=== PATIENT | female | born 1940 | race Caucasian/White ===

== ENCOUNTER 2016-09-23 05:14 | Inpatient (IN) | payer MEDICARE, OTHER ==
--- NOTE | 2016-09-17 12:06 | HP ---
PATIENT: FLY ALMAZAN MEDICAL RECORD: [id number] ACCOUNT: [id number] LOCATION[facility] : 38 ADMISSION DATE: 09/23/16 HISTORY AND PHYSICAL EXAMINATION FLY Wallace (76yo, F) ID# [id number]. Date/Time09/15/2016 09:[id number] Dept.NP_[facility] ClinicProviderEDBAKARI HYDE MDInsuranceMed Primary: [place]) Insurance # : [id number] PCP : PATTI MIRELES Referring Provider Name : PATTI MIRELES Employer Name : RETIRED Med Secondary: FOR LIFE ( - MEDICARE SUPPLEMENT) Insurance # : [id number] PCP : PATTI MIRELES Referring Provider Name : PATTI MIRELES Employer Name : RETIRED Prescription: ESI1 - Member is eligible. Chief Complaint Carotid stenosis Followup: Carotid artery stenosis s/p RCEA 07/10/16 Patient's Care Team Primary Care Provider (): PATTI MIRELES: [address] [address], , Referring Provider (): PATTI MIRELES: [address] [address], , Patient's Pharmacies [id number] (ERX): [phone] [place] [place] [address], , [facility] (ERX): [phone] [place] [address], , Vitals BP:100/60 sitting R arm 09/15/2016 10:13 am 90/60 standing 09/15/2016 10:13 amHR:60R/R 09/15/2016 10:13 amHt:5 ft 1 in 09/15/2016 10:02 amWt:208 lbs 09/15/2016 10:13 amBMI:39.3 09/15/2016 10:13 amAllergies Reviewed Allergies CALAMINE: Other (Severe)CYMBALTA: Other (Severe)DICLOFENACREGLANSome allergies listed in Document: #[id number] could not be added to this patient's chart. Please review this document and add these allergies to the patient's chart manually as needed.Medications Reviewed Medications ALPRAZolam 0.25 mg derbqy52/05/16 filledMEDCOamlodipine 10 mg-benazepril 20 mg capsule Take 1 capsule(s) every day by oral route.06/22/16 filledMEDCOamoxicillin 875 mg-potassium clavulanate 125 mg dbymtn40/08/17 filledMEDCOCeleBREX 200mg daily12/06/11 enteredHeather Farnamcelecoxib 200 mg /07/17 filledMEDCOclopidogrel 75 mg tablet Take 1 tablet(s) every day by oral route.07/14/16 filledMEDCOdiclofenac sodium 75 mg tablet,delayed rbzsimw18/22/15 filledMEDCOescitalopram 10 mg ckmnof97/17/16 filledMEDCOfurosemide 40mg daily07/18/16 enteredCindy Brownfurosemide 40 mg cwgwwi87/09/16 filledMEDCOHealthPro Test Lrylpb55/02/16 filledMEDCOHYDROcodone 10 mg-acetaminophen 325 mg tablet HISTORY AND PHYSICAL [id number] FLY ALMAZAN Take 1 tablet(s) every 4 hours by oral route.09/14/16 filledMEDCOJardiance 25 mg tablet Take 1 tablet(s) every day by oral route.07/18/16 enteredCindy BrownlevoFLOXacin 500 mg bkjzqu72/23/16 filledMEDCOmeloxicam 7.5 mg kslfna12/28/16 filledMEDCOmetFORMIN 500 mg tablet Take 1 tablet(s) every day by oral route.08/12/16 filledMEDCOoxyCODONE 15 mg /08/17 filledMEDCOpantoprazole 40 mg tablet,delayed yfvpgoc00/28/16 filledMEDCORequip 0.5 mg taczai56/07/16 filledMEDCOrOPINIRole 3 tabs at vumkxzh17/12/16 enteredCindy BrownTanzeum 50 mg/0.5 mL subcutaneous pen ajivmfte98/31/16 filledMEDCOTrulicity 0.75 mg/0.5 mL subcutaneous pen fqvmmexj42/21/16 filledMEDCOVentolin HFA 90 mcg/actuation aerosol upnylkt04/26/16 filledMEDCOVaccines Reviewed Vaccines Some vaccines listed in Document: #[id number] could not be added to this patient's chart. Please review this document and add these vaccines to the patient's chart manually as needed. Problems Reviewed Problems Sciatic nerve lesion Carotid artery stenosis, Bilateral - R<L Incisional hernia Knee pain Low back pain Family History Discussed Family History Non-contributory.Father- Malignant neoplastic diseaseMother- Malignant neoplastic diseaseUnspecified Relation- Malignant neoplastic diseaseSocial History Discussed Social History Cardiology Smoking Status: Never smoker High Cholesterol: Y High blood pressure: Y Diabetes: Y Alcohol intake: None Occupation: retired Marital status: Is blood transfusion acceptable in an emergency?: Y Surgical History Reviewed Surgical History Carotid Endarterectomy - 07/20/2016 - right side Laparoscopic incisional hernia repair - 07/18/2014 Total knee arthroplasty - 06/04/2012 Neuroplasty, major peripheral nerve, leg - 01/16/2012 Other - 2010 - bursecomy Other - 2009 - cataracts Other - 1997 - nose Other - 1991 - gall bladder Other - 1966 - hysterectomy Other - 1954 - appendix Other - 1947 - tonsils 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 HPI Cerebral Vascular Disease Reported by patient. Quality: tunnel vision; dizziness; blurred vision Aggravating Factors: position change severe left internal carotid artery stenosis ROS Patient reports exercise intolerance but reports no fever, no night sweats, no significant weight gain, and no significant weight loss. She reports dry eyes but reports no irritation and no vision change. She reports nose/sinus problems but reports no frequent nosebleeds. She reports shortness of breath when walking and light-headed on standing but reports no chest pain, no arm pain on exertion, no shortness of breath when lying down, no palpitations, and no known heart murmur. She reports shortness of breath but reports no cough, no wheezing, and no coughing up blood. She reports frequent diarrhea and nausea but reports no abdominal pain, no vomiting, normal appetite, not vomiting blood, and no constipation. She reports muscle weakness, arthralgias/joint pain, and back pain but reports no muscle aches and no swelling in the extremities. She reports restless legs but reports no loss of consciousness, no weakness, no numbness, no seizures, no dizziness, and no headaches. She reports easy bruising but reports no swollen glands. She reports no difficul ty hearing and no ear pain. She reports no sore throat, no bleeding gums, no snoring, no dry mouth, no mouth ulcers, no oral abnormalities, and no teeth problems. She reports no incontinence, no difficulty urinating, no hematuria, and no increased frequen c y. She reports no abnormal mole, no jaundice, and no rashes. She reports no depression, no sleep disturbances, feeling safe in relationship, and no alcohol abuse. She reports no fatigue. She reports no runny nose, no sinus pressure, no itching, no hives, and no frequent sneezing. ROS as noted in the HPI Physical Exam Patient is a 76-year-old female. Constitutional: General Appearance healthy-appearing, well developed, and overweight. Level of Distress NAD. Ambulation ambulation with cane. Ears, Nose, Throat: Ears grossly normal hearing. Nose no external nose lesion. Lips, Teeth, and Gums no mouth or lip ulcers. Oropharynx: moist mucous membranes. Cardiovascular: Apical Impulse not displaced or no thrill. Heart Auscultation normal s1 and s2, no rubs or gallops, and RRR and ANGELO. Neck Vessels bilateral carotid bruits. Arterial Pulses no abdominal aorta bruits, femoral bruits, or popliteal HISTORY AND PHYSICAL [id number] FLY ALMAZAN bruits; popliteal diminished (bilaterally) and dorsalis pedis diminished (bilaterally); and 2+ bilateral, carotid 2+ bilateral, and femoral 2+ bilateral. Edema edema and varicosities. Lungs: Repiratory Effort no dyspnea. Percussion no hyperresonance or dullness or flatness. Auscultation no wheezing, rhonchi, or rales / crackles and breathing sounds normal, good air movement, and CTA except as noted. Abdomen: Bowl Sounds normal. Inspection and Palpation no tenderness, guarding, masses, or rebound tenderness and soft and non-distended. Liver non-tender and no hepatomegaly. Spleen non-tender and no splenomegaly. Hernia none palpable. Musculoskeletal System: Gait And Stance normal gait and stance. Digits and Nails normal nails and no cyanosis. Joints, Bones, and Muscles limited ROM and abnormal strength. Neurologic: Cranial Nerves grossly intact. Reflexes DTRs 2+ bilaterally throughout. Sensation grossly intact. Lymph Nodes: Lymph Nodes no cervical LAD, supraclavicular LAD, axillary LAD, or inguinal LAD. Eyes: Lids and Conjunctivae no discharge or pallor and non-injected. Pupils PERRLA. Cornea grossly intact. EOM EOMI. Lens clear. Sclera non-icteric. Neck: Neck no masses or enlarged lymph nodes and supple, trachea midline, and carotid bruits (bilaterally). Thyroid no enlargement or nodules and non-tender. Skin: Inspection and Palpation no rash, lesions, ulcers, jaundice, or abnormal nevi. Assessment / Plan severe left internal carotid artery stenosis 1. Carotid artery stenosis - Bilateral I65.23: Occlusion and stenosis of bilateral carotid arteries CAROTID STENOSIS: CARE INSTRUCTIONS Discussion Notes scheduled for left carotid endarterectomy Return to Office to see Brandon Hyde MD at [facility] on or around 09/22/2016 Brandon Hyde MD for Surgery at [facility]_SURGERY SCHEDULE on 09/23/2016 at 07:30 AM BRANDON HYDE MD at 1206 CC: [id number] DICTATION DATE: 09/15/16 0930 TELEPHONE SERVICES SALES REPRESENTATIVE: WILFREDO 09/16/16 [id number] [place] [address]
[2016-09-22 11:57] LABS: HEMATOCRIT 39.7 % (36.0-48.0); HEMOGLOBIN 12.5 g/dL (12-16); MCHC 31.5 g/dL (31.0-37.0); MCV 82.7 fL (80.0-100.0); MEAN PLATELET VOLUME 10.5 fL (7.4-10.4); RBC 4.8 10x6/uL (4.00-5.40); RDW 15.6 % (11.5-14.5); WBC 9.8 10x3/uL (4.8-10.8)
[2016-09-22 12:01] LABS: APPEARANCE CLEAR (CLEAR); BILIRUBIN NEGATIVE (NEGATIVE); COLOR STRAW (YELLOW); GLUCOSE 1000 mg/dL (NEGATIVE); KETONE NEGATIVE (NEGATIVE); LEUKOCYTE ESTERASE NEGATIVE (NEGATIVE); NITRITE NEGATIVE (NEGATIVE); PROTEIN NEGATIVE (NEGATIVE); UROBILINOGEN NORMAL (NORMAL)
[2016-09-22 12:22] LABS: APTT 24.2 SECONDS (22.8-39.4); INR 0.91 (0.85-1.17)
[2016-09-22 12:39] LABS: ALBUMIN 3.8 g/dL (3.4-5.0); ANION GAP 12.3 mmol/L (8-16); BILIRUBIN - TOTAL 0.19 mg/dL (0.2-1.3); CALCIUM 9.2 mg/dL (8.5-10.1); CREATININE - SERUM 0.9 mg/dL (0.6-1.3); POTASSIUM - SERUM 4.3 mmol/L (3.5-5.1)
[2016-09-23] VITALS (40 sets, daily range): BP systolic 82–154; BP diastolic 39–67; BMI 38.1; BMI 38.4
[~2016-09-23] VITALS: Ht 157.5 cm; Wt 95.0 kg
[~2016-09-23 05:14] MED LIST: ANTIVERT25 MG PO; BIOTIN PO; CELEBREX200 MG PO; FUROSEMIDE20 MG PO; FUROSEMIDE40 MG PO; GLUCOPHAGE500 MG PO; HYDROCODONE-APA1 TAB PO; JARDIANCE PO; JARDIANCE25 MG PO; LASIX20 MG; LEVAQUIN500 MG PO; LOTREL 10/20 CA1 CAP PO; OSENI PO; PLAVIX75 MG PO; PROTONIX40 MG PO; REQUIP0.5 MG PO; ROXICODONE15 MG PO; TRULICITY SC
--- NOTE | 2016-09-23 10:42 | NUR ---
PT ARRIVED TO ROOM 10:14. BP ON ART LINE 129/40, HR 84, CVP 7, 97% SAT ON 10L SIMPLE MASK, 22 RESPIRATIONS. LEFT NECK DRESSING INTACT, CLEAN AND DRY. ANGELA DRAIN DRESSING IS CLEAN AND DRY, WITH BULB COMPRESS. PT HAS LEFT SUBCLAVIAN CENTRAL LINE WITH PLASMALYTE RUNNING AT 100ML/HR AND CLEVIPREX AT 8.5MCG/H. INVOS READING L78,R78. PT HAS CRITICORE TREVINO TEMP IS 36.2 PT HAS BRUNO'S AND SCD'S ON. PEDAL PULSES PALPABLE. PT HAS AWAKENED SEVERAL TIMES AND SPOKE, THEN GOES BACK TO SLEEP. HAS RIGHT RADIAL ART LINE WITH WRIST PROTECTOR. ICE HAS BEEN APPLIED TO SURGICAL SITE OF LEFT NECK.
--- NOTE | 2016-09-23 11:49 | NUR ---
FAMILY AT BEDSIDE. PT AWAKES AND GOES BACK TO SLEEP. RESPONDS APPROPRIATELY TO CONVERSATION. C/O PAIN AT CHEST AND TAPS ON AREA OF CENTRAL LINE.
--- NOTE | 2016-09-23 13:40 | NUR ---
RT IN ROOM FOR INCENTIVE SPIROMETRY. PT ABLE TO REACH [phone]. SHE IS AWAKE CONSISTENTLY NOW AND CONVERSANT. RESTING QUIETLY WITH SISTER AT BEDSIDE.
--- NOTE | 2016-09-23 15:16 | NUR ---
[facility] IN PHARMACY CALLED. WE DO NOT STOCK JARDIANT IN FACILITY. PATIENT WILL HAVE FAMILY MEMBER BRING UP SO THAT SHE CAN HAVE IT AVAILABLE TO HER IN THE AM.
--- NOTE | 2016-09-23 15:32 | CN ---
PATIENT NAME:FLY ALMAZAN MEDICAL RECORD: [id number] : 38 LOCATION:[facility] ADMIT DATE: 09/23/16 ACCOUNT: [id number] CONSULTING PHYSICIAN: RICHY MALAGON DO REFERRING PHYSICIAN: JOSE CRUZ HYDE MD DATE OF CONSULTATION: 09/23/2016 [facility] Consultation HISTORY OF PRESENT ILLNESS: Fly Almazan is a 76-year-old white female, patient of Dr. Rocha's and Dr. Hyde'puja, who was seen postoperatively after going left carotid endarterectomy. She was hospitalized here in July and found to have severe bilateral disease. She underwent repair of the right internal carotid artery at that time. She is here for the left. Postoperatively, her pressures are doing well. Her pain seems controlled and she is not in any distress. PAST MEDICAL HISTORY: Significant for known hypertension, diabetes mellitus, COPD, sleep apnea for which she wears O2 at night, DJD and restless leg. PAST SURGICAL HISTORY: Previous surgeries include a gallbladder surgery, hernia repair, hysterectomy, tonsils, appendectomy in 1966, a left knee surgery, right knee surgery, cataracts, left hip bursa piriformis release, right knee replacement and lumbar fusion. ALLERGIES OR INTOLERANCES: INCLUDE ARTHROTEC, CALAMINE CYMBALTA AND METOCLOPRAMIDE. HOME MEDICATIONS: At this time, include metformin 500 b.i.d., Jardiance 25 daily, pantoprazole 40 mg a day, furosemide 40 mg a day, Requip 0.5 three tabs at bedtime, amlodipine and benazepril 10/20 daily, and Plavix 75 a day. FAMILY HISTORY: Noncontributory. SOCIAL HISTORY: See previous H&P. REVIEW OF SYSTEMS: At this time, she complains of some pain in her chest and neck. She denies any shortness of breath. She has been a little nauseated. She is still a little sedated from her procedure. OBJECTIVE: VITAL SIGNS: Temperature 96.4, pulse of 84, respirations 22, BP 129/74 and pulse is 97. PREOPERATIVE LABORATORY DATA: White count was 9.8, H&H 12.5 and 39.7 with a platelet count 242. Sodium 141, potassium 4.3, BUN 28, creatinine 0.9. Coags were okay. Urine was clear. Preop chest x-ray showed no acute pulmonary disease. PHYSICAL EXAMINATION: GENERAL: She is a little sedated, but arousable and carries on a conversation. HEENT: Mucous membranes are moist. NECK: Soft and supple. HEART: Regular at this time with a rate in the mid 70s. LUNGS: With good breath sounds bilaterally. Dressing on the left neck. She CONSULT REPORT [id number] FLY ALMAZAN has got a CVL on the left. ABDOMEN: Soft, nontender. LOWER EXTREMITIES: Without edema. IMPRESSION: 1. Known carotid artery disease, status post left carotid endarterectomy. 2. Previous right carotid endarterectomy. 3. Hypertension. 4. Diabetes. 5. Obstructive sleep apnea. 6. Obesity. PLAN: Continue ICU care for now. Monitor the blood sugar and pressure. Continue with current ICU meds. Appreciate the consult, we will follow along. TRANSINT:[id number] Voice Confirmation ID: [id number] DOCUMENT ID: [id number] RICHY MALAGON DO at 1532 CC: [id number] DICTATION DATE: 09/23/16 1110 METALWORKING INSTRUCTOR: 09/23/16 1308 ADM IN [facility] [address] [id number]
--- NOTE | 2016-09-23 16:11 | NUR ---
SISTER YANDEL BROUGHT JARDIANCE REQUESTED. THERE WERE 52 TABLETS IN CONTAINER. SISTER WAS WITNESS TO COUNT WELL LAZARO FROM CASE MANAGEMENT.
--- NOTE | 2016-09-23 16:14 | NUR ---
Patient Name: FLY ALMAZAN Admission Status: Elective Accout number: [id number] Admission Date: 09-23-2016 : 1940 Admission Diagnosis: Attending: ANNA Current LOS: 1 Anticipated DC Date: 09-24-2016 Planned Disposition: Home Primary Insurance: MEDICARE A & B Is the patient Alert and Oriented? Yes * How many steps to enter\exit or inside your home? NONE * PCP DR MIRELES * [facility] [address] * Preadmission Environment Home with Family * ADLs Independent * Equipment Cane Other Rolling Walker * Other Equipment POWER CHAIR * List name and contact numbers for known caregivers / representatives who currently or will assist patient after discharge: YANDEL GONZALES, SISTER, * Community resources currently utilized None * Please name any agencies selected above. HAS USED [facility] IN THE PAST * Additional services required to return to the preadmission environment? No * Can the patient safely return to the preadmission environment? Yes * Has this patient been hospitalized within the prior 30 days at any hospital? No Discharge Planning Comments: CM MET WITH PATIENT TO ASSESS DC PLAN/NEEDS. PT STATED THAT SHE LIVES AT HOME WITH HER GRANDSON AND IS INDEPENDENT IN HER CARE/ADL'S. SHE STATED THAT SHE DRIVES HERSELF AND THAT HER GRANDSON, LEAH, WILL DRIVE HER HOME AT DISCHARGE. SHE REPORTS MOSTLY AMBULATING WITH NO ASSISTANCE, BUT THAT SHE OCCASIONALLY USES A CANE. VOICED NO NEED FOR DME AT DISCHARGE. SHE STATED SHE HAS USED [facility] IN THE PAST, BUT DOES NOT FEEL SHE WILL REQUIRE ANY HH SERVICES AT DC. SHE FEELS HER HOME IS A SAFE PLACE AND PLANS TO RETURN HOME AT DISCHARGE. SHE VOICED NO DC NEEDS AT THIS TIME. CM WILL FOLLOW AND ASSIST WITH ANY DC NEEDS THEY ARISE. Route Supervisor: Sandy Pike RN, CM
--- NOTE | 2016-09-23 17:05 | NUR ---
PT EATING DINNER AT THIS TIME. ALERT AND CONVERSANT. VOICES NO COMPLAINTS
--- NOTE | 2016-09-23 18:54 | NUR ---
CALLED DR HYDE REGARDING HR DIPPING DOWN INTO 50'S. HE SAID SHE DID THIS ON LAST SURGERY. HE IS NOT TOO CONCERNED, JUST CONTINUE TO MONITOR. BP IS STABLE.
--- NOTE | 2016-09-23 19:15 | NUR ---
BEDSIDE SHIFT REPORT COMPLETED.
--- NOTE | 2016-09-23 19:30 | NUR ---
SHIFT ASSESSMENT COMPLETED. SEE ASSESSMENT FLOWSHEET. WANTING HER PM DOSE OF REQUIP. RT A-LINE FLAT AND REPOSITIONED TO GET APPROPRIATE WAVEFORM. LEFT NECK INCISION C/D/I. ANGELA DRAIN COMPRESSED WITH MINIMAL BLOODY DRAINAGE. BRUNO'S AND SCD'S TO LE'S BILATERALLY. TREVINO CATHETER TO CRITICORE MONITORING-CLEAR, YELLOW URINE NOTED. TURNED AND REPOSITIONED IN BED TO RT SIDE. SINUS ANGIE TO SINUS RHYTHM ON THE MONITOR. CLEVIPREX TITRATED DOWN TO EFFECT TO MAINTAIN SBP<140MMHG. WILL MONITOR.
--- NOTE | 2016-09-23 19:40 | NUR ---
PT HEART RATE NOW IN LOW 70'S. HAVE BEEN ABLE TO COME DOWN ON CLEVIPREX AND HAS HELPED BRING PT OUT OF BRADYCARDIC RHYTHM.
--- NOTE | 2016-09-23 19:50 | NUR ---
CALLED DR. MARY ELLEN EVANS HER PM REQUIP MED. PATIENT REQUESTING IT. NEW ORDERS RECEIVED. WILL MONITOR.
--- NOTE | 2016-09-23 20:45 | NUR ---
2100 MEDS GIVEN. ULTRAM GIVEN PO FOR PAIN TO LEFT NECK AND DESCRIBED CONSTANT DISCOMFORT. FINGERSTICK SUGAR-146. PO GLUCOPHAGE GIVEN. WILL CONTINUE TO MONITOR.
--- NOTE | 2016-09-23 22:50 | NUR ---
NO NEURO CHANGES NOTED. WILL CONTINUE TO MONITOR.
--- NOTE | 2016-09-23 23:09 | NUR ---
REASSESSMENT COMPLETED. SEE ASSESSMENT FLOWSHEET. WILL CONTINUE TO MONITOR.
--- NOTE | 2016-09-23 23:50 | NUR ---
ASSISTED ONTO BEDPAN PER REQUEST TO HAVE A BM. NO RESULTS. REPOSITIONED IN BED. A-LINE POSITIONAL. CLEVIPREX INCREASED TO 5MG/HR DUE TO SBP 170'S. WILL MONITOR.
[2016-09-24] VITALS (86 sets, daily range): BP systolic 91–158; BP diastolic 34–97; Ht 157.5 cm; Wt 95.0 kg
--- NOTE | 2016-09-24 01:10 | NUR ---
PULLED UP IN BED PER REQUEST. REPORTS FEELING MORE COMFORTABLE NOW. WILL CONTINUE TO MONITOR.
--- NOTE | 2016-09-24 03:00 | NUR ---
POSITIONAL A-LINE. READJUSTED POSITION. FLUSHES WELL. NO ACUTE CHANGES NOTED. WILL MONITOR.
--- NOTE | 2016-09-24 04:25 | NUR ---
REASSESSMENT COMPLETED. SEE ASSESSMENT. AWOKE TO PLACE NIBP CUFF TO LEFT ARM FOR COMPARISION TO A-LINE THAT IS POSITIONAL AT TIMES. NO CHANGES IN ASSESSMENT. DECREASED CLEVIPREX TO 4MG/HR. WILL CONTINUE TO MONITOR.
--- NOTE | 2016-09-24 05:45 | NUR ---
C/O PAIN TO LEFT SIDE OF CHEST AND TO MIDSTERNAL. REPORTS PAIN A 2/10 AND DESCRIBED HEAVINESS/PRESSURE. REPORTS IT ISN'T LIKE THE PAIN SHE HAD YESTERDAY AFTERNOON. ZOFRAN GIVEN IN CASE OF INDIGESTION/NAUSE. 12-LEAD EKG DONE AND STAT ABG. WILL MONITOR.
--- NOTE | 2016-09-24 06:00 | NUR ---
SPEAKING OF BURYING LAST GEMA. TEARFUL SPEAKIN ABOUT HIM.
--- NOTE | 2016-09-24 06:35 | NUR ---
DR. HYDE CALLED AND MADE AWARE OF CHEST PAIN, ABG RESULTS AND 12-LEAD EKG RESULTS. NO NEW ORDERS EXCEPT TO D/C LINES AND GET OOB FOR BREAKFAST. TITRATED CLEVIPREX TO 4MG/HR. WILL MONITOR.
--- NOTE | 2016-09-24 07:45 | NUR ---
A-LINE AND TREVINO DC'D PER ORDER. MANUAL PRESSURE APPLIED TO CANDACE SITE TIMES 5 MINUTES. CLEAR DRESSING APPLIED. PT INSTRUCTED ON S/SX OF BLEEDING. PT UP TO CHAIR FOR BREAKFAST.
--- NOTE | 2016-09-24 09:45 | NUR ---
PT VOIDED POST TREVINO DC.
--- NOTE | 2016-09-24 11:55 | OP ---
PATIENT NAME: FLY ALMAZAN MEDICAL RECORD: [id number] :38 LOCATION:[facility] ADMISSION DATE:09/23/16 SURGEON: BR[place] HYDE MD DATE OF OPERATION: 09/23/2016 SURGEON: Brandon Hyde MD ANESTHESIA: General endotracheal, Dr. Infante. OPERATION PERFORMED: Left carotid endarterectomy with patch angioplasty. PREOPERATIVE DIAGNOSIS: Severe left internal carotid artery stenosis. POSTOPERATIVE DIAGNOSIS: Severe left internal carotid artery stenosis. INDICATION FOR OPERATION: Severe left internal carotid artery stenosis. FINDINGS AT OPERATION: Severe left internal artery stenosis. There were no EEG changes with clamping or unclamping of the carotid artery. DESCRIPTION OF PROCEDURE: After informed consent, adequate preoperative medication evaluation, the patient was brought to the operating room, placed on the table in the supine position. After induction of general endotracheal anesthesia and application of appropriate monitoring devices, the left neck and chest were prepped and draped in a sterile field, utilizing Betadine scrub, alcohol, and Betadine solution. Betadine-impregnated drape was also used. An oblique incision was made in the skin crease. Dissection carried down the fascia. Hemostasis maintained with electrocautery. The facial vein was identified and divided. Utilizing sharp dissection, the common carotid, internal and external carotid arteries were dissected free of surrounding structures, protecting the neurological structures. The patient was given a calculated dose of heparin, after 3 minutes, clamps were applied. After 2 minutes, no EEG changes. The arteriotomy was made and extended with Strong scissors. Artery underwent endarterectomy sharply. Artery underwent extensive debridement and irrigation. Utilizing a CorMatrix vascular patch and running 7-0 Prolene suture, the arteriotomy was closed with patch angioplasty technique. All maneuvers to remove trapped air were performed. The clamps were removed sequentially. There were no EEG changes. The patient was given a calculated dose of protamine to reverse the heparin. Hemostasis was achieved, and a #7 Vaibhav-Patricio drain was left in the depth of wound and brought through the base of the neck. Neck was again irrigated. Instrument count and sponge count were correct times 2. Neck was closed in layers utilizing 3-0 Vicryl on the platysma, 5-0 subcuticular Monocryl on the skin. Sterile dressings were applied. The patient tolerated the procedure well and transferred to cardiovascular recovery in satisfactory condition. TRANSINT:[id number] Voice Confirmation ID: [id number] DOCUMENT ID: [id number] OPERATIVE REPORT [id number] FLY ALMAZAN EDWARD MD at 1155 CC: [id number] DICTATION DATE: 09/23/16 0956 CODING ADVISOR: 09/23/16 1801 [id number] [place] [address]
--- NOTE | 2016-09-24 12:40 | NUR ---
ASSISTED TO BATHROOM. SMALL RESULTS NOTED FROM SUPPOSITORY.
--- NOTE | 2016-09-24 19:15 | NUR ---
ASSESSMENT COMPLETED. SEE ASSESSMENT FLOWSHEET. READING HER BOOK AND LOOKING AT HER PHONE. NEURO INTACT. REPLACED TEMP SENSOR TO RT AXILLARY AREA. LEFT SC CVL WITH PLASMALYTE @ 10ML/HR AND CLEVIPREX @ 5MG/HR DECREASED TO 4MG/HR. TEDS AND SCD'S TO LOWER EXTREMITIES BILATERALLY. CONNECTED SCD'S TO PUMP. DENIES PAIN AT PRESENT. ABDOMEN SOFT AND OBESE. LEFT NECK INCISION DRSG C/D/I. LEFT UPPER CHEST TO OLD ANGELA DRAIN SITE C/D/I. WILL CONTINUE TO MONITOR.
--- NOTE | 2016-09-24 20:50 | NUR ---
TURNED DOWN CLEVIPREX TO 1MG/HR. ASSISTED WITH AMBULATING TO BATHROOM TO URINATE. NO DIFFICULTIES AMBULATING. WILL MONITOR.
--- NOTE | 2016-09-24 21:30 | NUR ---
D/C'ED CLEVIPREX GTT.
--- NOTE | 2016-09-24 23:20 | NUR ---
EYES CLOSED. NO ACUTE DISTRESS NOTED. WILL MONITOR.
[2016-09-25] VITALS (28 sets, daily range): BP systolic 119–154; BP diastolic 40–59
--- NOTE | 2016-09-25 00:15 | NUR ---
REASSESSMENT COMPLETED. SEE ASSESSMENT. NO NEW ACUTE CHANGES. TURNED SELF IN BED TO LEFT SIDE. REPORTS SHE MAY HAVE TO GO USE THE BATHROOM SOON. DENIES FOR NOW. CALL LIGHT WITHIN REACH. WILL MONITOR.
--- NOTE | 2016-09-25 01:05 | NUR ---
EYES CLOSED. NO ACUTE DISTRESS NOTED. WILL MONITOR.
--- NOTE | 2016-09-25 02:45 | NUR ---
ASSISTED TO BATHROOM TO URINATE. BACK TO BED WITH ASSIST. REASSESSMENT COMPLETED. SEE ASSESSMENT FLOWSHEET. NO NEURO DEFICITS. C/O OF LEFT CHESTTO MID CHEST PAIN AT A 1/10 ON NUMBER SCALE. DENIES PAIN MEDS. NO EKG CHANGES NOTED. WILL MONITOR.
--- NOTE | 2016-09-25 04:30 | NUR ---
EYES CLOSED. NO ACUTE DISTRESS NOTED. WILL CONTINUE TO MONITOR.
--- NOTE | 2016-09-25 05:30 | NUR ---
RESTARTED CLEVIPREX AT 2MG/HR DUE TO SBP >140. WILL MONITOR.
--- NOTE | 2016-09-25 12:30 | NUR ---
DR. HYDE AT BEDSIDE DISCUSSING DC HOME.
--- NOTE | 2016-09-25 13:35 | NUR ---
DC INSTRUCTIONS REVIEWED WITH PT. NO CURRENT QUESTIONS. PT DC'D HOME WITH FAMILY VIA WHEELCHAIR.
== END 2016-09-25 13:40 | disposition home or self-care (01) | DRG 39 ==
LOC: D.CVICU 05:14 → D.SDCHOLD 05:14 → D.CVICU 09:19
PROVIDERS: ADMIT Internal Medicine Cardiovascular Disease
PROC: 03UL0JZ Supplement Left Internal Carotid Artery with Synthetic Substitute, Open Approach (ICD-10-PCS; 2016-09-23)
PROC: 03CL0ZZ Extirpation of Matter from Left Internal Carotid Artery, Open Approach (ICD-10-PCS; principal; 2016-09-23 07:30)
DX: I65.22 Occlusion and stenosis of left carotid artery (principal); I10 Essential (primary) hypertension; E11.9 Type 2 diabetes mellitus without complications; J44.9 Chronic obstructive pulmonary disease, unspecified; G47.33 Obstructive sleep apnea (adult) (pediatric); E66.9 Obesity, unspecified; Z68.39 Body mass index [BMI] 39.0-39.9, adult; K21.9 Gastro-esophageal reflux disease without esophagitis; I25.10 Atherosclerotic heart disease of native coronary artery without angina pectoris

== ENCOUNTER → 2017-02-02 15:49 | Outpatient (CLI) | payer MEDICARE, OTHER ==
[2016-09-24 08:44] VITALS: BMI 38.3
== END | disposition home or self-care (01) ==
LOC: D.MRI 15:49
DX: R42 Dizziness and giddiness (principal)

== ENCOUNTER → 2017-09-13 09:13 | Outpatient (CLI) | payer MEDICARE, OTHER ==
[2016-09-24 08:44] VITALS: BMI 38.3
== END | disposition home or self-care (01) ==
LOC: D.US 09:13
DX: I70.219 Atherosclerosis of native arteries of extremities with intermittent claudication, unspecified extremity (principal); E11.9 Type 2 diabetes mellitus without complications

== ENCOUNTER → 2017-09-27 11:07 | Outpatient (CLI) | payer MEDICARE, OTHER ==
[~2017-09-27] VITALS: Ht 157.5 cm; Wt 96.8 kg
--- NOTE | ~2017-09-27 | HEMODYNAMI ---
PATIENT:FLY ALMAZAN MEDICAL RECORD: [id number] : 36 LOCATION:[facility] ADMISSION DATE: 09/27/17 Generatedon:09/27/201715:16 Patient name: FLY ALMAZAN Patient #: [id number] SSN: D OB: 1940 Date of study: 09/27/2017 Page: Of Hemodynamic Procedure Report Patient Data Patient Demographics Procedure consent was obtained First Name: FLY Gender: Female Last Name: NORAH : 1940 [facility] Initial: J Age: 77 year(s) Patient #: [id number] Race: Unknown Additional ID: [id number] Contact details [address]: [address] [place] [address] State: [place] City: [place] Zip code: [address] Past Medical History Allergies Allergen Reaction Date Comments Reported Other allergy 09/27/2017 ARTHROTEC, CYMBALTA Admission Admission Data Admission Date: 09/27/2017 Admission Time: 11:07 Lab Results Lab Result Date: 09/27/2017 Lab Result Time: 0:00 Biochemistry Name Units Result Min Max BUN mg/dl 26 --(----)-* 7 18 Creatinine mg/dl 0.9 --(-*--)-- 0.6 1.3 CBC Name Units Result Min Max Hemoglobin g/dl 11.6 *-(----)-- 13.5 17.5 Procedure Procedure Types Cath Procedure Diagnostic Procedure LHC LH w/Coronaries PCI Procedure Coronary Stent Coronary Stent Initial Miscellaneous Procedures Moderate Sedation up to 30 minutes Procedure Description Procedure Date Procedure Date: 09/27/2017 Procedure Start Time: 14:40 Procedure End Time: 15:15 Procedure Staff Name Function Garrett Cota MD Performing Physician Ene Prado RT Monitor Tammi Douglas RT Scrub Roshan Ayala RN Nurse Procedure Data Cath Procedure Fluoroscopy Diagnostic fluoroscopy Total fluoroscopy Time: 8 time: 8 min min Diagnostic fluoroscopy Total fluoroscopy dose: dose: 1068 mGy 1068 mGy Contrast Material Contrast Material Type Amount (ml) Isovue 300 161 Entry Location Entry Primary Successful Side Size Upsize Upsize Entry Closure Succes sful Closure Location (Fr) 1 (Fr) 2 (Fr) Remarks Device Remarks Femoral Right 5 Fr 6 Fr Exoseal artery Short Estimated blood loss: 10 ml Diagnostic catheters Device Type Used For End Catheter Placement MULTIPACK JL 4.0 5Fr Procedure catheter MULTIPACK 3DRC 5Fr Procedure catheter MULTIPACK Pigtail 5 Fr Procedure catheter Procedure Complications No complications Procedure Medications Medication Administration Route Dosage 0.9% NaCl I.V. 100 ml/hr Oxygen NC 2 l/min Heparin Flush Bag added to field 2 bags (1000units/500ml NS) Lidocaine 2% added to field 20 Radial Cocktail added to field 1 syringe (Verapomil 2mg/Nitro 400mcg/Heparin 1500units) Versed I.V. 2 mg Fentanyl I.V. 100 mcg Heparin Bolus I.V. 9700 units Plavix P.O. 600 mg Hemodynamics Rest Heart Rate: 61 (bpm) Pressure Samples Time Site Value (mmHg) Purpose Heart Use Rate(bpm) 14:50 LV 187/12,30 Snapshot 62 Gradients Valve Time Site Site Mean SEP/DFP Peak To Heart Use 1 2 (mmHg) (sec/min) Peak Rate (mmHg) (bpm) Aortic 14:51 LV AO 58 Snapshots Pre Cath Intra NCS Post Cath Vital Signs Time Heart Resp SPO2 etCO2 NIBP (mmHg) Rhythm Pain Sedation Rate (ipm) (%) (mmHg) Status Level (bpm) 14:35:32 69 17 99 21.9 238/97(188) NSR 0 (11) 10(A) , No pain 14:40:43 67 16 92 0 165/75(134) NSR 0 (11) 10(A) , No pain 14:46:30 53 20 97 0 161/77(124) NSR 0 (11) 9(A) , No pain 14:52:18 58 18 96 0 169/83(131) NSR 0 (11) 9(A) , No pain 14:58:08 59 21 96 0 163/71(141) NSR 0 (11) 9(A) , No pain 15:03:07 59 15 99 33.2 166/76(130) NSR 0 (11) 9(A) , No pain 15:08:08 58 16 98 0 168/76(133) NSR 0 (11) 9(A) , No pain 15:14:15 62 26 99 33.1 211/81(164) NSR 0 (11) 10(A) , No pain Medications Time Medication Route Dose Verified Delivered Reason Note s Effectiveness by by 14:37:41 0.9% NaCl I.V. 100 Roshan Roshan Per physician ml/hr Lucy Ayala RN RN 14:38:00 Oxygen NC 2 l/min Roshan Roshan Per physician Lucy Ayala RN RN 14:38:11 Heparin Flush added 2 bags Roshan Roshan for local Bag to Lorigan Lorigan anesthetic (1000units/500ml field SHARP RN NS) 14:38:21 Lidocaine 2% added 20ml Roshan Roshan for local to vial Lorigan Lorigan anesthetic field SHARP RN 14:38:32 Radial Cocktail added 1 Roshan Roshan used for (Verapomil to syringe Lorigan Lucy procedure 2mg/Nitro field SHARP RN 400mcg/Heparin 1500units) 14:38:42 Versed I.V. 2 mg Roshan Roshan for sedation Lucy Ayala RN RN 14:38:50 Fentanyl I.V. 100 mcg Roshan Roshan for sedation Lucy Ayala RN RN 14:59:33 Heparin Bolus I.V. 9,700 Roshan Roshan for units Lucy Ayala anticoagulation RN RN 15:15:35 Plavix P.O. 600 mg Roshan Roshan for Lucy Ayala antiplatelet RN RN therapy Procedure Log Time Note 14:16:34 Roshan Ayala RN sent for patient. Start room use. 14:16:35 Time tracking: Regular hours 14:16:38 Plan of Care:Hemodynamics will remain stable., Cardiac rhythm will remain stable., Comfort level will be maintained., Respiratory function will remain adequate., Patient/ family verbilizes understanding of procedure., Procedure tolerated without complication., Recovers from procedure without complications.. 14:16:39 Signed procedure consent form obtained from patient. 14:17:55 H&P Date Dictated: 09/20/2017 Within 30 days and on chart., H&P Addendum completed by physician on day of procedure. (MUST COMPLETE FOR ALL OUTPATIENTS). 14:18:22 Patient allergic to Other allergyARTHROTEC, CYMBALTA 14:20:14 Lab Result : BUN 26 mg/dl 14:20:14 Lab Result : Creatinine 0.9 mg/dl 14:20:14 Lab Result : Hemoglobin 11.6 g/dl 14:21:27 Patient received from Pre/Post Procedure Room to CCL 1 Alert and oriented. Tansferred to table in Supine position. 14:21:28 Warm blankets applied, and jose hugger turned on for patient comfort. 14:21:29 Correct patient and procedure confirmed by team. 14:21:31 ECG and BP/O2 sat monitors applied to patient. 14:33:12 Vital chart was started 14:33:16 Full Disclosure recording started 14:33:17 Pre-procedure instructions explained to patient. 14:33:18 Pre-op teaching completed and patient verbalized understanding. 14:33:20 Family in patients room. 14:33:24 Patient NPO since Midnight. 14:33:47 Is the patient allergic to Iodine/contrast media? No. 14:33:51 Is patient on blood thinner?Yes 14:34:01 HELD XARELTO FOR WEEK 14:34:03 Patient diabetic? Yes. 14:34:04 If diabetic: On Metformin? Yes 14:34:06 If on Metformin: Last Dose? 09/25/2017 14:34:09 Previous problem with sedation/anesthesia? No ? 14:34:10 Snore? Yes 14:34:11 Sleep apnea? Yes 14:34:13 Deviated septum? No 14:34:14 Opens mouth fully? Yes 14:34:15 Sticks out tongue? Yes 14:34:17 Airway obstruction? No ? 14:34:18 Dentures? No ? 14:34:22 Pre procedure: right dorsailis pedis pulse 2+ Normal; easily identifiable; not easily obliterated 14:34:24 Modified Yuan's test Ulnar < 7 seconds 14:34:26 Patient pain scale 0/10 ?. 14:34:44 IV patent on arrival in left hand with 0.9% NaCl at [facility]. 14:34:46 Lab results completed and on chart. 14:34:48 Right Radial & Right Groin area was prepped with chlora-prep and draped in sterile fashion 14:34:50 Alarms reviewed by R. N. 14:34:50 Sharps counted by scrub and verified by R.N. 14:34:52 --------ALL STOP TIME OUT------ 14:34:53 Final Timeout: patient, procedure, and site verified with staff and physician. All members of the team are in agreement. 14:35:12 Right Radial & Right Groin site verified by team. 14:35:15 Physical assessment completed. ASA score P 2 - A patient with mild systemic disease as per Garrett Cota MD. 14:35:19 Sedation plan: IV Moderate Sedation Medication:Versed, Fentanyl 14:35:29 Use device set Radial Dx or PCI 14:35:30 ACIST Syringe (40876) opened to sterile field. 14:35:31 Bag Decanter (2002S) opened to sterile field. 14:35:32 Tegaderm 4 x 4 (1626W) opened to sterile field. 14:35:33 ACIST Manifold (39740) opened to sterile field. 14:35:34 ACIST Hand Control (14009) opened to sterile field. 14:35:35 Medline Cath Pack ([id number]) opened to sterile field. 14:35:36 SHEATH 6FR Slender ([id number]) opened to sterile field. 14:35:37 DIAGNOSTIC WIRE .035 260cm J wire (384522) opened to sterile field. 14:35:37 MBrace Wrist Support ([id number]) opened to sterile field. 14:35:38 NEEDLE Cook 21G 4cm Radial (G28606) opened to sterile field. 14:37:41 0.9% NaCl 100 ml/hr I.V. was administered by Roshan Ayala RN; Per physician; 14:38:00 Oxygen 2 l/min NC was administered by Roshan Ayala RN; Per physician; 14:38:11 Heparin Flush Bag (1000units/500ml NS) 2 bags added to field was administered by Roshan Ayala RN; for local anesthetic; 14:38:21 Lidocaine 2% 20ml vial added to field was administered by Roshan Ayala RN; for local anesthetic; 14:38:32 Radial Cocktail (Verapomil 2mg/Nitro 400mcg/Heparin 1500units) 1 syringe added to field was administered by Roshan Ayala RN; used for procedure; 14:38:42 Versed 2 mg I.V. was administered by Roshan Lorigan RN; for sedation; 14:38:50 Fentanyl 100 mcg I.V. was administered by Roshan Ayala RN; for sedation; 14:40:06 Zero performed for pressure channel P1 14:40:10 Procedure started. 14:40:18 Local anesthetic to right radial artery with Lidocaine 2% by Garrett Cota MD.INITIAL ACCESS ONLY 14:41:07 Zero performed for pressure channel P1 14:43:14 Use device set Multipack Set 14:43:16 DIAGNOSTIC Multipack 5Fr catheter set (PR0300) opened to sterile field. 14:43:23 SHEATH 5FR [place] (NLX024) opened to sterile field. 14:44:40 Local anesthetic to right femoral artery with Lidocaine 2% by Garrett Cota MD.ADDITIONAL ACCESS 14:44:47 A 5 Fr sheath was inserted into the Right Femoral artery 14:45:13 A MULTIPACK JL 4.0 5Fr catheter was advanced over the wire and used for Procedure. 14:46:46 Catheter exchanged over wire. 14:47:02 A MULTIPACK 3DRC 5Fr catheter was advanced over the wire and used for Procedure. 14:47:16 Baseline sample Acquired. 14:47:21 Rhythm: atrial fibrillation 14:48:30 RCA angiography performed. 14:49:03 Catheter exchanged over wire. 14:49:22 A MULTIPACK Pigtail 5 Fr catheter was advanced over the wire and used for Procedure. 14:50:22 LV gram done using SARABIA 14:50:24 Injector settings: Ml/sec: 10, Volume: 20, 14:50:50 LV hemodynamics recorded. 14:51:23 EF : 50 % 14:52:06 Catheter removed. 14:52:11 SHEATH 6FR [place] (AAB585) opened to sterile field. 14:52:17 TUBING High Pressure Extension Tubing (Cipriano) ([id number]) opened to sterile field. 14:52:26 BMW 300cm [place] 2 J wire ([id number]) opened to sterile field. 14:52:45 GUIDE 6FR 3DRC catheter ([id number]) opened to sterile field. 14:52:57 Sheath upsized to a 6 Fr Short. 14:53:35 INFLATOR Merit BasixCompak (YC4566) opened to sterile field. 14:53:45 6 Fr 3DRC guide catheter was inserted over the wire 14:55:25 GUIDE REMOVED. DAMPENED PRESSURE 14:56:06 GUIDE 6FR 3DRC SH catheter ([id number]) opened to sterile field. 14:56:24 6 Fr 3DRC SH guide catheter was inserted over the wire 14:57:45 BMW 300 wire advanced. 14:59:33 Heparin Bolus 9,700 units I.V. was administered by Roshan Ayala RN; for anticoagulation; 15:03:27 Wire advanced across lesion. 15:07:44 Inflation Number: 1 A INTEGRITY OTW 3.0 X 15 stent ([id number]) was prepped and advanced across the Prox RCA. The stent was deployed at 14 AYLEEN for 0:10 (min:sec). 15:08:20 EXOSEAL 6Fr (EX600) opened to sterile field. 15:08:50 Stent catheter was removed intact over wire. 15:08:50 Wire removed. 15:08:50 Guide catheter removed. 15:10:36 Sheath removed intact; hemostasis achieved with Exoseal to the Right Femoral artery. 15:10:41 Procedure ended.(Physican Out) 15:11:05 Fluoroscopy time 08.00 minutes. 15:11:10 Fluoroscopy dose: 1068 mGy 15:11:10 Flurop Dose total: 1068 15:11:19 Contrast amount:Isovue 300 161ml. 15:11:21 Sharps counted by scrub and verified by R.N. 15:11:24 Post-op/insertion site Right Femoral artery dressed using a 4 x 4 and Tegaderm. 15:11:28 Post right femoral artery:stable, soft, clean and dry 15:11:31 Post Procedure Pulses reassessed and unchanged 15:11:34 Post procedure: right dorsailis pedis pulse 2+ Normal; easily identifiable; not easily obliterated. 15:11:37 Post-procedure physical assessment completed. ASA score P 2 - A patient with mild systemic disease as per Garrett Cota MD. 15:11:40 Post procedure rhythm: unchanged. 15:11:42 Estimated blood loss: 10 ml 15:11:43 Post procedure instruction explained to patient.Patient verbalizes understanding. 15:11:44 Patient needs reinforcement of post procedure teaching. 15:11:56 Procedure type changed to Cath procedure, Diagnostic procedure, LHC, LHC w/Coronaries, PCI procedure, Coronary Stent, Coronary Stent Initial, Miscellaneous Procedures, Moderate Sedation up to 30 minutes 15:12:54 PERCUTANEOUS ENTRY 19GA needle opened to sterile field. 15:13:32 Procedure and supply charges have been captured, reviewed, submitted and are correct. 15:13:34 Procedure Complication : No complications 15:15:06 Vital chart was stopped 15:15:09 See physician's report for complete and final results. 15:15:14 Report given to Pre/Post Procedure Room. 15:15:17 Patient transfered to Pre/Post Procedure Room with Bed. 15:15:21 Procedure ended. 15:15:21 Full Disclosure recording stopped 15:15:28 End room use (Document Last) 15:15:35 Plavix 600 mg P.O. was administered by Roshan Ayala RN; for antiplatelet therapy; Intervention Summary Intervention Notes Time ActionType Lesion and Equipment Action# Pressure Duration Attributes Used 15:07:44 Place stent Prox RCA INTEGRITY 1 14 00:10 OTW 3.0 X 15 stent ([id number]) Device Usage Item Name Manufacture Quantity Catalog Hospital Part Current Minima l Lot# / Number Charge Number Stock Stock Serial# Code ACIST Acist 1 70946 301170 000475 956750 20 Syringe Medical (97338) Systems Inc Bag Decanter Microtek 1 2002S 553185 43881 977818 5 (2002S) Medical Inc. Tegaderm 4 x 3M 1 1626W 714353 098465 439451 5 4 (1626W) ACIST Acist 1 17067 767676 604470 382785 5 Manifold Medical (44535) Systems Inc ACIST Hand Acist 1 89715 459531 696471 176100 5 Control Medical (63281) Systems Inc Medline Cath Cardinal 1 [id number] 155303 79652 111690 5 Fleet [employer] Holding ([id number]) SHEATH 6FR Terumo 1 [id number] 556298 595198 399635 40 Slender ([id number]) DIAGNOSTIC [facility] Cesar 1 217566 254827 608363 363687 30 WIRE .035 260cm J wire (495489) MBrace Wrist Advanced 1 140-0250-00 187750 28175 438381 5 Support Vascular (615272721) Dynamics NEEDLE Remark Medical 1 X37479 704576 710677 429212 5 21G 4cm Radial (F51612) DIAGNOSTIC Cardinal 1 QW4881 980104 38163 468851 30 Multipack Health 5Fr catheter set (IH6172) SHEATH 5FR Terumo 1 DDH582 578332 997472 226029 40 [place] (NIK719) MULTIPACK JL Cardinal 1 586135 5 4.0 5Fr Health catheter MULTIPACK Cardinal 1 344918 5 3DRC 5Fr Health catheter MULTIPACK Cardinal 1 421178 5 Pigtail 5 Fr Health catheter SHEATH 6FR Terumo 1 GOH307 033700 145012 665207 40 [place] (NYR474) TUBING High Merit 1 [id number] 866532 50783 985580 10 Pressure Medical Extension Tubing (Cota) (LY6385C) BMW 300cm Cramer 1 [id number] 527887 273595 233030 5 [place] 2 Vascular J wire ([id number]) GUIDE 6FR Medtronic 1 [id number] 481573 661101 313557 1 3DRC catheter (NH89HPM) INFLATOR Merit 1 XE4466 832002 209012 122820 15 Merit Medical BasixCompak (YJ1465) GUIDE 6FR Medtronic 1 [id number] 891130 650053 521208 1 3DRC SH catheter ([id number]) INTEGRITY Medtronic 1 [id number] 511805 137074 7 [id number] OTW 3.0 X 15 stent ([id number]) EXOSEAL 6Fr Cardinal 1 EX600 264593 189293 892439 10 (EX600) [facility] PERCUTANEOUS [facility] 1 O40959 561560 697807 5 ENTRY 19GA needle Signature Audit [place]se[place] Stage Time Signature Unsigned Intra-Procedure 09/27/2017 Ene Prado 3:16:43 PM RT(R) Signatures Monitor : Ene Prado Signature : RT Date : Time : [place] [id number] [facility], [facility]901
[~2017-09-27 11:07] MED LIST changes: +BAYER CHEWABLE81 MG PO; +BENAZEPRIL HCL10 MG PO
[2017-09-27 12:01] VITALS: BP 136/74; Ht 157.5 cm; Wt 96.8 kg
[2017-09-27 12:17] LABS: BASOPHILS 0.3 % (0-2); EOSINOPHILS 1.9 % (0-7); HEMATOCRIT 38.6 % (36.0-48.0); HEMOGLOBIN 11.6 g/dL (12-16); IMMATURE GRANULOCYTES 0.1 % (0-5); LYMPHOCYTES 48.3 % (15-50); MCH 23.6 pg (26.0-34.0); MCHC 30.1 g/dL (31.0-37.0); MCV 78.5 fL (80.0-100.0); MEAN PLATELET VOLUME 10.1 fL (7.4-10.4); MONOCYTES 7.2 % (2-11); NEUTROPHILS 42.2 % (40-80); PLATELET COUNT 214 10x3/uL (130-400); RBC 4.92 10x6/uL (4.00-5.40); RDW 16.5 % (11.5-14.5); WBC 7.5 10x3/uL (4.8-10.8)
[2017-09-27 12:23] LABS: ANION GAP 11.7 mmol/L (8-16); CALCIUM 8.9 mg/dL (8.5-10.1); CARBON DIOXIDE 29.6 mmol/L (21.0-32.0); CREATININE - SERUM 0.9 mg/dL (0.6-1.3); POTASSIUM - SERUM 4.3 mmol/L (3.5-5.1)
== END | disposition home or self-care (01) ==
LOC: D.CATH 11:07
PROVIDERS: Internal Medicine Cardiovascular Disease
DX: I20.9 Angina pectoris, unspecified (principal); R06.02 Shortness of breath; I48.91 Unspecified atrial fibrillation; R06.09 Other forms of dyspnea; Z01.812 Encounter for preprocedural laboratory examination

== ENCOUNTER 2017-10-09 17:31 | Observation (INO) | payer MEDICARE, OTHER ==
[~2017-10-09] VITALS: Ht 157.5 cm; Wt 97.3 kg
--- NOTE | ~2017-10-09 | ST ---
PATIENT:FLY ALMAZAN MEDICAL RECORD: [id number] SEX: F [facility] ORDER #: ADMISSION DATE: 10/09/17 AGE OF PATIENT: 77 REFERRING PHYSICIAN: INTERPRETING PHYSICIAN: ARYA MITCHELL MD DATE OF SERVICE: 10/10/2017 PROCEDURE: The patient underwent Lexiscan-directed nuclear stress test. PROCEDURE IN DETAIL: The patient was brought into the nuclear lab and placed in supine position on the nuclear table. The patient had a Lexiscan injection via the IV. The rest injection was done at 1300 hours with 11.4 mCi of sestamibi and the stress was done with 30.2 mCi of sestamibi at 1526 hours on the same day. The patient tolerated the procedure without any difficulty. The patient had a baseline heart rate in the mid 50s. After the injection, the heart rate did increase to 80 and it was in a sinus rhythm pattern. There were no acute ST or T wave changes. The SPECT images revealed no evidence of ischemia. The gated imaging revealed an ejection fraction of 59% without wall motion abnormalities. CONCLUSION: This is a normal stress test without any evidence of inducible ischemia. If the patient's symptoms do not resolve with reasonable explanation, further evaluation may be necessary, but at this point, she is at low risk from prognostic standpoint. TRANSINT:[id number] Voice Confirmation ID: [id number] DOCUMENT ID: [id number] 10/17/2017 Edited to correct date of service, dm. ARYA MITCHELL MD at 1001 CC: [id number] DICTATION DATE: 10/11/17 0817 SLAB INSTALLER: 10/11/17 1235 DIS IN 10/11/17 [place] [address] [place] [address]
--- NOTE | ~2017-10-09 | EC ---
PATIENT:FLY ALMAZAN DATE OF SERVICE: 10/09/17 SEX: F MEDICAL RECORD: [id number] DATE OF : 36 LOCATION:D.M2 D.211 AGE OF PATIENT: 77 ADMISSION DATE: 10/09/17 REFERRING PHYSICIAN: INTERPRETING PHYSICIAN: ARYA MITCHELL MD ECHOCARDIOGRAM REPORT ECHO CHARGES 4 ECHO COMPLETE CLINICAL DIAGNOSIS: CHEST PAIN ECHOCARDIOGRAPHIC MEASUREMENTS (adult normal given) AC root (d.<3.7cm) 3.2 cm LV Septum d (<1.2 cm> 1.5 cm Valve Excursion 1.6 cm LV Septum (systole) 1.9 cm Left Atria (s.<4.0cm> 4.3 cm LVPW d(<1.2cm) 1.5 cm RV (d.<2.3cm) 36.0 cm LVPW (sytole) 1.6 cm LV diastole(<5.6CM) 5.0 cm MV E-F(>70mm/sec) cm LV systole 2.6 cm LVOT Diameter 1.5 cm MV exc.(>10mm) 1.5 cm Est.ejection fraction (50-75%) % Pericardial Effusion N DOPPLER: LVIT cm/sec A 91.0 cm/sec E 96.0 cm/sec LA cm/sec RVSP 50 mmHg LVOT 96 cm/sec AOP1/2T m/s Asc. Ao 165 cm/sec RVOT 103 cm/sec RA cm/sec PA 147 cm/sec AV Gradient Peak 10.84mmHg AV Mean 6.11 mmHg AV Area 2.0 cm MV Gradient Peak 6.90 mmHg MV Mean 2.38 mmHg MV Area cm COMMENTS: Bulbs Farmworker: Jessica ARMENTA Installer Interior Assemblies: 4 Dr. Mitchell TAPE# PACS DATE OF SERVICE: 10/10/2017 PROCEDURE: Transthoracic echocardiogram. FINDINGS: 1. The patient has moderate concentric left ventricular hypertrophy, hyperdynamic LV systolic function. Ejection fraction 65%. 2. The right ventricle is also dilated with right ventricular hypertrophy. Inflow characteristics are consistent with diastolic dysfunction, but also consistent with possible elevation of the left ventricular end-diastolic ECHOCARDIOGRAM REPORT [id number] FLY ALMAZAN pressure. 3. The aortic valve is normal. 4. The mitral valve is structurally normal with trace to mild mitral regurgitation. 5. The tricuspid valve is shown to have moderate tricuspid regurgitation, RVSP of 55 mmHg. Moderate pulmonary hypertension. 6. Interatrial septum is thinned and bowed. There does not appear to be a septal defect; however, there is indication of elevations of left atrial pressure. CONCLUSION: The patient has evidence of left ventricular hypertrophy with possible increase in left ventricular end-diastolic pressures. The patient has preserved LV systolic function with moderate pulmonary hypertension. TRANSINT:[id number] Voice Confirmation ID: [id number] DOCUMENT ID: [id number] 10/17/2017 Edited to correct date of service, dm. ARYA MITCHELL MD at 1001 CC: [id number] DICTATION DATE: 10/11/17 0833 RAG PRODUCTION WORKER: 10/11/17 1053 DIS IN 10/11/17 [facility] [address] [place] [address]
[2017-10-09 18:32] LABS: BASOPHILS 0.4 % (0-2); EOSINOPHILS 2.5 % (0-7); HEMATOCRIT 36.8 % (36.0-48.0); IMMATURE GRANULOCYTES 0.4 % (0-5); LYMPHOCYTES 44.2 % (15-50); MCH 23.4 pg (26.0-34.0); MCHC 29.9 g/dL (31.0-37.0); MCV 78.3 fL (80.0-100.0); MEAN PLATELET VOLUME 10.2 fL (7.4-10.4); MONOCYTES 8.7 % (2-11); NEUTROPHILS 43.8 % (40-80); PLATELET COUNT 236 10x3/uL (130-400); RDW 16.8 % (11.5-14.5); WBC 7.6 10x3/uL (4.8-10.8)
[2017-10-09 18:59] LABS: ALBUMIN 3.3 g/dL (3.4-5.0); ALKALINE PHOSPHATASE 52 U/L (46-116); ALT (SGPT) 21 U/L (10-68); BILIRUBIN - TOTAL 0.15 mg/dL (0.2-1.3); CALC OSMOLALITY 283 mosm/kg (275-300); CALCIUM 8.7 mg/dL (8.5-10.1); CARBON DIOXIDE 26.3 mmol/L (21.0-32.0); CHLORIDE - SERUM 103 mmol/L (98-107); CREATININE - SERUM 0.9 mg/dL (0.6-1.3); GLUCOSE 188 mg/dL (74-106); POTASSIUM - SERUM 4.1 mmol/L (3.5-5.1); PROTEIN - SERUM 6.7 g/dL (6.4-8.2); SODIUM 137 mmol/L (136-145); UREA NITROGEN 26 mg/dL (7-18); eGFR NON AFRICAN AMERICAN 64 mL/min (90-120)
[2017-10-09 19:15] LABS: CHOL - HDL RATIO 3.9 ratio (2.3-4.1); CHOLESTEROL, TOTAL 181 mg/dL (0-200); CKMB 1.7 U/L (0.0-3.6); CREATINE KINASE 51 UL (21-215); HDL CHOLESTEROL 46 mg/dL (32-96); LDL CHOLESTEROL 108 mg/dL (0-100); LDL-HDL RATIO 2.3 ratio (1.5-3.5); TRIGLYCERIDE 135 mg/dL (30-200)
[2017-10-09 19:22] LABS: TROPONIN-I < 0.017 ng/mL (0.000-0.060)
[2017-10-10 01:48] LABS: CKMB 1.3 U/L (0.0-3.6); CREATINE KINASE 40 UL (21-215); TROPONIN-I < 0.017 ng/mL (0.000-0.060)
[2017-10-10 06:25] LABS: BASOPHILS 0.5 % (0-2); EOSINOPHILS 1.9 % (0-7); HEMATOCRIT 37.3 % (36.0-48.0); IMMATURE GRANULOCYTES 0.4 % (0-5); LYMPHOCYTES 42.2 % (15-50); MCH 23.3 pg (26.0-34.0); MCHC 29.5 g/dL (31.0-37.0); MEAN PLATELET VOLUME 10.2 fL (7.4-10.4); MONOCYTES 6.3 % (2-11); NEUTROPHILS 48.7 % (40-80); PLATELET COUNT 250 10x3/uL (130-400); RBC 4.72 10x6/uL (4.00-5.40); WBC 8.1 10x3/uL (4.8-10.8)
[2017-10-10 06:57] LABS: CALC OSMOLALITY 281 mosm/kg (275-300); CALCIUM 8.9 mg/dL (8.5-10.1); CARBON DIOXIDE 28.1 mmol/L (21.0-32.0); CHLORIDE - SERUM 102 mmol/L (98-107); CKMB 1.4 U/L (0.0-3.6); CREATINE KINASE 41 UL (21-215); CREATININE - SERUM 0.8 mg/dL (0.6-1.3); GLUCOSE 158 mg/dL (74-106); POTASSIUM - SERUM 4.3 mmol/L (3.5-5.1); SODIUM 138 mmol/L (136-145); UREA NITROGEN 22 mg/dL (7-18); eGFR NON AFRICAN AMERICAN 73 mL/min (90-120)
[2017-10-10 06:59] LABS: TROPONIN-I < 0.017 ng/mL (0.000-0.060)
[2017-10-10 14:26] LABS: CKMB 1.7 U/L (0.0-3.6); CREATINE KINASE 58 UL (21-215); TROPONIN-I < 0.017 ng/mL (0.000-0.060)
[2017-10-10 18:40] LABS: CKMB 1.4 U/L (0.0-3.6); CREATINE KINASE 68 UL (21-215)
[2017-10-10 18:46] LABS: TROPONIN-I < 0.017 ng/mL (0.000-0.060)
[2017-10-10 20:00] VITALS: BP 115/65
[2017-10-10 23:14] LABS: CKMB 1.6 U/L (0.0-3.6); CREATINE KINASE 52 UL (21-215)
[2017-10-10 23:16] LABS: TROPONIN-I < 0.017 ng/mL (0.000-0.060)
[2017-10-11 04:00] VITALS: BP 123/34
[2017-10-11 05:03] VITALS: BP 115/65; BMI 39.2
[2017-10-11 06:14] LABS: ALBUMIN 2.9 g/dL (3.4-5.0); ALKALINE PHOSPHATASE 43 U/L (46-116); ALT (SGPT) 22 U/L (10-68); CALC OSMOLALITY 283 mosm/kg (275-300); CARBON DIOXIDE 25.8 mmol/L (21.0-32.0); CHLORIDE - SERUM 104 mmol/L (98-107); CKMB 1.8 U/L (0.0-3.6); CREATINE KINASE 55 UL (21-215); CREATININE - SERUM 0.6 mg/dL (0.6-1.3); GLUCOSE 148 mg/dL (74-106); POTASSIUM - SERUM 4.2 mmol/L (3.5-5.1); SODIUM 139 mmol/L (136-145); TROPONIN-I < 0.017 ng/mL (0.000-0.060); UREA NITROGEN 21 mg/dL (7-18); eGFR NON AFRICAN AMERICAN > 90 mL/min (90-120)
[2017-10-11 06:27] LABS: BASOPHILS 0.5 % (0-2); EOSINOPHILS 2.3 % (0-7); HEMATOCRIT 34.9 % (36.0-48.0); HEMOGLOBIN 10.3 g/dL (12-16); IMMATURE GRANULOCYTES 0.1 % (0-5); LYMPHOCYTES 45.4 % (15-50); MCH 23.3 pg (26.0-34.0); MCHC 29.5 g/dL (31.0-37.0); MCV 78.8 fL (80.0-100.0); MEAN PLATELET VOLUME 10.6 fL (7.4-10.4); MONOCYTES 7.6 % (2-11); NEUTROPHILS 44.1 % (40-80); PLATELET COUNT 258 10x3/uL (130-400); RBC 4.43 10x6/uL (4.00-5.40); RDW 16.8 % (11.5-14.5); WBC 8.5 10x3/uL (4.8-10.8)
[2017-10-11 08:00] VITALS: BP 194/68
[2017-10-11 09:59] VITALS: Ht 157.5 cm; Wt 97.3 kg
[2017-10-11 12:34] VITALS: BP 136/73
[2017-10-11] MEDS ORDERED: COREG12.5 MG PO (12:43)
[2017-10-11] MEDS ORDERED: CATAPRES0.1 MG PO (12:45)
[2017-10-11] MEDS ORDERED: FLORAJEN3 CAPS460 MG PO (12:46)
[2017-10-11] MEDS ORDERED: LEVAQUIN750 MG PO (12:46)
== END 2017-10-11 14:14 | disposition home or self-care (01) ==
LOC: D.ER 17:31 → D.M2 23:58 → OBSVTIME 23:58 → D.SDCHOLD 23:58 → D.EDHOLD 10-10 12:05 → D.M2 10-10 17:04
PROVIDERS: Emergency Medicine; Family Medicine
DX: J18.9 Pneumonia, unspecified organism (principal); J44.0 Chronic obstructive pulmonary disease with (acute) lower respiratory infection; Z87.891 Personal history of nicotine dependence; K21.9 Gastro-esophageal reflux disease without esophagitis; E78.5 Hyperlipidemia, unspecified; I16.0 Hypertensive urgency; I11.0 Hypertensive heart disease with heart failure; I50.30 Unspecified diastolic (congestive) heart failure; E11.9 Type 2 diabetes mellitus without complications; I25.10 Atherosclerotic heart disease of native coronary artery without angina pectoris; Z95.5 Presence of coronary angioplasty implant and graft

== ENCOUNTER → 2018-01-16 13:03 | Outpatient (CLI) | payer MEDICARE, OTHER ==
[2017-10-11 09:59] VITALS: BMI 39.2
[~2018-01-16 13:03] MED LIST changes: +BRILINTA90 MG PO; +CATAPRES0.1 MG PO; +COREG12.5 MG PO; +FLORAJEN3 CAPS460 MG PO; +ISOSORBIDE MONO30 M1 PO; +LEVAQUIN750 MG PO; +LIPITOR40 MG PO; +NITROSTAT0.4 MG SL
== END | disposition home or self-care (01) ==
LOC: D.US 13:03
DX: I65.23 Occlusion and stenosis of bilateral carotid arteries (principal)

== ENCOUNTER 2018-01-18 12:36 | Inpatient (IN) | payer MEDICARE, OTHER ==
[~2018-01-18] VITALS: Ht 157.5 cm; Wt 96.6 kg
--- NOTE | ~2018-01-18 | HP ---
PATIENT: FLY ALMAZAN MEDICAL RECORD: [id number] ACCOUNT: [id number] LOCATION:[address] : 38 ADMISSION DATE: 01/18/18 HISTORY AND PHYSICAL EXAMINATION FLY Wallace (77yo, F) ID# [id number]. Date/Time01/18/2018 11:[id number] Dept.NP_[facility] ClinicProviderEDBAKARI HYDE MDInsuranceMed Primary: [place] ([place]) Insurance # : [id number] PCP : LEAH AGUIRRE Referring Provider Name : LEAH AGUIRRE Employer Name : RETIRED Med Secondary: FOR LIFE ( - MEDICARE SUPPLEMENT) Insurance # : [id number] PCP : LEAH AGUIRRE Referring Provider Name : LEAH AGUIRRE Employer Name : RETIRED Prescription: ESI1 - Member is eligible. Chief Complaint Followup: Carotid artery stenosis S/P RCEA 07/10/16 S/P LCEA 09/23/16 1 YEAR W DOPPLER Patient's Care Team Primary Care Provider (): LEAH AGUIRRE: [address] [address], , Referring Provider (): LEAH AGUIRRE: [address] [address], , Patient's Pharmacies [id number] ([place]): [phone] [facility] [place] [phone], , [facility] ([place]): [phone] [place] [address], , Vitals BP:132/60 sitting R arm 01/18/2018 11:26 amHR:82/REG 01/18/2018 11:27 amWt:213 lbs 01/18/2018 11:27 amAllergies Reviewed Allergies CALAMINE: Other (Severe)CYMBALTA: Other (Severe)DICLOFENACREGLANSome allergies listed in Documents: #[id number], #[id number], #[id number] could not be added to this patient's chart. Please review these documents and add these allergies to the patient's chart manually as needed.Medications Reviewed Medications ALPRAZolam 0.25 mg /05/16 filledMEDCOamLODIPine 10 mg /21/17 filledMEDCOamlodipine 10 mg-benazepril 20 mg capsule Take 1 capsule(s) every day by oral route.09/20/16 filledMEDCOamoxicillin 875 mg-potassium clavulanate 125 mg jgsqek90/10/18 filledMEDCOatorvastatin 40 mg ttywey08/11/18 filledMEDCObenazepril 10 mg eiygpk82/01/18 filledMEDCObenazepril 5 mg hgvisr35/24/17 filledMEDCObenzonatate 100 mg zpndezy44/02/17 filledMEDCOcarvedilol 12.5 mg drodix98/07/18 filledMEDCOCeleBREX 200mg daily12/06/11 enteredHeather Farnamcelecoxib 200 mg iafqfhb73/07/17 filledMEDCOcloNIDine HCl 0.1 mg jtobth78/07/18 filledMEDCOclopidogrel 75 mg tablet Take 1 tablet(s) every day by oral route.01/15/18 filledMEDCOdiclofenac sodium 75 mg tablet,delayed owuwdtq78/22/15 filledMEDCOdoxycycline hyclate 100 mg sghoter67/03/17 filledMEDCOescitalopram 10 mg hqafel42/17/16 filledMEDCOfluconazole 150 mg vzufua35/15/17 filledMEDCOfurosemide HISTORY AND PHYSICAL [id number] FLY ALMAZAN 40mg daily07/18/16 enteredCindy Brownfurosemide 40 mg mdbbib47/26/18 filledMEDCOgabapentin 300 mg ygjfnzb98/23/18 filledMEDCOHealthPro Test Aawpzg97/02/16 filledMEDCOHYDROcodone 10 mg-acetaminophen 325 mg tablet Take 1 tablet(s) every 4 hours by oral route.01/04/18 filledMEDCOisosorbide mononitrate ER 30 mg tablet,extended release 24 hr01/15/18 filledMEDCOJardiance 25 mg tablet Take 1 tablet(s) every day by oral route.11/28/17 filledMEDCOlevoFLOXacin 500 mg /23/16 filledMEDCOlevoFLOXacin 750 mg toqtdc22/07/18 filledMEDCOLORazepam 1 mg cuglgg21/22/17 filledMEDCOmeclizine 25 mg /10/18 filledMEDCOmeloxicam 7.5 mg usipxz35/28/16 filledMEDCOmetFORMIN 500 mg tablet Take 1 tablet(s) every day by oral route.11/02/17 filledMEDCOmethylPREDNISolone 4 mg tablets in a dose pack11/07/16 filledMEDCOnitroglycerin 0.4 mg sublingual lidbzu13/11/18 filledMEDCONystop 100,000 unit/gram topical vzlwzy98/15/17 filledMEDCOoxyCODONE 15 mg /08/17 filledMEDCOpantoprazole 40 mg tablet,delayed xagpvgi96/26/18 filledMEDCOpredniSONE 5 mg sgbkza13/23/18 filledMEDCOProAir RespiClick 90 mcg/actuation breath /02/17 filledMEDCOpromethazine-DM 6.25 mg-15 mg/5 mL syrup11/07/16 filledMEDCOrOPINIRole 3 tabs at pvzzuug46/12/16 enteredCindy BrownrOPINIRole 0.5 mg zreczx38/06/17 filledMEDCOrOPINIRole 1 mg /31/18 filledMEDCOsotalol 80 mg waxrdk73/31/18 filledMEDCOTanzeum 50 mg/0.5 mL subcutaneous pen fmxyxlzb14/31/16 filledMEDCOtraMADol 50 mg ahfwvp15/14/17 filledMEDCOTrulicity 0.75 mg/0.5 mL subcutaneous pen llaougyo34/21/16 filledMEDCOVentolin HFA 90 mcg/actuation aerosol zbjpsbu44/26/16 filledMEDCOVaccines Reviewed Vaccines Some vaccines listed in Documents: #[id number], #[id number], #[id number] could not be added to this patient's chart. Please review these documents and add these vaccines to the patient's chart manually as needed. Problems Reviewed Problems Postoperative visit - Onset: 10/13/2016 Incisional hernia Low back pain Knee pain Sciatic nerve lesion Carotid artery stenosis, Bilateral - R<L Family History Reviewed Family History Non-contributory.Father- Malignant neoplastic diseaseMother- Malignant neoplastic diseaseUnspecified Relation- Malignant neoplastic diseaseSocial History Reviewed Social History Cardiology Smoking Status: Never smoker High Cholesterol: Y High blood pressure: Y Diabetes: Y Alcohol intake: None Occupation: retired Marital status: Is blood transfusion acceptable in an emergency?: Y Surgical History Reviewed Surgical History HISTORY AND PHYSICAL [id number] FLY ALMAZAN Carotid Endarterectomy - 09/23/2016 - Left Carotid Endarterectomy - 07/20/2016 - right side Laparoscopic incisional hernia repair - 07/18/2014 Total knee arthroplasty - 06/04/2012 Neuroplasty, major peripheral nerve, leg - 01/16/2012 Other - 2010 - bursecomy Other - 2009 - cataracts Other - 1997 - nose Other - 1991 - gall bladder Other - 1966 - hysterectomy Other - 1954 - appendix Other - 1947 - tonsils 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 HPI Angina/Chest Pain Reported by patient. Location: chest; radiates to the left arm Quality: pressure; aching Severity: moderate; pain level 7/10 Duration: lasts minutes; started 4weeks ago Onset/Timing: multiple times per day; abrupt onset without warning Context: exertional; at rest Alleviating Factors: relieved with NTG Aggravating Factors: worse in a supine position Cerebral Vascular Disease Reported by patient. Quality: weakness; tunnel vision; dizziness Duration: started 4weeks ago Onset/Timing: intermittent Context: "WHEN I STAND UP" Aggravating Factors: position change; activity Associated Symptoms: no headache; no nausea; no vomiting; no tinnitus; no difficulty speaking; no lethargy; no fever; no chills; no syncope; no loss of consciousness carotid artery disease ccoronary Artery disease ROS Patient reports exercise intolerance but reports no fever, no night sweats, no significant weight gain, and no significant weight loss. She reports dry eyes but reports no irritation and no vision change. She reports nose/sinus problems but HISTORY AND PHYSICAL [id number] FLY ALMAZAN reports no frequent nosebleeds. She reports chest pain on exertion, arm pain on exertion, shortness of breath when walking, and light-headed on standing but reports no shortness of breath when lying down, no palpitations, and no known heart murmur. She reports shortness of breath but reports no cough, no wheezing, and no coughing up blood. She reports frequent diarrhea and nausea but reports no abdominal pain, no vomiting, normal appetite, not vomiting blood, and no constipation. She reports muscle weakness, arthralgias/joint pain, and back pain but reports no muscle aches and no swelling in the extremities. She reports restless legs but reports no loss of consciousness, no weakness, no numbness, no seizures, no dizziness, and no headaches. She reports easy bruising but re ports no swollen glands. She reports no difficulty hearing and no ear pain. She reports no sore throat, no bleeding gums, no snoring, no dry mouth, no mouth ulcers, no oral abnormalities, and no teeth problems. She reports no incontinence, no difficulty u r inating, no hematuria, and no increased frequency. She reports no abnormal mole, no jaundice, and no rashes. She reports no depression, no sleep disturbances, feeling safe in relationship, and no alcohol abuse. She reports no fatigue. She reports no runny nose, no sinus pressure, no itching, no hives, and no frequent sneezing. ROS as noted in the HPI Physical Exam Patient is a 77-year-old female. Constitutional: General Appearance healthy-appearing, well developed, and overweight. Level of Distress NAD. Ambulation ambulation with cane. Ears, Nose, Throat: Ears grossly normal hearing. Nose no external nose lesion. Lips, Teeth, and Gums no mouth or lip ulcers. Oropharynx: moist mucous membranes. Cardiovascular: Apical Impulse not displaced or no thrill. Heart Auscultation normal s1 and s2, no rubs or gallops, and RRR and ANGELO. Neck Vessels bilateral carotid bruits. Arterial Pulses no abdominal aorta bruits, femoral bruits, or popliteal bruits; popliteal diminished (bilaterally) and dorsalis pedis diminished (bilaterally); and 2+ bilateral, carotid 2+ bilateral, and femoral 2+ bilateral. Edema edema and varicosities. Lungs: Repiratory Effort no dyspnea. Percussion no hyperresonance or dullness or flatness. Auscultation no wheezing, rhonchi, or rales / crack les and breathing sounds normal, good air movement, and CTA except as noted. Abdomen: Bowl Sounds normal. Inspection and Palpation no tenderness, guarding, masses, or rebound tenderness and soft and non-distended. Liver non-tender and no hepatomegaly. Spleen non-tender and no splenomegaly. Hernia none palpable. Musculoskeletal System: Gait And Stance normal gait and stance. Digits and Nails normal nails and no cyanosis. Joints, Bones, and Muscles limited ROM and abnormal strength. Neurologic: Cranial Nerves grossly intact. Reflexes DTRs 2+ bilaterally throughout. Sensation grossly intact. Lymph Nodes: Lymph Nodes no cervical LAD, supraclavicular LAD, axillary LAD, or inguinal LAD. Eyes: Lids and Conjunctivae no discharge or pallor and non-injected. Pupils PERRLA. Cornea grossly intact. EOM EOMI. Lens clear. Sclera non-icteric. HISTORY AND PHYSICAL [id number] FLY ALMAZAN Neck: Neck no masses or enlarged lymph nodes and supple, trachea midline, and carotid bruits (bilaterally). Thyroid no enlargement or nodules and non-tender. Skin: Inspection and Palpation no rash, lesions, ulcers, jaundice, or abnormal nevi. progressing well incision well healed Assessment / Plan angina Carotid artery disease 1. Carotid artery stenosis - Bilateral I65.23: Occlusion and stenosis of bilateral carotid arteries CAROTID STENOSIS: CARE INSTRUCTIONS Discussion Notes carotid Doppler study is stable postoperatively however there are elevated velocities Repeat carotid Doppler study in 6 months she may need a CT angiogram we'll consult Dr. 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 [address] [place] [address]
--- NOTE | ~2018-01-18 | EC ---
PATIENT:FLY ALMAZAN DATE OF SERVICE: 01/18/18 SEX: F MEDICAL RECORD: [id number] DATE OF : 36 LOCATION:D.M2 D.213 AGE OF PATIENT: 77 ADMISSION DATE: 01/18/18 REFERRING PHYSICIAN: INTERPRETING PHYSICIAN: ARYA MITCHELL MD ECHOCARDIOGRAM REPORT ECHO CHARGES 4 ECHO COMPLETE Date: 01/19 CLINICAL DIAGNOSIS: ANGINA ECHOCARDIOGRAPHIC MEASUREMENTS (adult normal given) AC root (d.<3.7cm) 3.1 cm LV Septum d (<1.2 cm> 1.1 cm Valve Excursion 1.1 cm LV Septum (systole) 1.5 cm Left Atria (s.<4.0cm> 4.4 cm LVPW d(<1.2cm) 1.3 cm RV (d.<2.3cm) 2.9 cm LVPW (sytole) 2.1 cm LV diastole(<5.6CM) 5.9 cm MV E-F(>70mm/sec) cm LV systole 2.9 cm LVOT Diameter 1.6 cm MV exc.(>10mm) cm Est.ejection fraction (50-75%) % DOPPLER: LVIT cm/sec A 92.0 cm/sec E 135 cm/sec LA cm/sec RVSP 45.0 mmHg LVOT 161 cm/sec AOP1/2T m/s Asc. Ao 225 cm/sec RVOT 67.0 cm/sec RA cm/sec PA 130 cm/sec AV Gradient Peak 20.2 mmHg AV Mean 11.0 mmHg AV Area 1.4 cm MV Gradient Peak 8.0 mmHg MV Mean 2.9 mmHg MV Area cm COMMENTS: Glass Production Machine Operator: Kizzy PATTENOE Brand Activation Manager: Portia Mitchell TAPE# PACS Pericardial Effusion N DATE OF SERVICE: PROCEDURE: Transthoracic echocardiogram. FINDINGS: 1. Left ventricle has evidence of concentric left ventricular hypertrophy. Inflow characteristics consistent with diastolic dysfunction. Ejection fraction is preserved at 60% to 65%. There is mild left ventricular enlargement. 2. The left atrium is normal size, just mildly dilated. 3. The mitral valve has mild mitral annular calcification. Mitral leaflets ECHOCARDIOGRAM REPORT [id number] FLY ALMAZAN normal shape and structure. There is mild mitral regurgitation. 4. The aortic valve is sclerotic without evidence of stenosis. 5. Tricuspid valve has mild tricuspid regurgitation, normal structure with an RVSP of 45 mmHg. 6. The pericardium is normal. 7. The right ventricle is mildly enlarged. There is mild right ventricular hypertrophy. 8. The right atrium is mildly dilated. 9. The pulmonic valve is grossly normal. CONCLUSIONS: The patient has evidence of hypertensive heart disease. There is no obvious regional wall motion abnormalities and preserved LV systolic function. 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
--- NOTE | ~2018-01-18 | HEMODYNAMI ---
PATIENT:FLY ALMAZAN MEDICAL RECORD: [id number] : 36 [id number] ADMISSION DATE: 01/18/18 Generatedon:01/19/201813:53 Patient name: FLY ALMAZAN Patient #: [id number] SSN: D OB: 1940 Date of study: 01/19/2018 Page: Of Hemodynamic Procedure Report Patient Data Patient Demographics Procedure consent was obtained First Name: FLY Gender: Female Last Name: NORAH : 1940 [facility] Initial: J Age: 77 year(s) Patient #: [id number] Race: Unknown Additional ID: [id number] Contact details Address: [address] [place] [address] State: [place] City: [place] Zip code: [address] Past Medical History Allergies Allergen Reaction Date Comments Reported Other allergy 09/27/2017 ARTHROTEC, CYMBALTA Admission Admission Data Admission Date: 01/18/2018 Admission Time: 12:36 Admit Source: Other Room #: D.2136 Lab Results Lab Result Date: 01/19/2018 Lab Result Time: 0:00 Biochemistry Name Units Result Min Max BUN mg/dl 20 --(----)*- 7 18 Creatinine mg/dl 0.9 --(-*--)-- 0.6 1.3 CBC Name Units Result Min Max Hemoglobin g/dl 11.1 *-(----)-- 13.5 17.5 Procedure Procedure Types Cath Procedure Diagnostic Procedure LHC LHC w/Coronaries Procedure Description Procedure Date Procedure Date: 01/19/2018 Procedure Start Time: 13:08 Procedure End Time: 13:42 Procedure Staff Name Function Garrett Cota MD Performing Physician Eliud Romeo RN Nurse Ene Prado RT Scrub Tammi Douglas RT Monitor Procedure Data Cath Procedure Fluoroscopy Diagnostic fluoroscopy Total fluoroscopy Time: time: 10.3 min 10.3 min Diagnostic fluoroscopy Total fluoroscopy dose: dose: 1100 mGy 1100 mGy Contrast Material Contrast Material Type Amount (ml) Isovue 300 133 Entry Location Entry Primary Successful Side Size Upsize Upsize Entry Closure Succes sful Closure Location (Fr) 1 (Fr) 2 (Fr) Remarks Device Remarks Femoral Right 5 Fr 6 Fr Exoseal artery Short Estimated blood loss: 5 ml Diagnostic catheters Device Type Used For End Catheter Placement MULTIPACK JL 4.0 5Fr Left Coronary catheter Angiography MULTIPACK 3DRC 5Fr Right Coronary catheter Angiography MULTIPACK Pigtail 5 Fr LV Angiography catheter Procedure Complications No complications Procedure Medications Medication Administration Route Dosage Oxygen etCO2 Nasal cannula 2 l/min Heparin Flush Bag added to field 2 bags (1000units/500ml NS) 0.9% NaCl I.V. 100 ml/hr Fentanyl I.V. 50 mcg Versed I.V. 1 mg Fentanyl I.V. 50 mcg Versed I.V. 1 mg Heparin Bolus I.V. 9500 units Nitroglycerin IC/IA I.C. 100 mcg Hemodynamics Rest Heart Rate: 72 (bpm) Pressure Samples Time Site Value (mmHg) Purpose Heart Use Rate(bpm) 13:16 LV 171/4,2 Snapshot 62 13:17 AO 169/62(101) Pullback 53 13:17 LV 202/7,42 Pullback 53 Gradients Valve Time Site 1 Site 2 Mean SEP/DFP Peak To Heart Use (mmHg) (sec/min) Peak Rate (mmHg) (bpm) Aortic 13:17 LV AO 12 19 33 53 202/7,42 169/62(101) Calculations Valve P-P Mean Valve Index Valve Source Name Gradient Area Flow (cm2) Aortic 33 12 33 12 Snapshots Pre Cath Intra NCS Post Cath Vital Signs Time Heart Resp SPO2 etCO2 NIBP (mmHg) Rhythm Pain Sedation Rate (ipm) (%) (mmHg) Status Level (bpm) 13:01:39 68 16 98 0 Measuring NSR 0 (11) 10(A) , No pain 13:03:42 72 17 97 0 Time NSR 0 (11) 10(A) Exceeded , No pain 13:08:25 67 17 84 0 Measuring NSR 0 (11) 10(A) , No pain 13:09:02 67 17 90 0 193/86(153) NSR 0 (11) 10(A) , No pain 13:14:19 65 17 95 0 169/81(134) NSR 0 (11) 9(A) , No pain 13:19:45 67 16 94 0 182/84(137) NSR 0 (11) 9(A) , No pain 13:25:11 60 16 96 0 169/64(133) NSR 0 (11) 9(A) , No pain 13:30:36 64 17 97 0 182/72(131) NSR 0 (11) 9(A) , No pain 13:36:08 59 17 97 11.9 198/91(154) NSR 0 (11) 9(A) , No pain 13:50:12 70 25 0 Time NSR 0 (11) 9(A) Exceeded , No pain Medications Time Medication Route Dose Verified Delivered Reason Notes Effectiveness by by 13:00:44 Oxygen etCO2 2 Garrett Eliud Per physician Nasal l/min Cipriano Romeo RN cannula 13:00:52 Heparin Flush added 2 Garrett Eliud used for Bag to bags Cipriano Romeo RN procedure (1000units/500ml field NS) 13:01:01 0.9% NaCl I.V. 100 Garrett Eliud Per physician ml/hr Cipriano Romeo RN 13:09:31 Fentanyl I.V. 50 Garrett Eliud for sedation mcg Cipriano Romeo RN 13:09:38 Versed I.V. 1 mg Garrett Eliud for sedation Cipriano Romeo RN 13:14:11 Fentanyl I.V. 50 Garrett Eliud for sedation mcg Cipriano Romeo RN 13:14:14 Versed I.V. 1 mg Garrett Eliud for sedation Cipriano Romeo RN 13:22:01 Heparin Bolus I.V. 9500 Garrett Eliud for units Cipriano Romeo RN anticoagulation 13:39:37 Nitroglycerin I.C. 100 Garrett Eliud for IC/IA mcg Cipriano Romeo RN vasodilation Procedure Log Time Note 12:16:09 Informed consent obtained and on chart 12:16:13 Admit Source: Other 12:16:42 Diagnostic Cath status Elective 12:16:44 Time tracking: Regular hours (M-F 7:00 - 5:00) 12:16:47 Plan of Care:Hemodynamics will remain stable., Cardiac rhythm will remain stable., Comfort level will be maintained., Respiratory function will remain adequate., Patient/ family verbilizes understanding of procedure., Procedure tolerated without complication., Recovers from procedure without complications.. 12:17:30 H&P Date Dictated: 01/18/2018 Within 30 days and on chart.. 12:24:38 Lab Result : BUN 20 mg/dl 12:24:38 Lab Result : Creatinine 0.9 mg/dl 12:24:38 Lab Result : Hemoglobin 11.1 g/dl 12:24:58 H&P Date Dictated: 01/18/2018 Within 30 days and on chart.. 12:30:27 Ene Prado RT(R) sent for patient. Start room use. 12:40:04 Patient received from Pre/Post Procedure Room to CCL 1 Alert and oriented. Tansferred to table in Supine position. 12:40:06 Warm blankets applied, and jose hugger turned on for patient comfort. 12:40:06 Correct patient and procedure confirmed by team. 12:40:07 ECG and BP/O2 sat monitors applied to patient. 12:49:12 Procedure type changed to Cath procedure, Diagnostic procedure, LHC, LHC w/Coronaries 13:00:30 Vital chart was started 13:00:44 Oxygen 2 l/min etCO2 Nasal cannula was administered by Eliud Romeo RN; Per physician; 13:00:52 Heparin Flush Bag (1000units/500ml NS) 2 bags added to field was administered by Eliud Romeo RN; used for procedure; 13:01:01 0.9% NaCl 100 ml/hr I.V. was administered by Eliud Romeo RN; Per physician; 13:03:11 Baseline sample Acquired. 13:03:16 Rhythm: sinus rhythm 13:03:18 Full Disclosure recording started 13:03:20 Pre-procedure instructions explained to patient. 13:03:20 Pre-op teaching completed and patient verbalized understanding. 13:03:21 Family in waiting room. 13:03:23 Patient NPO since Midnight. 13:03:24 Is the patient allergic to Iodine/contrast media? No. 13:03:25 Was the patient premedicated? No 13:03:26 Is patient on blood thinner?Yes 13:03:29 ACC The patient was administered the following blood thiners within the last 24 hours: ACCPlavix 13:05:10 Patient diabetic? Yes. 13:05:12 If diabetic: On Metformin? Yes 13:05:19 If on Metformin: Last Dose? 01/18/2018 13:05:23 Previous problem with sedation/anesthesia? No ? 13:05:24 Snore? Yes 13:05:30 Sleep apnea? Yes 13:05:31 Deviated septum? No 13:05:45 Opens mouth fully? Yes 13:05:45 Sticks out tongue? Yes 13:05:49 Airway obstruction? Yes copd 13:05:53 Dentures? No ? 13:05:58 Pre procedure: right dorsailis pedis pulse 1+ Palpable, but thready & weak; easily obliterated 13:06:00 Pre procedure: left dorsailis pedis pulse 1+ Palpable, but thready & weak; easily obliterated 13:06:02 Patient pain scale 0/10 ?. 13:06:41 [facility] 20 gauge IV catheter with 0.9% NaCl at KVO. 13:06:45 Lab results completed and on chart. 13:06:52 Right groin area was prepped with chlora-prep and draped in sterile fashion 13:06:53 Alarms reviewed by R. N. 13:06:53 Sharps counted by scrub and verified by R.N. 13:06:56 Physician arrived 13:06:56 --------ALL STOP TIME OUT------ 13:06:56 Final Timeout: patient, procedure, and site verified with staff and physician. All members of the team are in agreement. 13:06:58 Right groin site verified by team. 13:07:01 Physical assessment completed. ASA score P 2 - A patient with mild systemic disease as per Garrett Cota MD. 13:07:04 Sedation plan: IV Moderate Sedation Medication:Versed, Fentanyl 13:07:09 Use device set Femoral Dx 13:07:10 ACIST Syringe (25884) opened to sterile field. 13:07:10 Bag Decanter (2002) opened to sterile field. 13:07:11 Medline Cath Pack ([id number]) opened to sterile field. 13:07:11 DIAGNOSTIC WIRE .035 260cm J wire (792051) opened to sterile field. 13:07:13 ACIST Hand Control (95236) opened to sterile field. 13:07:13 ACIST Manifold (33035) opened to sterile field. 13:07:14 DIAGNOSTIC Multipack 5Fr catheter set (GA6424) opened to sterile field. 13:07:15 Tegaderm 4 x 4 (1626W) opened to sterile field. 13:07:15 Vital chart was stopped 13:07:16 SHEATH Prelude 5Fr 0.035 (MDD-0I-41-035) opened to sterile field. 13:07:16 Vital chart was started 13:08:49 Procedure started. 13:08:57 Local anesthetic to right femoral artery with Lidocaine 1% by Garrett Cota MD.INITIAL ACCESS ONLY 13:09:07 A 5 Fr sheath was inserted into the Right Femoral artery 13:09:31 Fentanyl 50 mcg I.V. was administered by Eliud Romeo RN; for sedation; 13:09:38 Versed 1 mg I.V. was administered by Eliud Romeo RN; for sedation; 13:14:11 Fentanyl 50 mcg I.V. was administered by Eliud Romeo RN; for sedation; 13:14:14 Versed 1 mg I.V. was administered by Eliud Romeo RN; for sedation; 13:14:29 A MULTIPACK JL 4.0 5Fr catheter was advanced over the wire and used for Left Coronary Angiography. 13:14:35 LCA angiography performed. 13:14:37 Injector settings: Ml/sec: 3, Volume: 6, 13:14:39 Catheter removed. 13:14:43 A MULTIPACK 3DRC 5Fr catheter was advanced over the wire and used for Right Coronary Angiography. 13:14:45 RCA angiography performed. 13:14:49 Injector settings: Ml/sec: 3, Volume: 6, 13:15:50 Catheter removed. 13:16:05 A MULTIPACK Pigtail 5 Fr catheter was advanced over the wire and used for LV Angiography. 13:17:09 LV hemodynamics recorded. 13:17:13 Injector settings: Ml/sec: 5, Volume: 15, 13:18:30 EF : 55 % 13:18:32 Catheter removed. 13:18:39 Proceeding to intervention. 13:18:46 Sheath upsized to a 6 Fr Short. 13:18:55 TUBING High Pressure Extension Tubing (Cipriano) ([id number]) opened to sterile field. 13:18:55 INFLATOR Merit BasixCompak (UG9681) opened to sterile field. 13:18:56 SHEATH 6Fr Prelude ([id number]) opened to sterile field. 13:19:23 BMW 300cm Treadwell 2 J wire ([id number]) opened to sterile field. 13:19:32 GUIDE 6FR 3DRC SH catheter ([id number]) opened to sterile field. 13:19:47 6 Fr 3drc sh guide catheter was inserted over the wire 13:20:07 bmw wire advanced. 13:20:08 Wire advanced across lesion. 13:22:01 Heparin Bolus 9500 units I.V. was administered by Eliud Romeo RN; for anticoagulation; 13:27:17 Inflate balloon Inflation number: 1 A EMERGE OTW 3.0 x 12 balloon ([id number]) was prepped and advanced across the Prox RCA, then inflated to 12 AYLEEN for 0:10 (min:sec). 13:27:41 Inflation number: 2 The EMERGE OTW 3.0 x 12 balloon ([id number]) was reinflated across the Prox RCA, to 6 AYLEEN for 0:10 (min:sec). 13:28:36 Inflation number: 3 The EMERGE OTW 3.0 x 12 balloon ([id number]) was reinflated across the Prox RCA, to 8 AYLEEN for 0:10 (min:sec). 13:29:38 Balloon removed over the wire. 13:35:34 Place stent Inflation Number: 4 A CHERELLE OTW 3.0 x 18 stent ([id number]) was prepped and advanced across the Prox RCA. The stent was deployed at 12 AYLEEN for 0:10 (min:sec). 13:37:17 Stent catheter was removed intact over wire. 13:37:29 EXOSEAL 6Fr (EX600) opened to sterile field. 13:39:37 Nitroglycerin IC/IA 100 mcg I.C. was administered by Eliud Romeo RN; for vasodilation; 13:41:00 Wire removed. 13:41:00 Guide catheter removed. 13:41:48 Sheath removed intact; hemostasis achieved with Exoseal to the Right Femoral artery. 13:41:53 Procedure ended.(Physican Out) 13:42:06 Fluoroscopy time 10.30 minutes. 13:42:11 Fluoroscopy dose: 1100 mGy 13:42:11 Flurop Dose total: 1100 13:42:16 Contrast amount:Isovue 300 133ml. 13:42:17 Sharps counted by scrub and verified by R.N. 13:42:18 Insertion/operative site no bleeding no hematoma. 13:42:21 Post-op/insertion site Right Femoral artery dressed using a 4 x 4 and Tegaderm. 13:42:23 Post right femoral artery:stable 13:42:33 Post Procedure Pulses reassessed and unchanged 13:42:36 Post procedure rhythm: unchanged. 13:42:39 Estimated blood loss: 5 ml 13:42:40 Post procedure instruction explained to patient.Patient verbalizes understanding. 13:42:41 Patient needs reinforcement of post procedure teaching. 13:42:42 Procedure and supply charges have been captured, reviewed, submitted and are correct. 13:42:47 Procedure Complication : No complications 13:42:50 See physician's report for complete and final results. 13:42:53 Report given to [facility]. 13:42:55 Patient transfered to [facility] II with Stretcher. 13:42:58 Procedure ended. 13:42:58 Full Disclosure recording stopped 13:43:15 ACC-PCI Only Patient was given prescriptions, or instructed by Garrett Cota MD to start/continue the following medications upon discharge: Plavix 13:43:17 End room use (Document Last) 13:53:14 Vital chart was stopped Intervention Summary Intervention Notes Time ActionType Lesion and Equipment Action# Pressure Duration Attributes Used 13:27:17 Inflate Prox RCA EMERGE OTW 1 12 00:10 balloon 3.0 x 12 balloon ([id number]) 13:27:41 Reinflate Prox RCA EMERGE OTW 2 6 00:10 balloon 3.0 x 12 balloon ([id number]) 13:28:36 Reinflate Prox RCA EMERGE OTW 3 8 00:10 balloon 3.0 x 12 balloon ([id number]) 13:35:34 Place stent Prox RCA CHERELLE OTW 3.0 4 12 00:10 x 18 stent ([id number]) Device Usage Item Name Manufacture Quantity Catalog Number Hospital Part Current Minimal Lot# / Charge Number Stock Stock Serial# Code ACIST Syringe Acist 1 40907 766094 003552 140835 20 (26916) [employer] Bag Decanter Microtek 1 2002S 255910 28975 828126 5 (2002S) Medical Inc. Medline Cath Cardinal 1 [id number] 306225 18231 890243 5 Pack Health ([id number]) DIAGNOSTIC WIRE [facility]esar 1 008417 067786 805375 001320 30 .035 260cm J wire (610568) ACIST Hand Acist 1 84320 221376 172115 081200 5 Control (22780) Medical Systems Inc ACIST Manifold Acist 1 17120 637237 835662 642453 5 (37038) Medical Systems Inc DIAGNOSTIC Cardinal 1 ZB7773 469411 23550 798867 30 Multipack 5Fr Health catheter set (QG6293) Tegaderm 4 x 4 3M 1 1626W 332503 365086 615124 5 (1626W) SHEATH Prelude Merit 1 KWM-8C-69-035 499624 823969 720940 5 5Fr 0.035 Medical (JHW-1O-83-035) MULTIPACK JL Cardinal 1 760310 5 4.0 5Fr Health catheter MULTIPACK 3DRC Cardinal 1 913560 5 5Fr catheter Health MULTIPACK Cardinal 1 788992 5 Pigtail 5 Fr Health catheter TUBING High Merit 1 [id number] 778428 46683 319861 10 Pressure Medical Extension Tubing (Cota) (BG9813U) INFLATOR Merit Merit 1 DU9860 276907 596931 229712 15 BasixCompak Medical (PV3439) SHEATH 6Fr Merit 1 [id number] 535082 192417 641638 5 Prelude Medical ([id number]) BMW 300cm Cramer 1 [id number] 149266 254071 239943 5 Treadwell 2 J Vascular wire (6500494Q) GUIDE 6FR 3DRC Medtronic 1 [id number] 898213 958440 880619 1 SH catheter ([id number]) EMERGE OTW 3.0 Commodore 1 [id number] 156278 923909 185162 5 [id number] x 12 balloon Scientific ([id number]) CHERELLE OTW 3.0 x Medtronic 1 [id number] 928014 8631402 647929 5 [id number] 18 stent ([id number]) EXOSEAL 6Fr Cardinal 1 EX600 093924 989031 928939 10 (EX600) Health Signature Audit [place] Stage Time Signature Unsigned Intra-Procedure 01/19/2018 Tammi Douglas 1:53:12 PM RT(R) Signatures Monitor : Tammi Douglas RT Signature : Date : Time : [facility] [address] [place] [address]
[~2018-01-18 12:36] MED LIST changes: -BRILINTA90 MG PO; -ISOSORBIDE MONO30 M1 PO; -LIPITOR40 MG PO; -NITROSTAT0.4 MG SL
[2018-01-18] MEDS ORDERED: ISOSORBIDE MONO30 M1 PO (13:26)
[2018-01-18] MEDS ORDERED: LIPITOR40 MG PO (13:26)
[2018-01-18] MEDS ORDERED: NITROSTAT0.4 MG SL (13:27)
[2018-01-18 15:04] LABS: BASOPHILS 0.3 % (0-2); EOSINOPHILS 1.1 % (0-7); HEMATOCRIT 35.8 % (36.0-48.0); HEMOGLOBIN 10.6 g/dL (12-16); IMMATURE GRANULOCYTES 0.1 % (0-5); LYMPHOCYTES 32.8 % (15-50); MCH 23.2 pg (26.0-34.0); MCHC 29.6 g/dL (31.0-37.0); MCV 78.3 fL (80.0-100.0); MEAN PLATELET VOLUME 9.8 fL (7.4-10.4); MONOCYTES 9.2 % (2-11); NEUTROPHILS 56.5 % (40-80); PLATELET COUNT 229 10x3/uL (130-400); RBC 4.57 10x6/uL (4.00-5.40); RDW 16.8 % (11.5-14.5); WBC 8.7 10x3/uL (4.8-10.8)
[2018-01-18 15:09] VITALS: BP 129/47; BMI 39.0
[2018-01-18 15:25] LABS: ALBUMIN 3.3 g/dL (3.4-5.0); ALKALINE PHOSPHATASE 48 U/L (46-116); ALT (SGPT) 27 U/L (10-68); BILIRUBIN - TOTAL 0.19 mg/dL (0.2-1.3); CALC OSMOLALITY 285 mosm/kg (275-300); CARBON DIOXIDE 30.8 mmol/L (21.0-32.0); CHLORIDE - SERUM 104 mmol/L (98-107); CHOL - HDL RATIO 2.9 ratio (2.3-4.1); CHOLESTEROL, TOTAL 141 mg/dL (0-200); CKMB 2.6 U/L (0.0-3.6); CREATINE KINASE 72 UL (21-215); GLUCOSE 140 mg/dL (74-106); HDL CHOLESTEROL 49 mg/dL (32-96); LDL CHOLESTEROL 70 mg/dL (0-100); LDL-HDL RATIO 1.4 ratio (1.5-3.5); POTASSIUM - SERUM 4.5 mmol/L (3.5-5.1); PROTEIN - SERUM 6.4 g/dL (6.4-8.2); SODIUM 140 mmol/L (136-145); TRIGLYCERIDE 110 mg/dL (30-200); UREA NITROGEN 26 mg/dL (7-18); eGFR NON AFRICAN AMERICAN 57 mL/min (90-120)
[2018-01-18 15:44] LABS: TROPONIN-I < 0.017 ng/mL (0.000-0.060)
[2018-01-18 17:23] VITALS: BP 132/51
[2018-01-18 17:27] LABS: INR 0.98 (0.85-1.17); PROTIME 12.6 SECONDS (11.6-15.0)
[2018-01-18 20:00] VITALS: BP 164/61
[2018-01-18 21:45] LABS: CALC OSMOLALITY 285 mosm/kg (275-300); CARBON DIOXIDE 29.2 mmol/L (21.0-32.0); CHLORIDE - SERUM 103 mmol/L (98-107); CKMB 2.1 U/L (0.0-3.6); CREATINE KINASE 69 UL (21-215); CREATININE - SERUM 1.1 mg/dL (0.6-1.3); GLUCOSE 177 mg/dL (74-106); POTASSIUM - SERUM 4.1 mmol/L (3.5-5.1); SODIUM 139 mmol/L (136-145); UREA NITROGEN 24 mg/dL (7-18); eGFR NON AFRICAN AMERICAN 51 mL/min (90-120)
[2018-01-18 21:57] LABS: TROPONIN-I < 0.017 ng/mL (0.000-0.060)
[2018-01-19] VITALS: BP 159/40
[2018-01-19 03:36] LABS: CKMB 1.3 U/L (0.0-3.6); CREATINE KINASE 57 UL (21-215); TROPONIN-I < 0.017 ng/mL (0.000-0.060)
[2018-01-19 04:00] VITALS: BP 190/62
[2018-01-19 04:56] LABS: BASOPHILS 0.3 % (0-2); EOSINOPHILS 2.2 % (0-7); HEMOGLOBIN 11.1 g/dL (12-16); IMMATURE GRANULOCYTES 0.3 % (0-5); LYMPHOCYTES 42.9 % (15-50); MCH 23.2 pg (26.0-34.0); MCV 77.2 fL (80.0-100.0); MEAN PLATELET VOLUME 9.8 fL (7.4-10.4); MONOCYTES 8.2 % (2-11); NEUTROPHILS 46.1 % (40-80); PLATELET COUNT 220 10x3/uL (130-400); RBC 4.79 10x6/uL (4.00-5.40); RDW 16.7 % (11.5-14.5); WBC 7.9 10x3/uL (4.8-10.8)
[2018-01-19 05:22] LABS: ANION GAP 12.1 mmol/L (8-16); CALCIUM 9.4 mg/dL (8.5-10.1); CARBON DIOXIDE 29.4 mmol/L (21.0-32.0); CREATININE - SERUM 0.9 mg/dL (0.6-1.3); POTASSIUM - SERUM 4.5 mmol/L (3.5-5.1)
[2018-01-19 08:02] VITALS: BP 132/66
[2018-01-19 10:58] VITALS: BP 128/69
[2018-01-19 13:53] VITALS: Ht 157.5 cm; Wt 96.6 kg
[2018-01-19 16:51] VITALS: BP 134/68
== END 2018-01-19 18:26 | disposition home or self-care (01) | DRG 247 ==
LOC: D.M2 12:36
PROVIDERS: Emergency Medicine; Internal Medicine Cardiovascular Disease
PROC: 027034Z Dilation of Coronary Artery, One Artery with Drug-eluting Intraluminal Device, Percutaneous Approach (ICD-10-PCS; principal; 2018-01-19)
PROC: 4A023N7 Measurement of Cardiac Sampling and Pressure, Left Heart, Percutaneous Approach (ICD-10-PCS; 2018-01-19)
PROC: B2110ZZ Fluoroscopy of Multiple Coronary Arteries using High Osmolar Contrast (ICD-10-PCS; 2018-01-19)
PROC: B2150ZZ Fluoroscopy of Left Heart using High Osmolar Contrast (ICD-10-PCS; 2018-01-19)
DX: I25.110 Atherosclerotic heart disease of native coronary artery with unstable angina pectoris (principal); T82.855A Stenosis of coronary artery stent, initial encounter; Y83.8 Other surgical procedures as the cause of abnormal reaction of the patient, or of later complication, without mention of misadventure at the time of the procedure; K21.9 Gastro-esophageal reflux disease without esophagitis; I11.0 Hypertensive heart disease with heart failure; I50.9 Heart failure, unspecified; E11.9 Type 2 diabetes mellitus without complications; I65.23 Occlusion and stenosis of bilateral carotid arteries; J44.9 Chronic obstructive pulmonary disease, unspecified; I48.91 Unspecified atrial fibrillation; G47.30 Sleep apnea, unspecified; G25.81 Restless legs syndrome; E78.5 Hyperlipidemia, unspecified; Z95.5 Presence of coronary angioplasty implant and graft; Z87.891 Personal history of nicotine dependence

== ENCOUNTER 2018-01-21 10:10 | Inpatient (IN) | payer MEDICARE, OTHER ==
[2018-01-21] VITALS (45 sets, daily range): BP systolic 80–145; BP diastolic 35–68; BMI 39.0
[~2018-01-21] VITALS: Ht 157.5 cm; Wt 106.6 kg
--- NOTE | ~2018-01-21 | EC ---
PATIENT:FLY ALMAZAN DATE OF SERVICE: 01/21/18 SEX: F MEDICAL RECORD: [id number] DATE OF : 36 LOCATION:D.M2 D.211 AGE OF PATIENT: 77 ADMISSION DATE: 01/21/18 REFERRING PHYSICIAN: INTERPRETING PHYSICIAN: ARYA MITCHELL MD ECHOCARDIOGRAM REPORT ECHO CHARGES 4 ECHO COMPLETE Date: 01/23 CLINICAL DIAGNOSIS: POST FL ECHOCARDIOGRAPHIC MEASUREMENTS (adult normal given) AC root (d.<3.7cm) 2.7 cm LV Septum d (<1.2 cm> 1.6 cm Valve Excursion 1.1 cm LV Septum (systole) 1.8 cm Left Atria (s.<4.0cm> 3.5 cm LVPW d(<1.2cm) 1.6 cm RV (d.<2.3cm) 4.6 cm LVPW (sytole) 1.9 cm LV diastole(<5.6CM) 4.7 cm MV E-F(>70mm/sec) cm LV systole 2.8 cm LVOT Diameter 1.7 cm MV exc.(>10mm) 1.9 cm Est.ejection fraction (50-75%) % DOPPLER: LVIT cm/sec A 97.0 cm/sec E 111 cm/sec LA cm/sec RVSP 36 mmHg LVOT 134 cm/sec AOP1/2T m/s Asc. 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 FINDINGS: 1. The left ventricle has mild left ventricular hypertrophy. Inflow characteristics are normal. Ejection fraction is 60%. There is mild inferior basilar hypokinesis. 2. The left atrium is normal size, structure and function. 3. The aortic valve is normal. ECHOCARDIOGRAM REPORT [id number] FLY ALMAZAN 4. The mitral valve is normal. 5. The tricuspid valve has mild tricuspid regurgitation. RVSP is normal. 6. Right ventricle is mildly dilated, but has preserved function. 7. The right atrium is mildly dilated with good function. 8. There is no pericardial effusion. CONCLUSIONS: The patient has evidence of mild hypertensive heart disease with mild inferior basilar hypokinesis, otherwise normal echocardiogram for patient's stated age. TRANSINT:[id number] Voice Confirmation ID: [id number] DOCUMENT ID: [id number] ARYA MITCHELL MD at 1147 CC: [id number] DICTATION DATE: 01/23/18 1559 ENTERPRISE APPLICATIONS MANAGER: 01/23/18 1612 ADM IN [facility] [address] [place] [address]
--- NOTE | ~2018-01-21 | HEMODYNAMI ---
PATIENT:FLY ALMAZAN MEDICAL RECORD: [id number] : 36 LOCATION:[facility] ADMISSION DATE: 01/21/18 Generatedon:01/21/201813:36 Patient name: FLY ALMAZAN Patient #: [id number] SSN: D OB: 1940 Date of study: 01/21/2018 Page: Of Hemodynamic Procedure Report Patient Data Patient Demographics Procedure consent was obtained First Name: FLY Gender: Female Last Name: NORAH : 1940 [facility] Initial: J Age: 77 year(s) Patient #: [id number] Race: Unknown Additional ID: [id number] Contact details Address: [address] [place] [address] State: [place] City: [place] Zip code: [address] Past Medical History Allergies Allergen Reaction Date Comments Reported Other allergy 09/27/2017 ARTHROTEC, CYMBALTA Other allergy 01/21/2018 metoclopramide HCL, Admission Admission Data Admission Date: 01/21/2018 Admission Time: 12:42 Room #: [id number] Lab Results Lab Result Date: 01/19/2018 Lab Result Time: 0:00 Biochemistry Name Units Result Min Max BUN mg/dl 20 --(----)*- 7 18 Creatinine mg/dl 0.9 --(-*--)-- 0.6 1.3 CBC Name Units Result Min Max Hemoglobin g/dl 11.1 *-(----)-- 13.5 17.5 Procedure Procedure Types Cath Procedure Diagnostic Procedure Intra-Aortic Balloon Pump Cardioversion External PCI Procedure AMI/SVG/FLY RAISER LOCKSTITCH PTCA or Stent AMI-BMS/LISA Initial Procedure Description Procedure Date Procedure Date: 01/21/2018 Procedure Start Time: 11:33 Procedure End Time: 13:25 Procedure Staff Name Function Thea Pedro RN Nurse Marquise Ham RT Monitor Xiomara Jordan RT Scrub Laureano Mcmahon MD Performing Physician Procedure Data Cath Procedure Fluoroscopy Diagnostic fluoroscopy Total fluoroscopy Time: 9.8 time: 9.8 min min Diagnostic fluoroscopy Total fluoroscopy dose: dose: 1451 mGy 1451 mGy Entry Location Entry Primary Successful Side Size Upsize Upsize Entry Closure Succes sful Closure Location (Fr) 1 (Fr) 2 (Fr) Remarks Device Remarks Femoral Right 6 Fr 8 Fr Sheath artery Short sutured in place Estimated blood loss: 10 ml Procedure Complications Cardiogenic Shock Procedure Medications Medication Administration Route Dosage Amiodarone Loading I.V. drip 150 mg Dose (150mg/100ml D5W) Atropine I.V. 1 mg Heparin Bolus I.V. 5000 units Epinephrine I.V. 1 mg Integrilin (Bolus I.V. 9 ml 2mg/ml) Dopamine I.V. drip 7.5 mcg/kg/min (400mg/250ml D5W) Epinephrine I.V. 1 mg Dopamine I.V. drip 10 mcg/kg/min (400mg/250ml D5W) Zofran I.V. 4 mg Heparin Bolus I.V. 5000 units Dopamine I.V. drip 5 mcg/kg/min (400mg/250ml D5W) Integrilin Drip I.V. drip 15.5 ml/hr (75mg/100ml) 0.9% NaCl I.V. bolus 1000 ml 0.9% NaCl I.V. bolus 1000 ml Heparin Drip I.V. drip 800 units/hr (18704cztyq/250 D5W) Hemodynamics Rest HGB: 11.1 (g/dl) Heart Rate: 108 (bpm) Snapshots Pre Cath Intra NCS Post Cath Vital Signs Time Heart Resp SPO2 etCO2 NIBP (mmHg) Rhythm Pain Sedation Rate (ipm) (%) (mmHg) Status Level (bpm) 11:27:06 70 26 0 Measuring NSR w/ ST 0 (11) 10(A) Elevation , No pain 11:29:09 117 30 0 Time NSR w/ ST 0 (11) 10(A) Exceeded Elevation , No pain 11:34:08 99 15 99 0 Measuring NSR w/ ST 0 (11) 10(A) Elevation , No pain 11:36:11 94 16 98 0 Time NSR w/ ST 0 (11) 10(A) Exceeded Elevation , No pain 11:41:08 52 21 100 0 103/46(71) NSR w/ ST 0 (11) 10(A) Elevation , No pain 11:46:07 114 15 96 0 Measuring NSR w/ ST 0 (11) 10(A) Elevation , No pain 11:48:10 117 12 87 0 93/49(0) NSR w/ ST 0 (11) 10(A) Elevation , No pain 11:53:09 92 9 95 0 Measuring NSR w/ ST 0 (11) 10(A) Elevation , No pain 11:53:50 81 15 94 0 116/54(104) NSR w/ ST 0 (11) 10(A) Elevation , No pain 11:58:49 111 32 100 0 Measuring NSR w/ ST 0 (11) 10(A) Elevation , No pain 12:00:52 107 19 96 0 164/76(0) NSR w/ ST 0 (11) 10(A) Elevation , No pain 12:05:51 119 13 95 0 Measuring NSR w/ ST 0 (11) 10(A) Elevation , No pain 12:06:07 126 12 94 0 Time NSR w/ ST 0 (11) 10(A) Exceeded Elevation , No pain 12:11:06 112 11 95 0 Measuring NSR w/ ST 0 (11) 10(A) Elevation , No pain 12:13:09 108 10 94 0 92/54(0) NSR w/ ST 0 (11) 10(A) Elevation , No pain 12:18:08 98 19 93 0 Measuring NSR 0 (11) 10(A) , No pain 12:20:11 78 19 95 0 Time NSR 0 (11) 10(A) Exceeded , No pain 12:25:10 80 12 96 0 Measuring NSR 0 (11) 10(A) , No pain 12:27:13 87 18 94 0 Time NSR 0 (11) 10(A) Exceeded , No pain 12:32:12 78 14 96 Measuring NSR 0 (11) 10(A) , No pain 12:34:15 89 24 94 Time NSR 0 (11) 10(A) Exceeded , No pain 12:39:14 89 35 93 88/52(0) NSR 0 (11) 10(A) , No pain 12:41:16 88 24 93 Time NSR 0 (11) 10(A) Exceeded , No pain 12:48:18 85 26 93 96/58(0) NSR 0 (11) 10(A) , No pain 12:53:18 82 26 94 Measuring NSR 0 (11) 10(A) , No pain 12:55:20 81 14 100 94/71(0) NSR 0 (11) 10(A) , No pain 13:00:20 83 22 Measuring NSR 0 (11) 10(A) , No pain 13:02:22 82 17 Time NSR 0 (11) 10(A) Exceeded , No pain 13:07:21 18 Measuring NSR 0 (11) 10(A) , No pain 13:09:24 Time NSR 0 (11) 10(A) Exceeded , No pain 13:14:05 No Cuff NSR 0 (11) 10(A) , No pain 13:18:46 No Cuff NSR 0 (11) 10(A) , No pain 13:23:26 No Cuff NSR 0 (11) 10(A) , No pain Medications Time Medication Route Dose Verified Delivered Reason Notes Effectiveness by by 11:28:33 Atropine I.V. 1 mg Laureano Buffie Per Merlene Pedro RN physician 11:30:35 0.9% NaCl I.V. 1000 ml Laureano Buffie Per from IV bolus Merlene Pedro RN physician to rt MD arm 11:31:12 Amiodarone I.V. 150 mg Laureano Buffie used for Loading Dose drip Merlene Pedro RN procedure (150mg/100ml D5W) 11:35:21 Heparin Bolus I.V. 5000 units Laureano Buffie verified Merlene Pedro RN with dr MD mcmahon 11:41:45 Epinephrine I.V. 1 mg Laureano Buffie Per Merlene Pedro RN physician 11:46:06 Integrilin I.V. 9 ml Laureano Buffie Per Wasted 1 (Bolus 2mg/ml) Merlene Pedro RN physician ml of MD vial 11:54:10 Dopamine I.V. 7.5 Laureano Buffie Per (400mg/250ml drip mcg/kg/min Merlene Pedro RN physician D5W) 11:56:12 Epinephrine I.V. 1 mg Laureano Buffie Per Merlene Pedro RN physician 11:56:35 Dopamine I.V. 10 Laureano Buffie Per (400mg/250ml drip mcg/kg/min Merlene Pedro RN physician D5W) 11:59:37 Zofran I.V. 4 mg Laureano Buffie Per Merlene Pedro RN physician 12:02:36 Heparin Bolus I.V. 5000 units Laureano Buffie verified Merlene Pedro RN with dr MD mcmahon 12:02:58 Dopamine I.V. 5 Laureano Buffie Per (400mg/250ml drip mcg/kg/min Merlene Pedro RN physician D5W) 12:17:44 Integrilin Drip I.V. 15.5 ml/hr Laureano Buffie (75mg/100ml) drip Merlene Pedro RN, MD 12:29:25 0.9% NaCl I.V. 1000 ml Laureano Buffie Per to IV to bolus Merlene Pedro RN physician left arm MD 13:01:25 Heparin Drip I.V. 800 Laureano Buffie Per at 8 (66565ygexj/250 drip units/hr Merlene Pedro RN physician ml/hr D5W) MD via smart pump verified with dr mcmahon. Procedure Log Time Note 11:13:53 Diagnostic Cath status Elective 11:13:56 Thea Pedro RN sent for patient. Start room use. 11:14:09 Time tracking: Call back (After hours or weekends) 11:14:16 Plan of Care:Hemodynamics will remain stable., Cardiac rhythm will remain stable., Comfort level will be maintained., Respiratory function will remain adequate., Patient/ family verbilizes understanding of procedure., Procedure tolerated without complication., Recovers from procedure without complications.. 11:14:21 Patient received from ED to CCL 1 Alert and oriented. Tansferred to table in Supine position. 11:21:47 Correct patient and procedure confirmed by team. 11:21:47 Warm blankets applied, and jose hugger turned on for patient comfort. 11:21:50 Signed procedure consent form obtained from patient. 11:21:51 ECG and BP/O2 sat monitors applied to patient. 11:21:53 Pre-procedure instructions explained to patient. 11:21:56 Pre-op teaching completed and patient verbalized understanding. 11:21:56 H&P Date Dictated: 01/21/2018 ER History on chart.. 11:21:58 Family in waiting room. 11:22:00 Patient NPO since Midnight. 11:22:01 Patient allergic to Other allergymetoclopramide HCL, 11::02 Is patient on blood thinner?Yes 11::02 Is the patient allergic to Iodine/contrast media? No. 11::03 ACC The patient was administered the following blood thiners within the last 24 hours: ACCPlavix 11:22:04 Patient diabetic? Yes. 11:22:05 If diabetic: On Metformin? Yes 11:22:06 Previous problem with sedation/anesthesia? No ? 11:22:07 Snore? No 11:22:08 Deviated septum? No 11:22:08 Sleep apnea? No 11:22:09 Airway obstruction? Yes copd 11:22:09 Sticks out tongue? Yes 11:22:09 Opens mouth fully? Yes 11:22:10 Dentures? No ? 11:22:11 IV patent on arrival in left hand with 0.9% NaCl at KVO. 11:22:11 Pre procedure: right dorsailis pedis pulse 2+ Normal; easily identifiable; not easily obliterated 11:22:12 IV patent on arrival in right hand with 0.9% NaCl at KVO. 11:22:13 Lab results completed and on chart. 11:22:14 Left groin area was prepped with chlora-prep and draped in sterile fashion 11::30 External pacer/defibrillator. Pads placed on patient. 11::30 Arrhythmia noted, Vtach 11::31 Patient defibrillated/cardioverted at 200 Joules. 11:25:57 Vital chart was started 11:27:00 Arrhythmia noted, patient unresponsive. No pulses palpable. CPR begun. 11:27:05 Pt. bagged with bag/mask with 100% O2 by Laureano Mcmahon MD 11:27:25 CPR stopped 11:27:26 Patient defibrillated/cardioverted at 275 Joules. 11:27:45 Respiratory therapist paged Code BLUE called. 11:28:33 Atropine 1 mg I.V. was administered by Thea Perdo RN; Per physician; 11::35 COPILOT Valve Control ([id number]) opened to sterile field. 11:30:35 0.9% NaCl 1000 ml I.V. bolus was administered by Thea Pedro RN; Per physician; from IV to rt arm 11:31:12 Amiodarone Loading Dose (150mg/100ml D5W) 150 mg I.V. drip was administered by Thea Pedro RN; used for procedure; 11:32:03 Baseline sample Acquired. 11:32:10 Rhythm: w/ ST elevation 11:32:13 Full Disclosure recording started 11:32:19 --------ALL STOP TIME OUT------ 11:32:19 Physician arrived 11:32:20 Final Timeout: patient, procedure, and site verified with staff and physician. All members of the team are in agreement. 11:32:21 Left groin site verified by team. 11:32:24 Physical assessment completed. ASA score P 4 - A patient with severe systemic disease that is a constant threat to life as per Laureano Mcmahon MD. 11:32:27 Sedation plan: IV Moderate Sedation Medication:Versed, Fentanyl 11:32:32 Use device set Femoral Dx 11:32:34 ACIST Syringe (06109) opened to sterile field. 11:32:36 MICROPUNCTURE 4FR Cook ([id number]) opened to sterile field. 11:32:36 Bag Decanter (2002S) opened to sterile field. 11:32:37 ACIST Hand Control (47298) opened to sterile field. 11:32:37 ACIST Manifold (00397) opened to sterile field. 11:32:38 Tegaderm 4 x 4 (1626W) opened to sterile field. 11:32:45 Medline Cath Pack ([id number]) opened to sterile field. 11:32:46 DIAGNOSTIC WIRE .035 260cm J wire (962198) opened to sterile field. 11:32:47 DIAGNOSTIC Multipack 5Fr catheter set (VV2258) opened to sterile field. 11:32:48 SHEATH Prelude 6Fr 0.035 (UQG-4S-78-035) opened to sterile field. 11:32:58 Procedure started. 11:33:02 Local anesthetic to left femerol artery with Lidocaine 1% by Laureano Mcmahon MD.INITIAL ACCESS ONLY 11:33:09 A 6 Fr Short sheath was inserted into the Right Femoral artery 11:33:21 GUIDE 6FR ART 3.5 SH catheter ([id number]) opened to sterile field. 11:33:36 BMW 300cm [place] 2 J wire ([id number]) opened to sterile field. 11:33:41 INFLATOR Merit Britneyk (MQ1497) opened to sterile field. 11:33:52 BMW 300cm [place] 2 J wire ([id number]) opened to sterile field. 11:33:55 6 Fr art 3.5 guide catheter was inserted over the wire 11:33:59 RCA angiography performed. 11:35:21 Heparin Bolus 5000 units I.V. was administered by Thea Pedro RN; ; verified with dr mcmahon 11:35:53 bmw wire advanced. 11:35:55 Wire advanced across lesion. 11:37:07 Inflate balloon Inflation number: 1 A EUPHORA 2.0 x 12 Balloon ([id number]) was prepped and advanced across the Undefined1, then inflated to 10 AYLEEN for 0:11 (min:sec). 11:37:23 Inflation number: 2 The EUPHORA 2.0 x 12 Balloon ([id number]) was reinflated across the Undefined1, to 10 AYLEEN for 0:10 (min:sec). 11:37:36 Inflation number: 3 The EUPHORA 2.0 x 12 Balloon ([id number]) was reinflated across the Undefined1, to 12 AYLEEN for 0:10 (min:sec). 11:37:45 Balloon removed over the wire. 11:41:45 Epinephrine 1 mg I.V. was administered by Thea Pedro RN; Per physician; 11:46:06 Integrilin (Bolus 2mg/ml) 9 ml I.V. was administered by Thea Pedro RN; Per physician; Wasted 1 ml of vial 11:48:53 The CHERELLE RX 3.0 x 30 stent ([id number]) was advanced then removed because of failure to cross lesion 11:50:37 Inflate balloon Inflation number: 4 A EUPHORA 3.0 x 20 Balloon ([id number]) was prepped and advanced across the Undefined1, then inflated to 8 AYLEEN for 0:10 (min:sec). 11:50:56 Inflation number: 5 The EUPHORA 3.0 x 20 Balloon ([id number]) was reinflated across the Undefined1, to 8 AYLEEN for 0:10 (min:sec). 11:51:16 Inflation number: 6 The EUPHORA 3.0 x 20 Balloon ([id number]) was reinflated across the Undefined1, to 10 AYLEEN for 0:10 (min:sec). 11:51:47 Balloon removed over the wire. 11:53:45 Place stent Inflation Number: 7 A CHERELLE RX 3.0 x 30 stent ([id number]) was prepped and advanced across the Undefined1. The stent was deployed at 12 AYLEEN for 0:10 (min:sec). 11:54:10 Dopamine (400mg/250ml D5W) 7.5 mcg/kg/min I.V. drip was administered by Thea Pedro RN; Per physician; 11:56:12 Epinephrine 1 mg I.V. was administered by Thea Pedro RN; Per physician; 11:56:35 Dopamine (400mg/250ml D5W) 10 mcg/kg/min I.V. drip was administered by Thea Pedro RN; Per physician; 11:58:[address] [place] ([id number]) opened to sterile field. 11:58:17 Place stent Inflation Number: 8 A CHERELLE RX 3.0 x 12 stent ([id number]) was prepped and advanced across the Undefined1. The stent was deployed at 16 AYLEEN for 0:10 (min:sec). 11:58:30 Stent catheter was removed intact over wire. 11:59:37 Zofran 4 mg I.V. was administered by Thea Pedro RN; Per physician; 12:01:51 Inflate balloon Inflation number: 9 A EUPHORA 3.5 x 15 Balloon ([id number]) was prepped and advanced across the Undefined1, then inflated to 14 AYLEEN for 0:10 (min:sec). 12:02:05 Balloon removed over the wire. 12:02:36 Heparin Bolus 5000 units I.V. was administered by Thea Pedro RN; ; verified with dr mcmahon 12:02:58 Dopamine (400mg/250ml D5W) 5 mcg/kg/min I.V. drip was administered by Thea Pedro RN; Per physician; 12:03:00 Wire removed. 12:03:01 Guide catheter removed. 12:03:05 Sheath upsized to a 8 Fr. 12:17:44 Integrilin Drip (75mg/100ml) 15.5 ml/hr I.V. drip was administered by Thea Pedro RN; ; 12:24:27 IABP 34cm balloon catheter ([id number]) opened to sterile field. 12:25:13 34cc IABP inserted into the LFA . 12::15 Augmentation: 1:1 per physician. 12::17 Trigger: Pressure 12:26:11 2-0 Silk 685H opened to sterile field. 12:26:12 2-0 Silk 685H opened to sterile field. 12:26:41 Procedure ended.(Physican Out) 12::52 Sheath removed intact; hemostasis achieved with Sheath sutured in place to the Right Femoral artery. 12:27:57 Fluoroscopy time 09.80 minutes. 12::03 Fluoroscopy dose: 1451 mGy 12:: Flurop Dose total: 1451 12::15 Sharps counted by scrub and verified by R.N. 12:29:25 0.9% NaCl 1000 ml I.V. bolus was administered by Thea Pedro RN; Per physician; to IV to left arm 12:59:44 Insertion/operative site no bleeding no hematoma. 13:00:05 Post-op/insertion site Left Femoral artery dressed using a 4 x 4 and Tegaderm. 13:00:11 Post left femerol artery:stable, soft, clean and dry 13:00:18 Post Procedure Pulses reassessed and unchanged 13:00:24 Post procedure rhythm: sinus rhythm 13:00:48 Estimated blood loss: 10 ml 13:01:25 Heparin Drip (96733jcvrp/250 D5W) 800 units/hr I.V. drip was administered by Thea Pedro RN; Per physician; at 8 ml/hr via smart pump verified with dr mcmahon. 13:05:24 Post procedure instruction explained to patient.Patient verbalizes understanding. 13::27 Patient needs reinforcement of post procedure teaching. 13:06:08 Procedure type changed to Cath procedure, Diagnostic procedure, Intra-Aortic Balloon Pump, Cardioversion External, PCI procedure, AMI/SVG/FLY RAISER LOCKSTITCH PTCA or Stent, AMI-BMS/LISA Initial 13::26 Sharps counted by scrub and verified by R.N. 13::26 Alarms reviewed by R. N. 13:24:50 Procedure Complication : Cardiogenic Shock 13:25:08 See physician's report for complete and final results. 13:25:08 Vital chart was stopped 13:25:12 Report given to CVICU. 13:25:13 Patient transfered to CVICU with Stretcher. 13:25:15 Full Disclosure recording stopped 13:25:15 Procedure ended. 13:25:18 End room use (Document Last) Intervention Summary Intervention Notes Time ActionType Lesion and Equipment Used Action# Pressure Duration Attributes 11:37:07 Inflate Undefined1 EUPHORA 2.0 x 1 10 00:11 balloon 12 Balloon ([id number]) 11:37:23 Reinflate Undefined1 EUPHORA 2.0 x 2 10 00:10 balloon 12 Balloon ([id number]) 11:37:36 Reinflate Undefined1 EUPHORA 2.0 x 3 12 00:10 balloon 12 Balloon ([id number]) 11:48:53 Discard CHERELLE RX 3.0 x Stent 30 stent ([id number]) 11:50:37 Inflate Undefined1 EUPHORA 3.0 x 4 8 00:10 balloon 20 Balloon ([id number]) 11:50:56 Reinflate Undefined1 EUPHORA 3.0 x 5 8 00:10 balloon 20 Balloon ([id number]) 11:51:16 Reinflate Undefined1 EUPHORA 3.0 x 6 10 00:10 balloon 20 Balloon ([id number]) 11:53:45 Place stent Undefined1 CHERELLE RX 3.0 x 7 12 00:10 30 stent ([id number]) 11:58:17 Place stent Undefined1 CHERELLE RX 3.0 x 8 16 00:10 12 stent ([id number]) 12:01:51 Inflate Undefined1 EUPHORA 3.5 x 9 14 00:10 balloon 15 Balloon ([id number]) Device Usage Item Name Manufacture Quantity Catalog Number Hospital Part Curr nt Minimal Lot# / Charge Number Stock Stock Serial# Code ACIST Syringe Acist 1 48537 496998 600187 12159 8 20 (13376) Medical Systems Inc Bag Decanter Microtek 1 530155 29801 57419 8 5 () Medical Inc. ACIST Manifold Acist 1 90816 494154 220258 47320 7 5 (74566) [employer] Systems Inc ACIST Hand Acist 1 43289 593500 663586 88432 1 5 Control (92751) Medical Systems Inc Tegaderm 4 x 4 3M 1 1626W 636944 340965 14281 1 5 (1626W) Medline Cath Cardinal 1 [id number] 776258 37141 30770 1 5 Pack Health ([id number]) DIAGNOSTIC WIRE St Cesar 1 053852 961231 999789 01531 2 30 .035 260cm J wire (257484) DIAGNOSTIC Cardinal 1 DJ9493 995835 55050 15289 4 30 Multipack 5Fr Health catheter set (DE1204) GUIDE 6FR ART [place] 1 [id number] 577641 424455 74829 4 0 3.5 SH catheter Scientific ([id number]) COPILOT Valve Cramer 1 3528053 920198 707960 24007 3 5 Control Vascular (2809307) BMW 300cm Cramer 2 [id number] 423625 250519 40510 3 5 Woodland 2 J Vascular wire ([id number]) INFLATOR Merit Merit 1 JG5788 837845 223774 34921 0 15 [employer] Medical (CO2866) SHEATH Prelude Merit 1 [id number]-[id number] 042119 9489880 20363 1 5 6Fr 0.035 Medical ([id number]-[id number]) EUPHORA 2.0 x Medtronic 1 [id number] 305258 599394 93332 5 5 [id number] 12 Balloon ([id number]) CHERELLE RX 3.0 x Medtronic 1 [id number] 359275 7089397 59527 1 5 [id number] 30 stent ([id number]) EUPHORA 3.0 x Medtronic 1 [id number] 933535 913160 44310 1 5 [id number] 20 Balloon ([id number]) CHERELLE RX 3.0 x Medtronic 1 [id number] 840628 5673024 58644 8 5 [id number] 12 stent ([id number]) EUPHORA 3.5 x Medtronic 1 [id number] 019877 446253 38186 2 5 [id number] 15 Balloon ([id number]) SHEATH 8FR [facility]esar 1 698997 702083 430273 43418 3 5 Cesar (154081) IABP 34cm [facility] 1 [id number] 942152 211371 33472 7 1 balloon SALES [facility] catheter (413076) ([id number]) 2-0 Silk 685H Ethicon 2 685H 720026 83749 18240 4 5 MICROPUNCTURE [facility] 1 [id number] 744969 201050 70380 7 5 4FR [place] (U68807) Signature Audit [place] Stage Time Signature Unsigned Intra-Procedure 01/21/2018 Marquise Ham RT(R) 1:27:18 PM RT(R) 01/21/2018 1:31:54 PM Intra-Procedure 01/21/2018 Marquise Ham 1:36:41 PM RT(R) Signatures Monitor : Marquise Ham RT Signature : Date : Time : [address] [place] [address]
[~2018-01-21 10:10] MED LIST changes: +ISOSORBIDE MONO30 M1 PO; +LIPITOR40 MG PO; +NITROSTAT0.4 MG SL
[2018-01-21 10:40] LABS: BASOPHILS 0.2 % (0-2); EOSINOPHILS 1.9 % (0-7); HEMATOCRIT 37.2 % (36.0-48.0); HEMOGLOBIN 11.1 g/dL (12-16); IMMATURE GRANULOCYTES 0.2 % (0-5); LYMPHOCYTES 42.1 % (15-50); MCH 23.3 pg (26.0-34.0); MCHC 29.8 g/dL (31.0-37.0); MCV 78.2 fL (80.0-100.0); MEAN PLATELET VOLUME 10.1 fL (7.4-10.4); MONOCYTES 5.9 % (2-11); NEUTROPHILS 49.7 % (40-80); PLATELET COUNT 242 10x3/uL (130-400); RBC 4.76 10x6/uL (4.00-5.40); RDW 16.8 % (11.5-14.5); WBC 9.9 10x3/uL (4.8-10.8)
[2018-01-21 10:50] LABS: APTT 22.7 SECONDS (22.8-39.4); INR 0.95 (0.85-1.17); PROTIME 12.3 SECONDS (11.6-15.0)
[2018-01-21 10:52] LABS: ALBUMIN 3.3 g/dL (3.4-5.0); ALKALINE PHOSPHATASE 49 U/L (46-116); ALT (SGPT) 25 U/L (10-68); CALC OSMOLALITY 289 mosm/kg (275-300); CARBON DIOXIDE 29.3 mmol/L (21.0-32.0); CHLORIDE - SERUM 102 mmol/L (98-107); GLUCOSE 281 mg/dL (74-106); POTASSIUM - SERUM 4.2 mmol/L (3.5-5.1); PROTEIN - SERUM 6.7 g/dL (6.4-8.2); SODIUM 138 mmol/L (136-145); UREA NITROGEN 25 mg/dL (7-18); eGFR NON AFRICAN AMERICAN 57 mL/min (90-120)
[2018-01-21 11:08] LABS: CKMB 0.9 U/L (0.0-3.6); CREATINE KINASE 35 UL (21-215); PRO BNP 242 pg/mL (0-450)
[2018-01-21 11:12] LABS: TROPONIN-I 0.066 ng/mL (0.000-0.060)
[2018-01-21 16:03] LABS: CKMB 116.9 U/L (0.0-3.6)
[2018-01-21 16:34] LABS: CREATINE KINASE 829 UL (21-215)
[2018-01-21 16:35] LABS: TROPONIN-I 36.604 ng/mL (0.000-0.060)
[2018-01-21 17:23] LABS: ALBUMIN 3.1 g/dL (3.4-5.0); ANION GAP 16.4 mmol/L (8-16); BILIRUBIN - TOTAL 0.24 mg/dL (0.2-1.3); CALCIUM 7.8 mg/dL (8.5-10.1); CARBON DIOXIDE 23.7 mmol/L (21.0-32.0); CREATININE - SERUM 0.9 mg/dL (0.6-1.3); POTASSIUM - SERUM 4.1 mmol/L (3.5-5.1); PROTEIN - SERUM 6.2 g/dL (6.4-8.2)
[2018-01-22] VITALS (54 sets, daily range): BP systolic 96–154; BP diastolic 41–90; Ht 157.5 cm; Wt 106.6 kg
[2018-01-22 05:31] LABS: CKMB 210.7 U/L (0.0-3.6); CREATINE KINASE 1176 UL (21-215)
[2018-01-22 05:32] LABS: TROPONIN-I 65.221 ng/mL (0.000-0.060)
[2018-01-22 14:36] LABS: % SATURATION 7 % (15-55); IRON 26 ug/dl (35-150); TOTAL IRON BIND CAPACITY 360 ug/dl (260-445); UNSAT IRON BIND CAPACITY 334 ug/dl (150-375)
[2018-01-23] VITALS (16 sets, daily range): BP systolic 128–170; BP diastolic 47–68
[2018-01-23 06:13] LABS: BASOPHILS 0.1 % (0-2); HEMOGLOBIN 9.7 g/dL (12-16); IMMATURE GRANULOCYTES 0.4 % (0-5); LYMPHOCYTES 25.8 % (15-50); MCH 23.2 pg (26.0-34.0); MCHC 29.4 g/dL (31.0-37.0); MCV 78.9 fL (80.0-100.0); MEAN PLATELET VOLUME 10.4 fL (7.4-10.4); MONOCYTES 10.7 % (2-11); RBC 4.18 10x6/uL (4.00-5.40); RDW 17.2 % (11.5-14.5); WBC 7.6 10x3/uL (4.8-10.8)
[2018-01-23 06:14] LABS: PLATELET COUNT 119 10x3/uL (130-400)
[2018-01-23 06:43] LABS: ANION GAP 12.2 mmol/L (8-16); CALCIUM 8.4 mg/dL (8.5-10.1); CARBON DIOXIDE 26.7 mmol/L (21.0-32.0); CREATININE - SERUM 0.8 mg/dL (0.6-1.3)
[2018-01-23 06:52] LABS: POTASSIUM - SERUM 4.9 mmol/L (3.5-5.1)
[2018-01-23 11:42] LABS: CKMB 26.4 U/L (0.0-3.6)
[2018-01-23 11:47] LABS: TROPONIN-I 17.417 ng/mL (0.000-0.060)
[2018-01-23 18:12] LABS: CKMB 11.5 U/L (0.0-3.6)
[2018-01-23 18:16] LABS: TROPONIN-I 16.669 ng/mL (0.000-0.060)
[2018-01-23 23:44] LABS: CKMB 6.9 U/L (0.0-3.6)
[2018-01-23 23:45] LABS: TROPONIN-I 15.942 ng/mL (0.000-0.060)
[2018-01-24] VITALS (7 sets, daily range): BP systolic 106–163; BP diastolic 47–65
[2018-01-24 06:41] LABS: BASOPHILS 0.2 % (0-2); HEMOGLOBIN 8.3 g/dL (12-16); IMMATURE GRANULOCYTES 0.3 % (0-5); LYMPHOCYTES 33.3 % (15-50); MCH 23.1 pg (26.0-34.0); MCHC 29.6 g/dL (31.0-37.0); MEAN PLATELET VOLUME 10.3 fL (7.4-10.4); MONOCYTES 8.3 % (2-11); NEUTROPHILS 55.9 % (40-80); RBC 3.59 10x6/uL (4.00-5.40); WBC 5.9 10x3/uL (4.8-10.8)
[2018-01-24 06:42] LABS: PLATELET COUNT 90 10x3/uL (130-400)
[2018-01-24 07:02] LABS: PLATELET ESTIMATE NORMAL
[2018-01-24 07:36] LABS: CALC OSMOLALITY 282 mosm/kg (275-300); CALCIUM 8.3 mg/dL (8.5-10.1); CARBON DIOXIDE 27.8 mmol/L (21.0-32.0); CHLORIDE - SERUM 106 mmol/L (98-107); CKMB 5.4 U/L (0.0-3.6); CREATININE - SERUM 0.7 mg/dL (0.6-1.3); GLUCOSE 125 mg/dL (74-106); POTASSIUM - SERUM 4.4 mmol/L (3.5-5.1); SODIUM 139 mmol/L (136-145); UREA NITROGEN 23 mg/dL (7-18); eGFR NON AFRICAN AMERICAN 85 mL/min (90-120)
[2018-01-24 07:37] LABS: TROPONIN-I 12.827 ng/mL (0.000-0.060)
[2018-01-24 13:47] LABS: TROPONIN-I 10.478 ng/mL (0.000-0.060)
[2018-01-25] VITALS: BP 128/77
[2018-01-25 04:00] VITALS: BP 155/55
[2018-01-25 05:31] LABS: ANION GAP 12.1 mmol/L (8-16); CALCIUM 8.7 mg/dL (8.5-10.1); CARBON DIOXIDE 27.4 mmol/L (21.0-32.0); CREATININE - SERUM 0.8 mg/dL (0.6-1.3); POTASSIUM - SERUM 4.5 mmol/L (3.5-5.1)
[2018-01-25 06:16] LABS: BASOPHILS 0.3 % (0-2); EOSINOPHILS 2.2 % (0-7); HEMOGLOBIN 9.4 g/dL (12-16); IMMATURE GRANULOCYTES 0.3 % (0-5); LYMPHOCYTES 32.7 % (15-50); MCH 23.5 pg (26.0-34.0); MCHC 30.3 g/dL (31.0-37.0); MCV 77.5 fL (80.0-100.0); NEUTROPHILS 55.5 % (40-80); RDW 17.2 % (11.5-14.5); WBC 7.2 10x3/uL (4.8-10.8)
[2018-01-25 06:24] LABS: PLATELET COUNT 179 10x3/uL (130-400)
[2018-01-25 07:56] VITALS: BP 175/66
[2018-01-25] MEDS ORDERED: BRILINTA90 MG PO (11:43)
[2018-01-25] MEDS ORDERED: COREG12.5 MG PO (11:45)
[2018-01-25 12:22] VITALS: BP 154/54
== END 2018-01-25 14:38 | disposition home or self-care (01) | DRG 270 ==
LOC: D.ER 10:10 → D.CVICU 12:42 → D.M2 12:42
PROVIDERS: Emergency Medicine; Internal Medicine Cardiovascular Disease; Internal Medicine Nephrology
PROC: 02703DZ Dilation of Coronary Artery, One Artery with Intraluminal Device, Percutaneous Approach (ICD-10-PCS; principal; 2018-01-21 11:13)
PROC: 5A02210 Assistance with Cardiac Output using Balloon Pump, Continuous (ICD-10-PCS; 2018-01-21 11:13)
DX: I21.11 ST elevation (STEMI) myocardial infarction involving right coronary artery (principal); R57.0 Cardiogenic shock; E11.9 Type 2 diabetes mellitus without complications; I11.0 Hypertensive heart disease with heart failure; I50.9 Heart failure, unspecified; J44.9 Chronic obstructive pulmonary disease, unspecified; G47.33 Obstructive sleep apnea (adult) (pediatric); G25.81 Restless legs syndrome; D50.9 Iron deficiency anemia, unspecified

== ENCOUNTER 2018-02-19 10:04 | Emergency (ER) | payer MEDICARE, OTHER ==
[~2018-02-19] VITALS: Ht 157.5 cm; Wt 100.0 kg
[~2018-02-19 10:04] MED LIST changes: +BRILINTA90 MG PO
[2018-02-19 10:06] VITALS: Ht 157.5 cm; Wt 100.0 kg
[2018-02-19 10:51] LABS: APPEARANCE HAZY (CLEAR); COLOR YELLOW (YELLOW)
[2018-02-19 10:52] LABS: BILIRUBIN NEGATIVE (NEGATIVE); GLUCOSE 1000 mg/dL (NEGATIVE); KETONE NEGATIVE (NEGATIVE); NITRITE NEGATIVE (NEGATIVE); PROTEIN NEGATIVE (NEGATIVE); SPECIFIC GRAVITY 1.015 (1.005-1.020); UROBILINOGEN NORMAL (NORMAL)
[2018-02-19 11:02] LABS: BASOPHILS 0.3 % (0-2); EOSINOPHILS 2.1 % (0-7); HEMATOCRIT 34.4 % (36.0-48.0); HEMOGLOBIN 9.9 g/dL (12-16); IMMATURE GRANULOCYTES 0.3 % (0-5); LYMPHOCYTES 38.1 % (15-50); MCH 23.2 pg (26.0-34.0); MCHC 28.8 g/dL (31.0-37.0); MCV 80.8 fL (80.0-100.0); MEAN PLATELET VOLUME 10.1 fL (7.4-10.4); MONOCYTES 7.8 % (2-11); NEUTROPHILS 51.4 % (40-80); PLATELET COUNT 180 10x3/uL (130-400); RBC 4.26 10x6/uL (4.00-5.40); RDW 17.8 % (11.5-14.5); WBC 6.3 10x3/uL (4.8-10.8)
[2018-02-19 11:26] LABS: ALBUMIN 3.4 g/dL (3.4-5.0); ALKALINE PHOSPHATASE 39 U/L (46-116); ALT (SGPT) 17 U/L (10-68); BILIRUBIN - TOTAL 0.29 mg/dL (0.2-1.3); CALC OSMOLALITY 284 mosm/kg (275-300); CALCIUM 8.4 mg/dL (8.5-10.1); CARBON DIOXIDE 31.2 mmol/L (21.0-32.0); CHLORIDE - SERUM 104 mmol/L (98-107); GLUCOSE 158 mg/dL (74-106); POTASSIUM - SERUM 4.4 mmol/L (3.5-5.1); SODIUM 140 mmol/L (136-145); UREA NITROGEN 22 mg/dL (7-18); eGFR NON AFRICAN AMERICAN 57 mL/min (90-120)
[2018-02-19 11:38] LABS: CREATINE KINASE 34 UL (21-215); TROPONIN-I 0.017 ng/mL (0.000-0.060)
[2018-02-19 14:36] VITALS: BP 112/51
== END 2018-02-19 14:36 | disposition home or self-care (01) ==
LOC: D.ER 10:04
PROVIDERS: Family Medicine
DX: R55 Syncope and collapse (principal); R07.9 Chest pain, unspecified; E11.9 Type 2 diabetes mellitus without complications; I10 Essential (primary) hypertension

== ENCOUNTER → 2018-02-22 16:44 | Outpatient (CLI) | payer MEDICARE, OTHER ==
[2018-02-19 10:06] VITALS: BMI 40.3
== END | disposition home or self-care (01) ==
LOC: D.CT 09:30
DX: I65.23 Occlusion and stenosis of bilateral carotid arteries (principal)

== ENCOUNTER 2018-05-13 11:21 | Inpatient (IN) | payer MEDICARE, OTHER ==
[~2018-05-13] VITALS: Ht 157.5 cm; Wt 97.3 kg
[2018-05-13] VITALS (10 sets, daily range): BP systolic 122–215; BP diastolic 37–81; Ht 157.5 cm; Wt 97.3 kg
--- NOTE | ~2018-05-13 | EC ---
PATIENT:FLY ALMAZAN DATE OF SERVICE: 05/13/18 SEX: F MEDICAL RECORD: [id number] DATE OF : 36 LOCATION:D.M2 D.212 AGE OF PATIENT: 77 ADMISSION DATE: 05/13/18 REFERRING PHYSICIAN: INTERPRETING PHYSICIAN: NATHEN OLVERA MD ECHOCARDIOGRAM REPORT ECHO CHARGES 4 ECHO COMPLETE Date: 05/14/18 CLINICAL DIAGNOSIS: CAD/HTN ECHOCARDIOGRAPHIC MEASUREMENTS (adult normal given) AC root (d.<3.7cm) 2.9 cm LV Septum d (<1.2 cm> 1.3 cm Valve Excursion 1.2 cm LV Septum (systole) 1.9 cm Left Atria (s.<4.0cm> 3.1 cm LVPW d(<1.2cm) 1.2 cm RV (d.<2.3cm) 3.1 cm LVPW (sytole) 2.2 cm LV diastole(<5.6CM) 5.1 cm MV E-F(>70mm/sec) cm LV systole 2.6 cm LVOT Diameter 1.6 cm MV exc.(>10mm) cm Est.ejection fraction (50-75%) % DOPPLER: LVIT cm/sec A 80.0 cm/sec E 116 cm/sec LA cm/sec RVSP 38.3 mmHg LVOT 151 cm/sec AOP1/2T m/s Asc. Ao 198 cm/sec RVOT 52.0 cm/sec RA cm/sec PA 115 cm/sec AV Gradient Peak 16.0 mmHg AV Mean 8.8 mmHg AV Area 1.5 cm MV Gradient Peak 7.8 mmHg MV Mean 2.6 mmHg MV Area cm COMMENTS: Sales Data Analyst: Kizzy PATTENOE Cook Short Order: 3 Dr. Whitfield TAPE# PACS Pericardial Effusion N DATE OF SERVICE: Adequate 2D echo, color flow and spectral Doppler, and M-mode. LVH is present. LV internal wall dimension is normal. Wall motion is normal. EF is greater than or equal to 55%. Aortic valve is tricuspid. No evidence of stenosis on Doppler interrogation. Left atrium is normal at 3.0 cm. Mitral valve shows no prolapse. Mild MR. Right-sided chambers appear normal. Moderate TR. RV systolic pressure is estimated greater than or equal to 30 mmHg via the continuity equation. ECHOCARDIOGRAM REPORT [id number] FLY ALMAZAN TRANSINT:[id number] Voice Confirmation ID: [id number] DOCUMENT ID: [id number] NATHEN OLVERA MD at 0829 CC: [id number] DICTATION DATE: 05/14/18 1039 SUPERVISOR OPEN HEARTH STOCKYARD: 05/14/18 1258 ADM IN [facility] [address] [id number]
[2018-05-13] MEDS ORDERED: EFFIENT10 MG PO (11:38)
[2018-05-13 11:53] LABS: BASOPHILS 0.3 % (0-2); EOSINOPHILS 1.3 % (0-7); HEMATOCRIT 36.9 % (36.0-48.0); HEMOGLOBIN 10.9 g/dL (12-16); IMMATURE GRANULOCYTES 0.1 % (0-5); LYMPHOCYTES 32.2 % (15-50); MCH 23.2 pg (26.0-34.0); MCHC 29.5 g/dL (31.0-37.0); MCV 78.5 fL (80.0-100.0); MEAN PLATELET VOLUME 10.6 fL (7.4-10.4); MONOCYTES 7.6 % (2-11); NEUTROPHILS 58.5 % (40-80); PLATELET COUNT 116 10x3/uL (130-400); RDW 16.7 % (11.5-14.5); WBC 7.7 10x3/uL (4.8-10.8)
[2018-05-13 12:07] LABS: ALBUMIN 3.1 g/dL (3.4-5.0); ALKALINE PHOSPHATASE 55 U/L (46-116); ALT (SGPT) 18 U/L (10-68); BILIRUBIN - TOTAL 0.42 mg/dL (0.2-1.3); CALC OSMOLALITY 290 mosm/kg (275-300); CALCIUM 8.6 mg/dL (8.5-10.1); CARBON DIOXIDE 26.8 mmol/L (21.0-32.0); CHLORIDE - SERUM 102 mmol/L (98-107); POTASSIUM - SERUM 4.7 mmol/L (3.5-5.1); PROTEIN - SERUM 6.2 g/dL (6.4-8.2); SODIUM 138 mmol/L (136-145); UREA NITROGEN 27 mg/dL (7-18); eGFR NON AFRICAN AMERICAN 57 mL/min (90-120)
[2018-05-13 12:09] LABS: GLUCOSE 276 mg/dL (74-106)
[2018-05-13 12:17] LABS: CKMB 1.3 U/L (0.0-3.6); CREATINE KINASE 44 UL (21-215); PRO BNP 1781 pg/mL (0-450)
[2018-05-13 12:18] LABS: TROPONIN-I < 0.017 ng/mL (0.000-0.060)
[2018-05-14 00:38] VITALS: BP 181/62
[2018-05-14 05:27] LABS: BASOPHILS 0.3 % (0-2); EOSINOPHILS 1.9 % (0-7); HEMATOCRIT 36.1 % (36.0-48.0); HEMOGLOBIN 10.8 g/dL (12-16); IMMATURE GRANULOCYTES 0.1 % (0-5); LYMPHOCYTES 47.3 % (15-50); MCH 23.2 pg (26.0-34.0); MCHC 29.9 g/dL (31.0-37.0); MCV 77.5 fL (80.0-100.0); MEAN PLATELET VOLUME 10.6 fL (7.4-10.4); MONOCYTES 7.8 % (2-11); NEUTROPHILS 42.6 % (40-80); RBC 4.66 10x6/uL (4.00-5.40); RDW 16.8 % (11.5-14.5); WBC 7.4 10x3/uL (4.8-10.8)
[2018-05-14 05:34] LABS: PLATELET COUNT 190 10x3/uL (130-400)
[2018-05-14 05:35] LABS: CALCIUM 8.8 mg/dL (8.5-10.1); CARBON DIOXIDE 30.8 mmol/L (21.0-32.0); CREATININE - SERUM 0.8 mg/dL (0.6-1.3)
[2018-05-14 05:38] LABS: POTASSIUM - SERUM 3.8 mmol/L (3.5-5.1)
[2018-05-14 06:36] VITALS: BP 178/60
[2018-05-14 08:23] VITALS: BP 186/77
[2018-05-14 11:21] VITALS: BP 141/68
[2018-05-14 15:41] VITALS: BP 147/58
[2018-05-14 20:00] VITALS: BP 179/59
[2018-05-15] VITALS: BP 163/45
[2018-05-15 04:00] VITALS: BP 152/45
[2018-05-15 06:23] LABS: BASOPHILS 0.3 % (0-2); EOSINOPHILS 2.3 % (0-7); HEMATOCRIT 36.3 % (36.0-48.0); HEMOGLOBIN 10.7 g/dL (12-16); IMMATURE GRANULOCYTES 0.1 % (0-5); LYMPHOCYTES 41.4 % (15-50); MCH 23.1 pg (26.0-34.0); MCHC 29.5 g/dL (31.0-37.0); MCV 78.4 fL (80.0-100.0); MEAN PLATELET VOLUME 10.4 fL (7.4-10.4); MONOCYTES 7.6 % (2-11); NEUTROPHILS 48.3 % (40-80); PLATELET COUNT 194 10x3/uL (130-400); RBC 4.63 10x6/uL (4.00-5.40); RDW 16.9 % (11.5-14.5); WBC 6.9 10x3/uL (4.8-10.8)
[2018-05-15 06:32] LABS: ANION GAP 8.2 mmol/L (8-16); CALCIUM 8.3 mg/dL (8.5-10.1); CARBON DIOXIDE 30.9 mmol/L (21.0-32.0); CREATININE - SERUM 0.8 mg/dL (0.6-1.3); POTASSIUM - SERUM 4.1 mmol/L (3.5-5.1)
[2018-05-15 08:00] VITALS: BP 132/74
[2018-05-15 11:40] VITALS: BP 128/48
[2018-05-15 16:11] VITALS: BP 194/68
[2018-05-15 16:55] LABS: IRON 45 ug/dl (35-150)
[2018-05-15 16:56] LABS: % SATURATION 10 % (15-55); TOTAL IRON BIND CAPACITY 411 ug/dl (260-445); UNSAT IRON BIND CAPACITY 366 ug/dl (150-375)
[2018-05-15 20:21] VITALS: BP 114/66
[2018-05-16] VITALS: BP 107/59
[2018-05-16 05:11] LABS: BASOPHILS 0.3 % (0-2); EOSINOPHILS 1.8 % (0-7); HEMATOCRIT 36.5 % (36.0-48.0); HEMOGLOBIN 10.9 g/dL (12-16); IMMATURE GRANULOCYTES 0.3 % (0-5); LYMPHOCYTES 37.6 % (15-50); MCH 23.3 pg (26.0-34.0); MCHC 29.9 g/dL (31.0-37.0); MONOCYTES 8.6 % (2-11); NEUTROPHILS 51.4 % (40-80); PLATELET COUNT 180 10x3/uL (130-400); RBC 4.68 10x6/uL (4.00-5.40); RDW 16.8 % (11.5-14.5); WBC 7.9 10x3/uL (4.8-10.8)
[2018-05-16 05:23] LABS: CALC OSMOLALITY 281 mosm/kg (275-300); CALCIUM 8.6 mg/dL (8.5-10.1); CARBON DIOXIDE 28.9 mmol/L (21.0-32.0); CHLORIDE - SERUM 103 mmol/L (98-107); CREATININE - SERUM 0.7 mg/dL (0.6-1.3); GLUCOSE 142 mg/dL (74-106); POTASSIUM - SERUM 3.6 mmol/L (3.5-5.1); SODIUM 139 mmol/L (136-145); UREA NITROGEN 18 mg/dL (7-18); eGFR NON AFRICAN AMERICAN 85 mL/min (90-120)
[2018-05-16] MEDS ORDERED: ELIQUIS5 MG PO ×2 (11:08→11:12)
[2018-05-16 11:52] VITALS: BP 179/59
[2018-05-16 12:17] LABS: ACLA - IGG AB <9 GPL U/mL (0-14); ACLA - IGM AB 110 MPL U/mL (0-12)
[2018-05-16] MEDS ORDERED: IPRAT-ALBUT 0.5-3 ML UPD (15:37)
[2018-05-17 09:18] LABS: FOLATE (FOLIC ACID) - SERUM 8.6 ng/mL (>3.0)
[2018-05-17 11:19] LABS: LUPUS - INTERPRETATION Comment: (()); LUPUS - THROMBIN TIME 17.5 sec (0.0-23.0); LUPUS - dRVVT 27.3 sec (0.0-47.0); PROTEIN S - FREE 62 % (57-157); PROTEIN S - TOTAL 54 % (60-150)
[2018-05-18 13:18] LABS: PROTEIN C - ANTIGEN 96 % (60-150); PROTEIN C - FUNCTIONAL 107 % (73-180)
[2018-05-21 18:09] LABS: FACTOR II DNA ANALYSIS Negative (())
== END 2018-05-16 16:08 | disposition home or self-care (01) | DRG 176 ==
LOC: D.ER 11:21 → D.M2 17:32
PROVIDERS: Emergency Medicine; Family Medicine; Internal Medicine Nephrology; Internal Medicine Pulmonary Disease
DX: I26.99 Other pulmonary embolism without acute cor pulmonale (principal); I50.22 Chronic systolic (congestive) heart failure; N17.9 Acute kidney failure, unspecified; R00.1 Bradycardia, unspecified; I48.91 Unspecified atrial fibrillation; I25.10 Atherosclerotic heart disease of native coronary artery without angina pectoris; G47.33 Obstructive sleep apnea (adult) (pediatric); I11.0 Hypertensive heart disease with heart failure; E11.9 Type 2 diabetes mellitus without complications; J44.9 Chronic obstructive pulmonary disease, unspecified; D50.9 Iron deficiency anemia, unspecified; E78.5 Hyperlipidemia, unspecified; Z87.891 Personal history of nicotine dependence

== ENCOUNTER → 2018-06-21 06:17 | Outpatient (CLI) | payer MEDICARE, OTHER ==
[~2018-06-21] VITALS: Ht 157.5 cm; Wt 100.0 kg
--- NOTE | ~2018-06-21 | HEMODYNAMI ---
PATIENT:FLY ALMAZAN MEDICAL RECORD: [id number] : 36 LOCATION:[facility] ADMISSION DATE: 06/21/18 Generatedon:06/21/20188:49 Patient name: FLY ALMAZAN Patient #: [id number] SSN: D OB: 1940 Date of study: 06/21/2018 Page: Of Hemodynamic Procedure Report Patient Data Patient Demographics Procedure consent was obtained First Name: FLY Gender: Female Last Name: NORAH : 1940 Middle Initial: J Age: 77 year(s) Patient #: [id number] Race: Unknown Additional ID: [id number] Contact details Address: [address] [place] [address] State: [place] City: [place] Zip code: [address] Past Medical History Allergies Allergen Reaction Date Comments Reported Other allergy 09/27/2017 ARTHROTEC, CYMBALTA Other allergy 01/21/2018 metoclopramide HCL, Other allergy 06/21/2018 Sotolol, Reglan, Arthrotec, Cymbalta, Gabapentin Admission Admission Data Admission Date: 06/21/2018 Admission Time: 6:17 Height (in.): 62 BSA: 1.99 (m2) Height (cm.): 157.48 BMI: 40.24 (kg/m2) Weight (lbs.): 220 Weight (kg.): 99.79 Lab Results Lab Result Date: 06/21/2018 Lab Result Time: 7:00 Biochemistry Name Units Result Min Max BUN mg/dl 25 --(----)-* 7 18 Creatinine mg/dl 0.9 --(-*--)-- 0.6 1.3 CBC Name Units Result Min Max Hematocrit % 34.9 *-(----)-- 42 54 Hemoglobin g/dl 10.2 *-(----)-- 13.5 17.5 Procedure Procedure Types Cath Procedure Diagnostic Procedure LHC LHC w/Coronaries Sedation Charges Moderate Sedation up to 30 minutes Procedure Description Procedure Date Procedure Date: 06/21/2018 Procedure Start Time: 8:07 Procedure End Time: 8:46 Procedure Staff Name Function Thea Pedro RN Baby Attendant Garrett Cota MD Performing Physician Ene Prado RT Scrub Heather Camacho RN Nurse Marquise Ham RT Monitor Procedure Data Cath Procedure Fluoroscopy Diagnostic fluoroscopy Total fluoroscopy Time: 2.1 time: 2.1 min min Diagnostic fluoroscopy Total fluoroscopy dose: 743 dose: 743 mGy mGy Contrast Material Contrast Material Type Amount (ml) Isovue 300 60 Entry Location Entry Primary Successful Side Size Upsize Upsize Entry Closure Succes sful Closure Location (Fr) 1 (Fr) 2 (Fr) Remarks Device Remarks Femoral Right 5 Fr Exoseal artery Estimated blood loss: 5 ml Diagnostic catheters Device Type Used For End Catheter Placement MULTIPACK JL 4.0 5Fr Procedure catheter MULTIPACK 3DRC 5Fr Procedure catheter MULTIPACK Pigtail 5 Fr Procedure catheter Procedure Complications No complications Procedure Medications Medication Administration Route Dosage 0.9% NaCl I.V. 100 ml/hr Oxygen etCO2 Nasal cannula 2 l/min Lidocaine 2% added to field 20 Heparin Flush Bag added to field 2 bags (1000units/500ml NS) Versed I.V. 2 mg Fentanyl I.V. 75 mcg Versed I.V. 1 mg Versed I.V. 1 mg Hemodynamics Rest BSA: 1.99 (m2) HGB: 10.2 (g/dl) O2 Consumption: Estimated: 169.37 (ml/min) O2 Co nsumption indexed: Estimated:85.11 (ml/min/m) Heart Rate: 57 (bpm) Pressure Samples Time Site Value (mmHg) Purpose Heart Use Rate(bpm) 8:24 LV 132/16,24 Snapshot 52 8:24 LV 132/19,24 Pullback 47 8:24 AO 129/47(75) Pullback 47 Gradients Valve Time Site 1 Site 2 Mean SEP/DFP Peak To Heart Use (mmHg) (sec/min) Peak Rate (mmHg) (bpm) Aortic 8:24 LV AO 10 7 3 47 132/19,24 129/47(75) Calculations Valve P-P Mean Valve Index Valve Source Name Gradient Area Flow (cm2) Aortic 3 10 3 10 Snapshots Pre Cath Intra NCS Post Cath Vital Signs Time Heart Resp SPO2 etCO2 NIBP (mmHg) Rhythm Pain Sedation Rate (ipm) (%) (mmHg) Status Level (bpm) 7:53:02 59 19 100 27 220/99(169) SB 0 (11) 10(A) , No pain 7:57:59 56 12 98 28 197/83(154) SB 0 (11) 10(A) , No pain 8:02:36 54 11 97 30 154/73(128) SB 0 (11) 10(A) , No pain 8:07:14 53 8 98 26 159/73(126) SB 0 (11) 10(A) , No pain 8:11:55 53 11 96 28 157/70(118) SB 0 (11) 9(A) , No pain 8:16:35 51 11 97 27 168/70(119) SB 0 (11) 9(A) , No pain 8:21:14 51 11 98 28 156/69(113) SB 0 (11) 9(A) , No pain 8:25:53 52 11 98 28 152/75(133) SB 0 (11) 9(A) , No pain 8:30:29 53 12 99 27 158/76(122) SB 0 (11) 9(A) , No pain 8:35:10 52 12 97 30 166/72(125) SB 0 (11) 10(A) , No pain 8:39:42 52 11 98 30 162/80(119) SB 0 (11) 9(A) , No pain 8:44:18 52 10 98 29 166/73(130) SB 0 (11) 10(A) , No pain Medications Time Medication Route Dose Verified Delivered Reason Notes Effe ctiveness by by 7:34:17 0.9% NaCl I.V. 100 Buffie Heather used for ml/hr Mayela Camacho backup sawyer 7:34:25 Oxygen etCO2 2 Buffie Heather used for Nasal l/min Mayela Camacho procedure cannula RN 7:34:30 Lidocaine 2% added 20ml Buffie Garrett for local to vial Mayela Cota MD anesthetic field 7:34:35 Heparin Flush added 2 Buffie Garrett used for Bag to bags Mayela Cota MD procedure (1000units/500ml field NS) 8:03:50 Versed I.V. 2 mg Buffie Heather for Mayela Camacho sedation RN 8:04:06 Fentanyl I.V. 75 Thea Kennedyyla for mcg Mayela Camacho sedation RN 8:09:47 Versed I.V. 1 mg Thea Kennedyyla for Mayela Camacho sedation RN 8:36:10 Versed I.V. 1 mg Thea Kennedyyla for Mayela zuleta manager heavy duty Log Time Note 7:32:09 Diagnostic Cath status Elective 7:32:11 Thea Pedro RN sent for patient. Start room use. 7:32:12 Time tracking: Regular hours (M-F 7:00 - 5:00) 7:32:16 Plan of Care:Hemodynamics will remain stable., Cardiac rhythm will remain stable., Comfort level will be maintained., Respiratory function will remain adequate., Patient/ family verbilizes understanding of procedure., Procedure tolerated without complication., Recovers from procedure without complications.. 7:32:20 Signed procedure consent form obtained from patient. 7:34:17 0.9% NaCl 100 ml/hr I.V. was administered by eHather Camacho RN; used for procedure; 7:34:25 Oxygen 2 l/min etCO2 Nasal cannula was administered by Heather Camacho RN; used for procedure; 7:34:30 Lidocaine 2% 20ml vial added to field was administered by Garrett Cota MD; for local anesthetic; 7:34:35 Heparin Flush Bag (1000units/500ml NS) 2 bags added to field was administered by Garrett Cota MD; used for procedure; 7:34:48 H&P Date Dictated: 06/19/2018 Within 30 days and on chart., H&P Addendum completed by physician on day of procedure. (MUST COMPLETE FOR ALL OUTPATIENTS). 7:34:56 Patient Height : 62 inches 7:34:58 Patient Weight : 220 lbs 7:41:46 Patient received from Pre/Post Procedure Room to CCL 1 Alert and oriented. Tansferred to table in Supine position. 7:41:47 Warm blankets applied, and jose hugger turned on for patient comfort. 7:41:48 Correct patient and procedure confirmed by team. 7:41:49 ECG and BP/O2 sat monitors applied to patient. 7:48:20 Vital chart was started 7:57:31 Baseline sample Acquired. 7:58:19 Baseline sample Acquired. 7:58:39 Rhythm: atrial fibrillation 7:58:42 Full Disclosure recording started 7:58:45 Pre-procedure instructions explained to patient. 7:58:46 Pre-op teaching completed and patient verbalized understanding. 7:58:47 Family in waiting room. 7:58:48 Patient NPO since Midnight. 8:01:10 Patient allergic to Other allergySotolol, Reglan, Arthrotec, Cymbalta, Gabapentin 8:01:13 Is the patient allergic to Iodine/contrast media? No. 8:01:14 Is patient on blood thinner?Yes 8:01:20 ACC The patient was administered the following blood thiners within the last 24 hours: ACCEffient 8:01:35 Patient diabetic? Yes. 8:01:36 If diabetic: On Metformin? No 8:01:39 Snore? Yes 8:01:39 Previous problem with sedation/anesthesia? No ? 8:01:40 Sleep apnea? No 8:01:41 Opens mouth fully? Yes 8:01:41 Deviated septum? No 8:01:42 Sticks out tongue? No 8:01:45 Airway obstruction? Yes COPD 8:01:50 Dentures? No ? 8:01:57 Pre procedure: right dorsailis pedis pulse 2+ Normal; easily identifiable; not easily obliterated 8:01:59 Patient pain scale 0/10 ?. 8:02:08 IV patent on arrival in left antecubital with 0.9% NaCl at [facility]. 8:02:34 Lab Result : Hemoglobin 10.2 g/dl 8:02:34 Lab Result : Hematocrit 34.9 % 8:02:34 Lab Result : BUN 25 mg/dl 8:02:34 Lab Result : Creatinine 0.9 mg/dl 8:02:36 Lab results completed and on chart. 8:02:38 Right groin area was prepped with chlora-prep and draped in sterile fashion 8:02:39 Sharps counted by scrub and verified by R.N. 8:02:39 Alarms reviewed by R. N. 8:02:42 Use device set Femoral Dx 8:02:43 Bag Decanter () opened to sterile field. 8:02:43 ACIST Syringe (09622) opened to sterile field. 8:02:46 ACIST Hand Control (89458) opened to sterile field. 8:02:46 Medline Cath Pack ([id number]) opened to sterile field. 8:02:47 ACIST Manifold (10324) opened to sterile field. 8:02:48 Tegaderm 4 x 4 (1626W) opened to sterile field. 8:02:50 DIAGNOSTIC WIRE .035 260cm J wire ([id number]) opened to sterile field. 8:02:51 DIAGNOSTIC Multipack 5Fr catheter set ([id number]) opened to sterile field. 8:03:00 SHEATH 5FR Richmond ([id number]) opened to sterile field. 8:03:06 Physician arrived 8:03:07 Final Timeout: patient, procedure, and site verified with staff and physician. All members of the team are in agreement. 8:03:07 --------ALL STOP TIME OUT------ 8:03:09 Right groin site verified by team. 8:03:14 Physical assessment completed. ASA score P 2 - A patient with mild systemic disease as per Garrett Cota MD. 8:03:19 Sedation plan: IV Moderate Sedation Medication:Versed, Fentanyl 8:03:50 Versed 2 mg I.V. was administered by Heather Camacho RN; for sedation; 8:04:06 Fentanyl 75 mcg I.V. was administered by Heather Camacho RN; for sedation; 8:04:13 Zero performed for pressure channel P1 8:07:00 Procedure started. 8:07:03 Local anesthetic to right femoral artery with Lidocaine 2% by Garrett Cota MD.INITIAL ACCESS ONLY 8:07:45 A 5 Fr sheath was inserted into the Right Femoral artery 8::47 Versed 1 mg I.V. was administered by Heather Camacho RN; for sedation; 8:12:42 A MULTIPACK JL 4.0 5Fr catheter was advanced over the wire and used for Procedure. 8:13:09 LCA angiography performed. 8:13:45 Catheter exchanged over wire. 8:14:31 A MULTIPACK 3DRC 5Fr catheter was advanced over the wire and used for Procedure. 8:14:51 RCA angiography performed. 8:22:47 Catheter exchanged over wire. 8:23:49 A MULTIPACK Pigtail 5 Fr catheter was advanced over the wire and used for Procedure. 8:24:10 LV hemodynamics recorded. 8:24:11 LV gram done using SARABIA 8:24:14 Injector settings: Ml/sec: 10, Volume: 20, 8:24:19 EF : 60 % 8:24:31 Catheter removed. 8:26:06 EXOSEAL 5Fr (EX500) opened to sterile field. 8:36:10 Versed 1 mg I.V. was administered by Heather Camacho RN; for sedation; 8:42:27 Sheath removed intact; hemostasis achieved with Exoseal to the Right Femoral artery. 8:42:29 Procedure ended.(Physican Out) 8:45:17 Fluoroscopy time 02.10 minutes. 8:45:20 Fluoroscopy dose: 743 mGy 8:45:20 Flurop Dose total: 743 8:45:24 Contrast amount:Isovue 300 60ml. 8:45:25 Sharps counted by scrub and verified by R.N. 8:45:27 Insertion/operative site no bleeding no hematoma. 8:45:29 Post-op/insertion site Right Femoral artery dressed using a 4 x 4 and Tegaderm. 8:45:32 Post right femoral artery:stable, soft, clean and dry 8:45:34 Post Procedure Pulses reassessed and unchanged 8:45:36 Post-procedure physical assessment completed. ASA score P 2 - A patient with mild systemic disease as per Garrett Cota MD. 8:45:42 Post procedure rhythm: unchanged. 8:45:44 Estimated blood loss: 5 ml 8:45:46 Patient needs reinforcement of post procedure teaching. 8:45:46 Post procedure instruction explained to patient.Patient verbalizes understanding. 8:46:01 Procedure type changed to Cath procedure, Diagnostic procedure, LHC, LHC w/Coronaries, Sedation Charges, Moderate Sedation up to 30 minutes 8:46:19 Procedure and supply charges have been captured, reviewed, submitted and are correct. 8:46:21 Procedure Complication : No complications 8:46:23 See physician's report for complete and final results. 8:46:23 Vital chart was stopped 8:46:24 Report given to Pre/Post Procedure Room. 8:46:27 Patient transfered to Pre/Post Procedure Room with Stretcher. 8:46:29 Full Disclosure recording stopped 8:46:29 Procedure ended. 8:46:39 End room use (Document Last) Device Usage Item Name Manufacture Quantity Catalog Hospital Part Current Minimal L ot# / Number Charge Number Stock Stock Serial# Code ACIST Acist 1 90781 403376 049367 663874 20 Syringe Medical (97280) Systems Inc Bag Microtek 1 2001S 108560 29214 750031 5 Decanter Medical Inc. (2001S) Medline Medline 1 [id number] 201563 30359 448580 5 Cath Pack ([id number]) ACIST Hand Acist 1 46780 623323 807265 771056 5 Control Medical (63034) Systems Inc ACIST Acist 1 98651 269981 287613 874194 5 Manifold Medical (06060) Systems Inc Tegaderm 4 3M 1 1626W 337590 205071 203672 5 x 4 (1626W) DIAGNOSTIC St Cesar 1 552288 862738 963956 005993 30 WIRE .035 260cm J wire (467751) DIAGNOSTIC Cardinal 1 [id number] 139357 73693 302058 30 Multipack Health 5Fr catheter set (IS6252) SHEATH 5FR Terumo 1 XOU761 882386 938876 849990 40 [place] (HAU864) MULTIPACK Cardinal 1 587430 5 JL 4.0 5Fr Health catheter MULTIPACK Cardinal 1 043626 5 3DRC 5Fr Health catheter MULTIPACK Cardinal 1 570326 5 Pigtail 5 Health Fr catheter EXOSEAL 5Fr Cardinal 1 EX500 628710 265408 190196 10 (EX500) Health Signature Audit Coker Stage Time Signature Unsigned Intra-Procedure 06/21/2018 Marquise Ham 8:49:08 AM RT(R) Signatures Monitor : Marquise Ham RT Signature : Date : Time : [facility] [address] [place] [address]
[~2018-06-21 06:17] MED LIST changes: +EFFIENT10 MG PO; +ELIQUIS5 MG PO; +IPRAT-ALBUT 0.5-3 ML UPD; +ROBAXIN500 MG PO
[2018-06-21 06:55] VITALS: BP 156/50; Ht 157.5 cm; Wt 100.0 kg
[2018-06-21 07:11] LABS: BASOPHILS 0.3 % (0-2); EOSINOPHILS 1.1 % (0-7); HEMATOCRIT 34.9 % (36.0-48.0); HEMOGLOBIN 10.2 g/dL (12-16); IMMATURE GRANULOCYTES 0.2 % (0-5); LYMPHOCYTES 31.7 % (15-50); MCH 22.9 pg (26.0-34.0); MCHC 29.2 g/dL (31.0-37.0); MCV 78.3 fL (80.0-100.0); MEAN PLATELET VOLUME 10.2 fL (7.4-10.4); MONOCYTES 7.6 % (2-11); NEUTROPHILS 59.1 % (40-80); PLATELET COUNT 190 10x3/uL (130-400); RBC 4.46 10x6/uL (4.00-5.40); RDW 17.1 % (11.5-14.5); WBC 8.9 10x3/uL (4.8-10.8)
[2018-06-21 07:17] LABS: ANION GAP 9.5 mmol/L (8-16); CALCIUM 8.8 mg/dL (8.5-10.1); CARBON DIOXIDE 30.4 mmol/L (21.0-32.0); CREATININE - SERUM 0.9 mg/dL (0.6-1.3); POTASSIUM - SERUM 3.9 mmol/L (3.5-5.1)
== END | disposition home or self-care (01) ==
LOC: D.CATH 06:17
PROVIDERS: Internal Medicine Cardiovascular Disease
DX: I25.119 Atherosclerotic heart disease of native coronary artery with unspecified angina pectoris (principal); T82.855A Stenosis of coronary artery stent, initial encounter; Z01.812 Encounter for preprocedural laboratory examination

== ENCOUNTER → 2018-07-09 12:21 | Outpatient (CLI) | payer MEDICARE, OTHER ==
[2018-06-21 06:55] VITALS: BMI 40.3
== END | disposition home or self-care (01) ==
LOC: D.HCCARDIO 12:21
DX: I25.10 Atherosclerotic heart disease of native coronary artery without angina pectoris (principal)

== ENCOUNTER → 2018-08-24 08:10 | Outpatient (CLI) | payer MEDICARE, OTHER ==
[2018-06-21 06:55] VITALS: BMI 40.3
[2018-08-24 10:07] LABS: CREATININE - SERUM 0.9 mg/dL (0.6-1.3)
== END | disposition home or self-care (01) ==
LOC: D.RT 08:00
PROVIDERS: Internal Medicine Pulmonary Disease
DX: R07.9 Chest pain, unspecified (principal); J44.9 Chronic obstructive pulmonary disease, unspecified

== ENCOUNTER → 2019-02-18 13:01 | Outpatient (CLI) | payer MEDICARE, OTHER ==
[2018-06-21 06:55] VITALS: BMI 40.3
== END | disposition home or self-care (01) ==
LOC: D.RAD 13:01
PROVIDERS: ATTEND Internal Medicine Pulmonary Disease
DX: J20.9 Acute bronchitis, unspecified (principal)

== ENCOUNTER → 2019-04-02 12:35 | Outpatient (CLI) | payer MEDICARE, OTHER ==
[2018-06-21 06:55] VITALS: BMI 40.3
[~2019-04-02 12:35] MED LIST changes: +ANTIVERT12.5 MG PO; +K-DUR20 MEQ PO; +LANTUS SOL100 UNIT/1 SC; +LASIX80 MG PO; +METOLAZONE5 MG PO
== END | disposition home or self-care (01) ==
LOC: D.HCCARDIO 12:30
PROVIDERS: ATTEND Internal Medicine Cardiovascular Disease
DX: I50.9 Heart failure, unspecified (principal)

== ENCOUNTER 2019-05-08 11:03 | Outpatient (CLI) | payer MEDICARE, OTHER ==
[~2019-05-08] VITALS: Ht 157.5 cm; Wt 91.4 kg
--- NOTE | ~2019-05-08 | HEMODYNAMI ---
PATIENT:FLY ALMAZAN MEDICAL RECORD: [id number] : 36 LOCATION:[facility] ADMISSION DATE: 05/08/19 Generatedon:05/08/201915:42 Patient name: FLY ALMAZAN Patient #: [id number] SSN: [id number] : 1940 Date of study: 05/08/2019 Page: Of Hemodynamic Procedure Report Patient Data Patient Demographics Procedure consent was obtained First Name: FLY Gender: Female Last Name: NORAH : 1940 [facility] Initial: J Age: 78 year(s) Patient #: [id number] Race: SSN: [id number] Additional ID: [id number] Contact details [address]: [address] [place] [address] State: [place] City: [place] Zip code: [address] Past Medical History Allergies Allergen Reaction Date Comments Reported Other 09/27/2017 ARTHROTEC, CYMBALTA allergy Other 01/21/2018 metoclopramide HCL, allergy Other 06/21/2018 Sotolol, Reglan, Arthrotec, Cymbalta, Gabapentin allergy Other 05/08/2019 arthrotec,reglan,calamine,sotalol,cynbalta,gabape ntin allergy Admission Admission Data Admission Date: 05/08/2019 Admission Time: 11:03 Arrival Date: 05/08/2019 Arrival Time: 14:00 Insurance Payor: Private health insurance, Medicare [facility] #: [id number] Lab Results Lab Result Date: 05/08/2019 Lab Result Time: 0:00 Biochemistry Name Units Result Min Max BUN mg/dl 31 --(----)-* 7 18 Creatinine mg/dl 1.2 --(---*)-- 0.6 1.3 CBC Name Units Result Min Max Hemoglobin g/dl 11.8 *-(----)-- 13.5 17.5 Procedure Procedure Types Cath Procedure Diagnostic Procedure Right Heart Right Heart Cath Sedation Charges Moderate Sedation up to 15 minutes Procedure Description Procedure Date Procedure Date: 05/08/2019 Procedure Start Time: 15:11 Procedure End Time: 15:40 Procedure Staff Name Function Garrett Cota MD Performing Physician Xiomara Jordan RT Monitor Maryjane Cohen RT Monitor Heather Camacho RN Nurse Tammi Douglas RT Scrub Procedure Data Cath Procedure Fluoroscopy Diagnostic fluoroscopy Total fluoroscopy Time: 2.7 time: 2.7 min min Diagnostic fluoroscopy Total fluoroscopy dose: 162 dose: 162 mGy mGy Contrast Material Contrast Material Type Amount (ml) Isovue 300 0 Entry Location Entry Primary Successful Side Size Upsize Upsize Entry Closure [place] ccessful Closure Location (Fr) 1 (Fr) 2 (Fr) Remarks Device Remarks Femoral Right 7 Fr Manual vein Short Compression Estimated blood loss: 5 ml Diagnostic catheters Device Type Used For End Catheter Placement SWAN 7Fr Thermodilution Procedure cather (131F7P) Procedure Complications No complications Procedure Medications Medication Administration Route Dosage 0.9% NaCl I.V. 100 ml/hr Oxygen etCO2 Nasal cannula 2 l/min Lidocaine 2% added to field 20 Versed I.V. 2 mg Fentanyl I.V. 50 mcg Adenosine IV 3mg/ml I.V. 50 mcg/kg/min Adenosine IV 3mg/ml I.V. 100 mcg/kg/min Adenosine IV 3mg/ml I.V. 150 mcg/kg/min Hemodynamics Rest HGB: 11.8 (g/dl) Heart Rate: 62 (bpm) Oxygen Saturations Time Location Saturations Hgb (g/dl) O2 Content Use (%) (ml/L) 15:31 RV 68.7 15:32 RA 59.4 Pressure Samples Time Site Value (mmHg) Purpose Heart Use Rate(bpm) 15:17 PA 52/17(29) Snapshot 56 15:17 PA 51/17(29) Snapshot 56 15:17 PCW 12/12(10) Snapshot 57 15:27 RV 42/4,9 Snapshot 57 15:28 RA 9/8(7) Snapshot 59 Calculations Content (ml/l) O2 Difference (ml/l) O2 MV 95.33 PV-PA(VA) Snapshots Pre Cath Intra NCS Post Cath Vital Signs Time Heart Resp SPO2 etCO2 NIBP (mmHg) Rhythm Pain Sedation Rate (ipm) (%) (mmHg) Status Level (bpm) 14:58:44 59 13 96 41.9 Measuring SB 0 (11) 10(A) , No pain 14:59:07 60 19 97 26.2 214/88(164) NSR 0 (11) 10(A) , No pain 15:03:45 59 18 97 12 183/69(126) SB 0 (11) 10(A) , No pain 15:08:12 57 12 97 12 163/71(120) SB 0 (11) 10(A) , No pain 15:12:28 57 18 100 35 174/79(141) SB 0 (11) 10(A) , No pain 15:16:50 56 16 99 1.4 182/73(130) SB 0 (11) 10(A) , No pain 15:21:16 54 11 97 0 157/68(128) SB 0 (11) 10(A) , No pain 15:25:32 57 15 97 0 161/68(125) SB 0 (11) 10(A) , No pain 15:29:52 59 11 99 0 161/67(123) SB 0 (11) 10(A) , No pain 15:34:12 55 11 99 33.7 159/68(130) SB 0 (11) 10(A) , No pain 15:39:42 56 14 99 35.2 184/72(132) SB 0 (11) 10(A) , No pain Medications Time Medication Route Dose Verified Delivered Reason Notes Eff ectiveness by by 14:55:27 0.9% NaCl I.V. 100 ml/hr Garrett Heather used for Cipriano Camacho supervisor vat house 14:55:33 Oxygen etCO2 2 l/min Garrett Heather used for Nasal Cipriano Camacho procedure cannula RN 14:55:39 Lidocaine added 20ml vial Garrett Garrett for local 2% to Cipriano Cota MD anesthetic field 15:10:26 Versed I.V. 2 mg Garrett Heather for Cipriano Camacho sedation RN 15:10:32 Fentanyl I.V. 50 mcg Garrett Heather for Cipriano Camacho sedation RN 15:20:33 Adenosine I.V. 50 Garrett Heather used for IV 3mg/ml mcg/kg/min Cipriano Camacho supervisor vat house 15:22:34 Adenosine I.V. 100 Garrett Heather used for IV 3mg/ml mcg/kg/min Cipriano Camacho supervisor vat house 15:34:46 Adenosine I.V. 150 Garrett Chavarriaa used for IV 3mg/ml mcg/kg/min Cipriano Camacho supervisor vat house Procedure Log Time Note 14:37:28 Informed consent obtained and on chart 14:38:34 Arrival Date: 05/08/2019 2:00:00 PM 14:39:11 Insurance Payor : Private health insurance, Medicare 14:41:40 Procedure Status Elective Heart Cath (OP). 14:41:43 Garrett Cota MD sent for patient. Start room use. 14:41:46 Time tracking: Regular hours (M-F 7:00 - 5:00) 14:41:56 Plan of Care:Hemodynamics will remain stable., Cardiac rhythm will remain stable., Comfort level will be maintained., Respiratory function will remain adequate., Patient/ family verbilizes understanding of procedure., Procedure tolerated without complication., Recovers from procedure without complications.. 14:44:47 Lab Result : Creatinine 1.2 mg/dl 14:44:47 Lab Result : BUN 31 mg/dl 14:44:47 Lab Result : Hemoglobin 11.8 g/dl 14:45:17 Patient received from Pre/Post Procedure Room to [facility] 2 Alert and oriented. Tansferred to table in Supine position. 14:52:16 Warm blankets applied, and jose hugger turned on for patient comfort. 14:52:16 Correct patient and procedure confirmed by team. 14:52:17 ECG and BP/O2 sat monitors applied to patient. 14:55:27 0.9% NaCl 100 ml/hr I.V. was administered by Heather Camacho RN; used for procedure; Verbal order read back and verified. 14:55:33 Oxygen 2 l/min etCO2 Nasal cannula was administered by Heather Camacho RN ; used for procedure; Verbal order read back and verified. 14:55:39 Lidocaine 2% 20ml vial added to field was administered by Garrett Cota MD ; for local anesthetic; Verbal order read back and verified. 14:56:54 Vital chart was started 14:57:00 Baseline sample Acquired. 14:57:07 Rhythm: sinus rhythm 14:57:10 Full Disclosure recording started 14:57:21 H&P Date Dictated: 05/08/2019 H&P Addendum completed by physician on day of procedure. (MUST COMPLETE FOR ALL OUTPATIENTS), New H&P dictated by physician.. 14:57:24 Pre-procedure instructions explained to patient. 14:57:24 Pre-op teaching completed and patient verbalized understanding. 14:57:32 Family unavailable. 14:57:44 Patient NPO since Midnight. 14:59:39 Patient allergic to Other allergyarthrotec,reglan,calamine,sotalol,cynbalta,gabapentin 14:59:55 Is the patient allergic to Iodine/contrast media? No. 15:00:03 Was the patient premedicated? No 15:00:05 Is patient on blood thinner?Yes 15:00:14 ACC The patient was administered the following blood thiners within the last 24 hours: ACCPlavix 15:01:38 Patient diabetic? Yes. 15:01:42 If diabetic: On Metformin? Unknown 15:01:51 If on Metformin: Last Dose? unknown. 15:02:13 ----Pre-sedation anethsthesia assessment.---- 15:02:27 Previous problem with sedation/anesthesia? No ? 15:02:30 Snore? Yes 15:02:32 Sleep apnea? Yes 15:02:35 Deviated septum? No 15:02:36 Opens mouth fully? Yes 15:02:38 Sticks out tongue? Yes 15:03:15 Airway obstruction? No ? 15:03:27 Dentures? No ? 15:04:49 Pre procedure: right dorsailis pedis pulse 2+ Normal; easily identifiable; not easily obliterated 15:05:07 Patient pain scale 0/10 ?. 15:05:17 IV patent on arrival in right forearm with 0.9% NaCl at [facility]. 15:05:30 Lab results completed and on chart. 15:05:35 Right groin area was prepped with chlora-prep and draped in sterile fashion 15:05:38 Alarms reviewed by Gurwinder Covarrubias 15:05:40 Sharps counted by scrub and verified by Arin 15:05:41 - 15:05:59 Use device set Femoral Dx 15:06:02 ACIST Syringe (75329) opened to sterile field. 15:06:03 Bag Decanter () opened to sterile field. 15:06:04 Medline Cath Pack ([id number]) opened to sterile field. 15:06:10 ACIST Hand Control (50808) opened to sterile field. 15:06:10 ACIST Manifold (14654) opened to sterile field. 15:06:15 Tegaderm 4 x 4 (1626W) opened to sterile field. 15:08:02 SHEATH 7FR [place] ([id number]) opened to sterile field. 15:08:31 Physician arrived 15:08:32 --------ALL STOP TIME OUT------ 15:08:33 Final Timeout: patient, procedure, and site verified with staff and physician. All members of the team are in agreement. 15:08:36 Right groin site verified by team. 15:08:41 Fire Safety Assessment: A--An alcohol-based skin anteseptic being used preoperatively., C--Open oxygen or nitrous oxide is being used., D--An ESU, laser, or fiber-optic light is being used. 15:09:10 Physical assessment completed. ASA score P 2 - A patient with mild systemic disease as per Garrett Cota MD. 15:09:20 Sedation plan: IV Moderate Sedation Medication:Versed, Fentanyl 15:09:45 Zero performed for pressure channel P1 15:10:01 Zero performed for pressure channel P1 15:10:26 Versed 2 mg I.V. was administered by Heather Camacho RN; for sedation; Verbal order read back and verified. 15:10:32 Fentanyl 50 mcg I.V. was administered by Heather Camacho RN; for sedation ; Verbal order read back and verified. 15:11:26 Procedure started. 15:11:35 Local anesthetic to right femoral vein with Lidocaine 2% by Garrett Cota MD.INITIAL ACCESS ONLY 15:12:03 Zero performed for pressure channel P1 15:12:40 A SWAN 7Fr Thermodilution cather (131F7P) was opened for Procedure. 15:14:05 A 7 Fr Short sheath was inserted into the Right Femoral vein 15:14:59 Acra-Tamika "C" tip catheter inserted 15:16:23 DIAGNOSTIC WIRE .025 150cm J ([id number]) opened to sterile field. 15:16:49 .25 guideright wire advanced. 15:20:33 Adenosine IV 3mg/ml 50 mcg/kg/min I.V. was administered by Heather wan RN; used for procedure; Verbal order read back and verified. 15:22:34 Adenosine IV 3mg/ml 100 mcg/kg/min I.V. was administered by Heather Camacho RN; used for procedure; Verbal order read back and verified. 15:29:23 Right heart pressures obtained. 15:29:29 Cardiac outputs were obtained. 15:31:01 RV saturation: 68.7% 15:32:12 RA saturation: 59.4% 15:33:51 Acra-Tamika removed. 15:34:16 Sheath removed intact; hemostasis achieved with Manual Compression to the Right Femoral vein. 15:34:19 Procedure ended.(Physican Out) 15:34:37 Fluoroscopy time 02.70 minutes. 15:34:46 Adenosine IV 3mg/ml 150 mcg/kg/min I.V. was administered by Heather Camacho RN; used for procedure; Verbal order read back and verified. 15:34:50 Fluoroscopy dose: 162 mGy 15:34:50 Flurop Dose total: 162 15:35:03 Dose Area Product 46698 mGy/cm. 15:35:11 Contrast amount:Isovue 300 0ml. 15:35:15 Maximum allowable dose exceeded? No. 15:35:17 Sharps counted by scrub and verified by R.N. 15:35:30 Insertion/operative site no bleeding no hematoma. 15:35:37 Post-op/insertion site Right Femoral vein dressed using a 4 x 4 and Tegaderm. 15:35:41 Post Procedure Pulses reassessed and unchanged 15:35:48 Post procedure rhythm: unchanged. 15:36:05 Estimated blood loss: 5 ml 15:36:22 Post procedure instruction explained to patient.Patient verbalizes understanding. 15:36:27 Patient needs reinforcement of post procedure teaching. 15:37:19 Procedure type changed to Cath procedure, Diagnostic procedure, Right Heart, Right Heart Cath, Sedation Charges, Moderate Sedation up to 15 minutes 15:38:29 Procedure and supply charges have been captured, reviewed, submitted an d are correct. 15:38:37 Procedure Complication : No complications 15:38:42 Vital chart was stopped 15:38:44 See physician's report for complete and final results. 15:38:47 Report given to Pre/Post Procedure Room. 15:40:05 Patient transfered to Pre/Post Procedure Room with Stretcher. 15:40:11 Procedure ended. 15:40:11 Full Disclosure recording stopped 15:40:28 Post procedure rhythm: unchanged. 15:40:30 End room use (Document Last) Device Usage Item Name Manufacture Quantity Catalog Hospital Part Current Minima l Lot# / Number Charge Number Stock Stock Serial# Code ACIST Syringe Acist 1 85144 [id number] 839321 [id number] 20 (45048) Medical Systems Inc Bag Decanter Microtek 1 2001S 909407 09985 661106 5 (2001S) Medical Inc. Medline Cath Medline 1 [id number] 60164 163695 5 Pack ([id number]) ACIST Hand Acist 1 92406 591174 729810 805260 5 Control Medical (06515) Systems Inc ACIST Manifold Acist 1 09496 471838 893557 118310 5 (72729) Medical Systems Inc Tegaderm 4 x 4 3M 1 1626W 370616 494152 589144 5 (1626W) SHEATH 7FR Terumo 1 [id number] 572732 173075 074284 5 [place] ([id number]) SWAN 7Fr Herrera 1 131F7P 800426 56101 532840 3 Thermodilution Lifesciences cather (131F7P) DIAGNOSTIC St Cesar 1 508146 503484 650943 464653 2 WIRE .025 150cm J (166687) Signature Audit [place] Stage Time Signature Unsigned Intra-Procedure 05/08/2019 Maryjane 3:41:02 PM Vicki RT(R) (CV) Intra-Procedure 05/08/2019 Heather Camacho 3:41:36 PM RN Intra-Procedure 05/08/2019 Garrett Cota MD 3:42:10 PM [address] [place] [address]
[~2019-05-08 11:03] MED LIST changes: -ANTIVERT12.5 MG PO; -K-DUR20 MEQ PO; -LANTUS SOL100 UNIT/1 SC; -LASIX80 MG PO; -METOLAZONE5 MG PO
[2019-05-08] MEDS ORDERED: PLAVIX75 MG PO (11:40)
[2019-05-08] MEDS ORDERED: BAYER CHEWABLE81 MG PO (11:40)
[2019-05-08] MEDS ORDERED: K-DUR20 MEQ PO (11:41)
[2019-05-08] MEDS ORDERED: LANTUS SOL100 UNIT/1 SC (11:42)
[2019-05-08] MEDS ORDERED: METOLAZONE5 MG PO (11:42)
[2019-05-08] MEDS ORDERED: LASIX80 MG PO (11:44)
[2019-05-08] MEDS ORDERED: ISOSORBIDE MONO30 M1 PO (11:44)
[2019-05-08] MEDS ORDERED: ANTIVERT12.5 MG PO (11:53)
[2019-05-08 12:12] VITALS: BP 137/44; Ht 157.5 cm; Wt 91.4 kg
[2019-05-08 12:13] LABS: BASOPHILS 0.5 % (0-2); EOSINOPHILS 1.4 % (0-7); HEMATOCRIT 39.3 % (36.0-48.0); HEMOGLOBIN 11.8 g/dL (12-16); IMMATURE GRANULOCYTES 0.2 % (0-5); MCH 22.6 pg (26.0-34.0); MCV 75.1 fL (80.0-100.0); MEAN PLATELET VOLUME 9.5 fL (7.4-10.4); MONOCYTES 7.8 % (2-11); NEUTROPHILS 49.1 % (40-80); PLATELET COUNT 216 10x3/uL (130-400); RBC 5.23 10x6/uL (4.00-5.40); RDW 20.1 % (11.5-14.5); WBC 6.6 10x3/uL (4.8-10.8)
[2019-05-08 12:27] LABS: ANION GAP 9.6 mmol/L (8-16); CALCIUM 9.1 mg/dL (8.5-10.1); CARBON DIOXIDE 37.7 mmol/L (21.0-32.0); CREATININE - SERUM 1.2 mg/dL (0.6-1.3); POTASSIUM - SERUM 3.3 mmol/L (3.5-5.1)
[2019-05-08 14:09] LABS: CHOL - HDL RATIO 3.2 ratio (2.3-4.1); LDL-HDL RATIO 1.7 ratio (1.5-3.5)
--- NOTE | 2019-05-08 15:50 | NUR ---
PT ARRIVED BY STRETCHER. PLACED ON MONITORS. ASSESSMENT COMPTLETED. CALL LIGHT WITHIN REACH. DR. DE SOUZA ROUNDED AND SPOKE WITH PT.
--- NOTE | 2019-05-08 16:08 | NUR ---
PT IN SUPINE POSITION. RIGHT GROIN DRESSING C/D/I. NO S/S OF HEMATOMA NOTED. CALL LIGHT WITHIN REACH. VSS. TOLERATING SIPS OF ORANGE JUICE AT THIS TIME.
--- NOTE | 2019-05-08 16:34 | NUR ---
PT RESTING COMFORTABLY. VSS. RIGHT GROIN DRESSING C/D/I. NO S/S OF HEMATOMA NOTED. CALL LIGHT WITHIN REACH. DENIES NAUSEA/PAIN AT THIS TIME.
--- NOTE | 2019-05-08 17:00 | NUR ---
RIGHT GROIN DRESSING C/D/I. NO S/S OF HEMATOMA NOTED. PT'S HEAD OF BED INC TO 30 DEGREES. TOLERATED WELL. SET UP WITH SANDWICH TRAY AND DRINK.
--- NOTE | 2019-05-08 17:30 | NUR ---
PIV D/C'D WITH CATH TIP INTACT. TOLERATED WELL. RIGHT GROIN DRESSING C/D/I. NO S/S OF HEMATOMA NOTED. PT INSTRUCTED TO GET UP AND DRESSED. FAMILY AT BEDSIDE TO ASSIST.
--- NOTE | 2019-05-08 17:40 | NUR ---
DISCUSSED DISCHARGE INSTRUCTIONS WITH PT AND PT'S FAMILY. THEY VOICED UNDERSTANDING.
--- NOTE | 2019-05-08 17:45 | NUR ---
PT TO RESTROOM. AMBULATED WITHOUT DIFFICULTY. VOIDED WITHOUT DIFFICULTY. PT REFUSED WHEELCHAIR. AMUBLATED TO VEHICLE WITHOUT DIFFICULTY. NO S/S OF DISTRESS NOTED. ALL BELONGINGS AND PAPERWORK IN HAND. HER SISTER IS HERE TO PICK HER UP AND DRIVE HER HOME.
== END 2019-05-08 17:45 | disposition home or self-care (01) ==
LOC: D.CATH 11:03
PROVIDERS: ATTEND Internal Medicine Cardiovascular Disease
DX: I27.0 Primary pulmonary hypertension (principal); Z13.6 Encounter for screening for cardiovascular disorders

== ENCOUNTER 2019-09-25 00:56 | Outpatient (CLI) | payer MEDICARE, OTHER ==
[~2019-09-25] VITALS: Ht 157.5 cm; Wt 90.9 kg
--- NOTE | ~2019-09-25 | HEMODYNAMI ---
PATIENT:FLY ALMAZAN MEDICAL RECORD: [id number] : 36 LOCATION:[facility] D.2108 ADMISSION DATE: 09/25/19 Generatedon:09/25/201910:44 Patient name: FLY ALMAZAN Patient #: [id number] SSN: [id number] : 1940 Date of study: 09/25/2019 Page: Of Hemodynamic Procedure Report Patient Data Patient Demographics Procedure consent was obtained First Name: FLY Gender: Female Last Name: NORAH : 1940 [facility] Initial: J Age: 79 year(s) Patient #: [id number] Race: SSN: [id number] Additional ID: [id number] Contact details Address: [address] [place] [address] State: [place] City: [place] Zip code: [address] Past Medical History History of disease Date Diagnosis Comments CAD Allergies Allergen Reaction Date Comments Reported Other 09/27/2017 ARTHROTEC, CYMBALTA allergy Other 01/21/2018 metoclopramide HCL, allergy Other 06/21/2018 Sotolol, Reglan, Arthrotec, Cymbalta, Gabapentin allergy Other 05/08/2019 arthrotec,reglan,calamine,sotalol,cynbalta,gabape ntin allergy Other 09/25/2019 ARTHROEC, CALAMINE, CYMBALTA, SOTALOL, GABAPENTIN , allergy REGLAN Admission Admission Data Admission Date: 09/25/2019 Admission Time: 0:56 Arrival Date: 09/25/2019 Arrival Time: 0:00 Admit Source: Other Insurance Payor: Medicare Room #: D.2108 [facility] #: [id number] Height (in.): 61.81 BSA: 1.91 (m2) Height (cm.): 157 BMI: 36.92 (kg/m2) Weight (lbs.): 200.62 Weight (kg.): 91 Lab Results Lab Result Date: 09/25/2019 Lab Result Time: 0:00 Biochemistry Name Units Result Min Max BUN mg/dl 29 --(----)-* 7 18 Creatinine mg/dl 1.1 --(--*-)-- 0.6 1.3 eGFR ml/min 50 *-(----)-- 90 120 NONAFRICAN CBC Name Units Result Min Max Hematocrit % 37.5 *-(----)-- 42 54 Hemoglobin g/dl 11.4 *-(----)-- 13.5 17.5 Procedure Procedure Types Cath Procedure Diagnostic Procedure [facility] w/Coronaries FFR/IVUS FFR Initial Sedation Charges Moderate Sedation up to 30 minutes PCI Procedure Coronary Stent Coronary Stent Initial x2 Hemochron ACT Test Procedure Description Procedure Date Procedure Date: 09/25/2019 Procedure Start Time: 10:14 Procedure End Time: 10:40 Procedure Staff Name Function Oj Headley MD Performing Physician Bambi Siegel RT Monitor Heather Camacho RN Nurse Ene Prado RT Scrub Procedure Data Cath Procedure Fluoroscopy Diagnostic fluoroscopy Total fluoroscopy Time: 5 time: 5 min min Diagnostic fluoroscopy Total fluoroscopy dose: 436 dose: 436 mGy mGy Contrast Material Contrast Material Type Amount (ml) Isovue 370 123 Entry Location Entry Primary Successful Side Size Upsize Upsize Entry Closure Succes sful Closure Location (Fr) 1 (Fr) 2 (Fr) Remarks Device Remarks Femoral Right 5 Fr 6 Fr Exoseal artery Short Estimated blood loss: 10 ml Diagnostic catheters Device Type Used For End Catheter Placement MULTIPACK JL 4.0 5Fr Procedure catheter MULTIPACK 3DRC 5Fr Procedure catheter MULTIPACK Pigtail 5 Fr Procedure catheter Procedure Complications No complications Procedure Medications Medication Administration Route Dosage 0.9% NaCl I.V. 100 ml/hr Oxygen etCO2 Nasal cannula 2 l/min Lidocaine 2% added to field 20 Heparin Flush Bag added to field 2 bags (1000units/500ml NS) Versed I.V. 2 mg Fentanyl I.V. 50 mcg Versed I.V. 2 mg Fentanyl I.V. 50 mcg Heparin Bolus I.V. 5000 units Integrilin (Bolus I.V. 8.5 ml 2mg/ml) Integrilin (Bolus I.V. 1.5 ml 2mg/ml) Plavix P.O. 600 mg Hemodynamics Rest BSA: 1.91 (m2) HGB: 11.4 (g/dl) O2 Consumption: Estimated: 166.23 (ml/min) O2 Co nsumption indexed: Estimated:87.03 (ml/min/m) Heart Rate: 63 (bpm) Snapshots Pre Cath Intra NCS Post Cath Vital Signs Time Heart Resp SPO2 etCO2 NIBP (mmHg) Rhythm Pain Sedation Rate (ipm) (%) (mmHg) Status Level (bpm) 8:59:45 60 14 98 0 Measuring NSR 0 (11) 10(A) , No pain 9:00:30 67 11 98 24 191/75(153) NSR 0 (11) 10(A) , No pain 9:05:08 53 10 99 46 208/83(156) SB 0 (11) 10(A) , No pain 9:09:43 52 10 98 46 145/61(112) SB 0 (11) 10(A) , No pain 9:14:09 50 12 99 46.3 146/68(112) SB 0 (11) 10(A) , No pain 9:18:35 51 12 99 16.7 141/61(103) SB 0 (11) 10(A) , No pain 9:23:02 50 12 99 44 127/62(107) SB 0 (11) 10(A) , No pain 9:27:24 49 12 98 47.1 130/61(98) SB 0 (11) 10(A) , No pain 9:32:23 49 14 98 45.6 Measuring SB 0 (11) 10(A) , No pain 9:32:31 49 14 98 45.6 132/59(103) SB 0 (11) 10(A) , No pain 9:36:43 51 11 98 45.6 118/59(99) SB 0 (11) 10(A) , No pain 9:41:01 49 11 98 46.4 133/59(105) SB 0 (11) 10(A) , No pain 9:45:23 49 11 99 44.8 146/65(114) SB 0 (11) 10(A) , No pain 9:50:22 54 13 99 15.9 Measuring SB 0 (11) 10(A) , No pain 9:50:59 54 12 99 15.9 172/70(140) SB 0 (11) 10(A) , No pain 9:55:31 64 14 100 16.7 189/80(137) SB 0 (11) 10(A) , No pain 10:00:06 55 11 99 15.2 179/71(135) SB 0 (11) 10(A) , No pain 10:04:34 54 16 99 19.7 163/70(118) SB 0 (11) 10(A) , No pain 10:08:52 53 22 99 45.6 139/67(104) SB 0 (11) 10(A) , No pain 10:13:51 53 10 99 12.1 Measuring SB 0 (11) 10(A) , No pain 10:14:06 54 10 99 12.9 150/68(122) SB 0 (11) 9(A) , No pain 10:19:05 55 10 99 16.7 Measuring SB 0 (11) 9(A) , No pain 10:19:23 55 10 99 17.4 165/65(133) SB 0 (11) 9(A) , No pain 10:23:48 59 10 99 20.5 159/68(121) SB 0 (11) 9(A) , No pain 10:28:18 58 18 100 20.5 157/63(118) SB 0 (11) 9(A) , No pain 10:32:44 58 12 99 18.2 172/77(132) SB 0 (11) 9(A) , No pain 10:37:23 58 25 94 12.9 175/61(132) SB 0 (11) 10(A) , No pain Medications Time Medication Route Dose Verified Delivered Reason Notes Effectiveness by by 9:01:53 0.9% NaCl I.V. 100 Oj Heather used for ml/hr Fang Camacho industrial/organizational psychologist 9:02:00 Oxygen etCO2 2 Oj Heather used for Nasal l/min Fang Camacho procedure cannula RN 9:02:05 Lidocaine 2% added 20ml Oj Oj for local to vial Fang Headley MD anesthetic field 9:02:09 Heparin Flush added 2 Oj Oj used for Bag to bags Fang Headley MD procedure (1000units/500ml field NS) 10:02:37 Versed I.V. 2 mg Oj Heather for sedation Fang Camacho RN 10:02:44 Fentanyl I.V. 50 Oj Heather for sedation mcg Fang Camacho RN 10:09:45 Versed I.V. 2 mg Oj Heather for sedation Fang Camacho RN 10:09:53 Fentanyl I.V. 50 Oj Heather for sedation mcg Fang Camacho RN 10:19:37 Heparin Bolus I.V. 5000 Oj Heather for verif ied units Fang Camacho anticoagulation with Dr. LILA Headley 10:32:58 Integrilin I.V. 8.5 Oj Heather for (Bolus 2mg/ml) ml Fang Camacho antiplatelet RN therapy 10:33:12 Integrilin I.V. 1.5 Oj Heather for (Bolus 2mg/ml) ml Fang Camacho antiplatelet RN therapy 10:35:48 Plavix P.O. 600 Oj Heather for mg Fang Camacho antiplatelet RN therapy Procedure Log Time Note 8:19:18 Informed consent obtained and on chart 8:20:04 Procedure Status Urgent Heart Cath (IP). 8:20:05 Time tracking: Regular hours (M-F 7:00 - 5:00) 8:20:09 Plan of Care:Hemodynamics will remain stable., Cardiac rhythm will remain stable., Comfort level will be maintained., Respiratory function will remain adequate., Patient/ family verbilizes understanding of procedure., Procedure tolerated without complication., Recovers from procedure without complications.. 8:20:30 H&P Date Dictated: 09/25/2019 ER History on chart.. 8:22:05 Patient allergic to Other allergyARTHROEC, CALAMINE, CYMBALTA, SOTALOL, GABAPENTIN, REGLAN 8:23:31 Lab Result : BUN 29 mg/dl 8:23:31 Lab Result : Creatinine 1.1 mg/dl 8:23:31 Lab Result : eGFR NONAFRICAN 50 ml/min 8:23:31 Lab Result : Hematocrit 37.5 % 8:23:31 Lab Result : Hemoglobin 11.4 g/dl 8:27:18 Risk of Mortality: 1 8:27:20 Risk of blood transfusion: 4.6 8:27:23 Risk of EMMA: 5.3 8:35:22 Patient Weight : 200.62 lbs 8:35:26 Patient Height : 61.81 inches 8:46:38 Heather Camacho RN sent for patient. Start room use. 8:53:25 Patient received from Med II to CCL 3 Alert and oriented. Tansferred to table in Supine position. 8:53:26 Warm blankets applied, and jose hugger turned on for patient comfort. 8:53:27 Correct patient and procedure confirmed by team. 8:53:27 ECG and BP/O2 sat monitors applied to patient. 8:57:56 Vital chart was started 8:57:59 Baseline sample Acquired. 8:58:06 Rhythm: sinus rhythm 8:58:07 Full Disclosure recording started 8:58:08 Pre-procedure instructions explained to patient. 8:58:08 Pre-op teaching completed and patient verbalized understanding. 8:58:10 Family unavailable. 8:58:11 Patient NPO since Midnight. 8:58:13 Is the patient allergic to Iodine/contrast media? No. 8:58:14 Is patient on blood thinner?Yes 8:58:16 ACC The patient was administered the following blood thiners within the last 24 hours: ACCPlavix 8:58:19 Patient diabetic? Yes. 8:58:20 If diabetic: On Metformin? No 8:58:27 Patient not . Patient is over age 55. 8:58:29 Previous problem with sedation/anesthesia? No ? 8:58:30 Snore? Yes 8:58:31 Sleep apnea? Yes 8:58:32 Deviated septum? No 8:58:33 Opens mouth fully? Yes 8:58:34 Sticks out tongue? Yes 8:58:35 Airway obstruction? No ? 8:58:42 Dentures? Yes PARTIALS- OUT 8:58:47 Pre procedure: right dorsailis pedis pulse 1+ Palpable, but thready & weak; easily obliterated 8:58:50 Patient pain scale 0/10 ?. 8:59:26 IV patent on arrival in left hand with 0.9% NaCl at KVO. 8:59:29 Lab results completed and on chart. 8:59:32 Stress Test: no; N/A ? 8:59:35 Right groin area was prepped with chlora-prep and draped in sterile fashion 8:59:36 Alarms reviewed by R. N. 8:59:36 Sharps counted by scrub and verified by R.N. 8:59:39 Use device set Femoral Dx 8:59:40 ACIST Syringe (84374) opened to sterile field. 8:59:40 Bag Decanter (2002S) opened to sterile field. 8:59:41 ACIST Hand Control (17271) opened to sterile field. 8:59:41 ACIST Manifold (17140) opened to sterile field. 8:59:42 Tegaderm 4 x 4 (1626W) opened to sterile field. 8:59:44 Medline Cath Pack ([id number]) opened to sterile field. 8:59:45 DIAGNOSTIC Multipack 5Fr catheter set (AR2686) opened to sterile field. 8:59:46 SHEATH 5FR [place] (UOT878) opened to sterile field. 8:59:46 EMERALD Guide Wire (314-468) opened to sterile field. 9:01:53 0.9% NaCl 100 ml/hr I.V. was administered by Heather Camacho RN; used for procedure; Verbal order read back and verified. 9:02:00 Oxygen 2 l/min etCO2 Nasal cannula was administered by Heather Camacho RN; used for procedure; Verbal order read back and verified. 9:02:05 Lidocaine 2% 20ml vial added to field was administered by Oj Headley MD; for local anesthetic; Verbal order read back and verified. 9:02:09 Heparin Flush Bag (1000units/500ml NS) 2 bags added to field was administered by Oj Headley MD; used for procedure; Verbal order read back and verified. 9:06:36 Baseline sample Acquired. 9:58:34 Admit Source: Other 10:00:43 Arrival Date: 09/25/2019 12:00:00 AM 10:00:52 Insurance Payor : Medicare 10:01:16 --------ALL STOP TIME OUT------ 10:01:17 Final Timeout: patient, procedure, and site verified with staff and physician. All members of the team are in agreement. 10:01:20 Right groin site verified by team. 10:01:24 Fire Safety Assessment: A--An alcohol-based skin anteseptic being used preoperatively., C--Open oxygen or nitrous oxide is being used., D--An ESU, laser, or fiber-optic light is being used. 10:01:27 Physical assessment completed. ASA score P 2 - A patient with mild systemic disease as per Oj Headley MD. 10:01:34 3a) 45-59 Moderately reduced kidney function. 10:01:37 Maximum allowable contrast dose (3.7 X eGFR X 0.75)139 ml. 10:01:42 Sedation plan: IV Moderate Sedation Medication:Versed, Fentanyl 10:02:37 Versed 2 mg I.V. was administered by Heather Camacho RN; for sedation; Verbal order read back and verified. 10::44 Fentanyl 50 mcg I.V. was administered by Heather Camacho RN; for sedation; Verbal order read back and verified. 10::45 Versed 2 mg I.V. was administered by Heather Camacho RN; for sedation; Verbal order read back and verified. 10:09:53 Fentanyl 50 mcg I.V. was administered by Heather Camacho RN; for sedation; Verbal order read back and verified. 10:14:23 Procedure started. 10:14:26 Local anesthetic to right femoral artery with Lidocaine 2% by Oj Headley MD.INITIAL ACCESS ONLY 10:15:31 A 5 Fr sheath was inserted into the Right Femoral artery 10:16:03 A MULTIPACK JL 4.0 5Fr catheter was advanced over the wire and used for Procedure. 10:16:12 LCA angiography performed. 10:17:01 Catheter removed. 10:17:19 A MULTIPACK 3DRC 5Fr catheter was advanced over the wire and used for Procedure. 10:17:25 RCA angiography performed. 10:17:44 Catheter removed. 10:17:48 A MULTIPACK Pigtail 5 Fr catheter was advanced over the wire and used for Procedure. 10:18:27 LV gram done using SARABIA 10:18:31 Injector settings: Ml/sec: 10, Volume: 20, 10:19:11 EF : 65 % 10:19:13 Catheter removed. 10:19:14 Proceeding to intervention. 10:19:30 SHEATH 6FR [place] (RDH230) opened to sterile field. 10:19:35 Sheath upsized to a 6 Fr Short. 10:19:37 Heparin Bolus 5000 units I.V. was administered by Heather Camacho RN; for anticoagulation; verified with Dr. Headley Verbal order read back and verified. 10:20:29 INFLATOR Merit BasixCompak (JY1562) opened to sterile field. 10:20:30 [place] Verrata Plus pressure wire (86985W) opened to sterile field. 10:20:31 GUIDE 6FR HS I SH catheter ([id number]) opened to sterile field. 10:20:32 GUIDE 6FR XB 3.5 catheter ([id number]) opened to sterile field. 10:20:49 6 Fr XB 3.5 guide catheter was inserted over the wire 10:20:55 FFR/IFR wire advanced. 10:20:56 Wire advanced across lesion. 10:21:49 mCirc lesion measured at .88 with IFR 10:22:10 Pre PCI Site: [place] mCirc has 80% stenosis. 10:22:19 Pre PCI Site: [place] mRCA has 90% stenosis. 10:22:50 AsaPrelert [place] 190cm wire opened to sterile field. 10:23:12 Wire redirected to CIRC. 10:23:41 Place stent Inflation Number: 1 A CHERELLE RX 2.5 x 18 stent ([id number]) was prepped and advanced across the Mid CX . The stent was deployed at 15 AYLEEN for 0:00 (min:sec) . 10:23:44 Inflation number: 2 The stent balloon was then re-inflated across the Mid CX to 19 AYLEEN for 0:00 (min:sec) . 10:23:51 Stent catheter was removed intact over wire. 10:23:52 Wire removed. 10:23:52 Guide catheter removed. 10:24:35 6 Fr HS 1 SH guide catheter was inserted over the wire 10:24:50 ASANaurex [place] 190 wire advanced. 10:25:36 Wire redirected to RCA. 10:27:46 Place stent Inflation Number: 1 A CHERELLE RX 2.5 x 15 stent ([id number]) was prepped and advanced across the Mid RCA . The stent was deployed at 21 AYLEEN for 0:00 (min:sec) . 10:29:05 ACT drawn and resulted at 124 seconds. (normal therapeutic range 180-240 seconds). 10:29:08 Place stent Inflation Number: 2 A CHERELLE RX 3.5 x 08 stent ([id number]) was prepped and advanced across the Mid RCA . The stent was deployed at 23 AYLEEN for 0:00 (min:sec) . 10:30:[address] HEADLEY. NO ADDITIONAL HEPARIN NEEDED. 10:30:55 Stent catheter was removed intact over wire. 10:32:58 Integrilin (Bolus 2mg/ml) 8.5 ml I.V. was administered by Heather Camacho RN; for antiplatelet therapy; Verbal order read back and verified. 10:33:12 Integrilin (Bolus 2mg/ml) 1.5 ml I.V. was administered by Heather Camacho RN; for antiplatelet therapy; Verbal order read back and verified. 10:34:13 Place stent Inflation Number: 3 A CHERELLE OTW 2.75 x 08 stent ([id number]) was prepped and advanced across the Mid RCA . The stent was deployed at 11 AYLEEN for 0:00 (min:sec) . 10:34:17 Stent catheter was removed intact over wire. 10:34:18 Wire removed. 10:34:19 Guide catheter removed. 10:34:31 EXOSEAL 6Fr (EX600) opened to sterile field. 10:34:38 Sheath removed intact; hemostasis achieved with Exoseal to the Right Femoral artery. 10:34:42 Procedure ended.(Physican Out) 10:35:44 Fluoroscopy time 05.00 minutes. 10:35:48 Plavix 600 mg P.O. was administered by Heather Camacho RN; for antiplatelet therapy; Verbal order read back and verified. 10:35:50 Flurop Dose total: 436 10:35:50 Fluoroscopy dose: 436 mGy 10:35:57 Dose Area Product 69891 mGy/cm. 10:36:07 Contrast amount:Isovue 370 123ml. 10:36:15 Maximum allowable dose exceeded? No. 10:36:17 Sharps counted by scrub and verified by R.N. 10:36:21 Post-op/insertion site Right Femoral artery dressed using a 4 x 4 and Tegaderm. 10:36:36 Post Procedure Pulses reassessed and unchanged 10:36:38 Post procedure: right dorsailis pedis pulse 2+ Normal; easily identifiable; not easily obliterated. 10:36:42 Post-procedure physical assessment completed. ASA score P 2 - A patient with mild systemic disease as per Oj Headley MD. 10:36:45 Post procedure rhythm: unchanged. 10:36:48 Estimated blood loss: 10 ml 10:36:50 Post procedure instruction explained to patient.Patient verbalizes understanding. 10:36:50 Patient needs reinforcement of post procedure teaching. 10:38:52 Procedure type changed to Cath procedure, Diagnostic procedure, LHC, C w/Coronaries, FFR/IVUS, FFR Initial, Sedation Charges, Moderate Sedation up to 30 minutes, PCI procedure, Coronary Stent, Coronary Stent Initial x2, Hemochron ACT Test 10:40:11 Procedure and supply charges have been captured, reviewed, submitted and are correct. 10:40:15 Procedure Complication : No complications 10:40:17 Vital chart was stopped 10:40:18 [facility] Findings: MVD- PCI performed (see procedure note) 10:40:20 Operative report dictated upon procedure completion. 10:40:20 See physician's report for complete and final results. 10:40:23 Report given to Pre/Post Procedure Room. 10:40:27 Patient transfered to Pre/Post Procedure Room with Stretcher. 10:40:29 Procedure ended. 10:40:29 Full Disclosure recording stopped 10:40:40 ACC-PCI Only Patient was given prescriptions, or instructed by Oj Headley MD to start/continue the following medications upon discharge: Plavix 10:40:42 End room use (Document Last) 10:43:15 End room use (Document Last) 10:43:42 End room use (Document Last) Intervention Summary Intervention Notes Time ActionType Lesion and Equipment Used Action# Pressure Duration Attributes 10:23:41 Place stent Mid CX CHERELLE RX 2.5 x 1 15 00:00 18 stent ([id number]) 10:23:44 Reinflate Mid CX CHERELLE RX 2.5 x 2 19 00:00 stent 18 stent balloon ([id number]) 10:27:46 Place stent Mid RCA CHERELLE RX 2.5 x 1 21 00:00 15 stent ([id number]) 10:29:08 Place stent Mid RCA CHERELLE RX 3.5 x 2 23 00:00 08 stent ([id number]) 10:34:13 Place stent Mid RCA CHERELLE OTW 2.75 3 11 00:00 x 08 stent ([id number]) Device Usage Item Name Manufacture Quantity Catalog Hospital Part Current Minimal Lot# / Number Charge Number Stock Stock Serial# Code ACIST Syringe Acist 1 25966 295879 508087 301035 20 (94544) Medical Systems Inc Bag Decanter Microtek 1 707232 71941 660371 5 () Medical Inc. ACIST Hand Acist 1 83086 379707 598561 099141 5 Control Medical (51816) Systems Inc ACIST Manifold Acist 1 05818 282283 869847 247242 5 (46411) Medical Systems Inc Tegaderm 4 x 4 3M 1 1626W 365992 947147 579714 5 (1626W) Medline Cath Medline 1 [id number] 359372 23288 503105 5 Pack ([id number]) DIAGNOSTIC Cardinal 1 ZA4977 332087 62941 725459 30 Multipack 5Fr Health catheter set (FH3375) SHEATH 5FR Terumo 1 PYC121 258710 814205 407069 5 [place] (ECH147) EMERALD Guide Cardinal 1 502-455 419808 671377 961275 5 Wire (502-455) Health MULTIPACK JL Cardinal 1 156127 5 4.0 5Fr Health catheter MULTIPACK 3DRC Cardinal 1 334922 5 5Fr catheter Health MULTIPACK Cardinal 1 842855 5 Pigtail 5 Fr Health catheter SHEATH 6FR Terumo 1 FBD538 234349 410811 536873 40 [place] (GJA308) INFLATOR Merit Merit 1 FJ0090 541223 125307 133443 15 [facility] (EQ9692) [place] 1 07151W 780679 253949115 372213 5 Verrata Plus pressure wire (54381I) GUIDE 6FR HS I Medtronic 1 [id number] 070798 78759 176099 1 SH catheter ([id number]) GUIDE 6FR XB Cardinal 1 [id number] 917744 891975 079947 2 3.5 catheter Health (19631724) [facility] Intecc 1 [id number] 940197 1928078 7140879 0 190cm wire CHERELLE RX 2.5 x Medtronic 1 [id number] 059124 6804883 026399 5 [id number] 18 stent ([id number]) CHERELLE RX 2.5 x Medtronic 1 [id number] 753189 6634783 263691 5 [id number] 15 stent ([id number]) CHERELLE RX 3.5 x Medtronic 1 [id number] 767877 4631195 010856 5 [id number] 08 stent ([id number]) CHERELLE OTW 2.75 Medtronic 1 [id number] 964610 29796 017141 5 x 08 stent ([id number]) EXOSEAL 6Fr Cardinal 1 EX600 426900 043468 447320 10 (EX600) Health Signature Audit [place] Stage Time Signature Unsigned Intra-Procedure 09/25/2019 Bambi Siegel 10:43:15 AM RT(R) Intra-Procedure 09/25/2019 Heather Camacho 10:43:42 AM RN Intra-Procedure 09/25/2019 Oj Headley 10:43:57 AM [facility] [address] [place] [address]
[~2019-09-25 00:56] MED LIST changes: +ANTIVERT12.5 MG PO; +K-DUR20 MEQ PO; +LANTUS SOL100 UNIT/1 SC; +LASIX80 MG PO; +METOLAZONE5 MG PO
[2019-09-25 01:49] LABS: BASOPHILS 0.3 % (0-2); HEMATOCRIT 37.5 % (36.0-48.0); HEMOGLOBIN 11.4 g/dL (12-16); IMMATURE GRANULOCYTES 0.3 % (0-5); LYMPHOCYTES 35.8 % (15-50); MCH 23.5 pg (26.0-34.0); MCHC 30.4 g/dL (31.0-37.0); MCV 77.2 fL (80.0-100.0); MONOCYTES 7.4 % (2-11); NEUTROPHILS 54.2 % (40-80); PLATELET COUNT 250 10x3/uL (130-400); RBC 4.86 10x6/uL (4.00-5.40); RDW 17.1 % (11.5-14.5); WBC 7.9 10x3/uL (4.8-10.8)
[2019-09-25 02:02] LABS: CALC OSMOLALITY 286 mosm/kg (275-300); CALCIUM 8.7 mg/dL (8.5-10.1); CARBON DIOXIDE 34.5 mmol/L (21.0-32.0); CHLORIDE - SERUM 98 mmol/L (98-107); CREATININE - SERUM 1.1 mg/dL (0.6-1.3); INR 0.94 (0.85-1.17); POTASSIUM - SERUM 3.6 mmol/L (3.5-5.1); PROTIME 12.5 SECONDS (11.6-15.0); SODIUM 136 mmol/L (136-145); UREA NITROGEN 29 mg/dL (7-18); eGFR NON AFRICAN AMERICAN 50 mL/min (90-120)
[2019-09-25 02:03] LABS: APTT 27.1 SECONDS (22.8-39.4)
[2019-09-25 02:08] LABS: GLUCOSE 255 mg/dL (74-106)
[2019-09-25 02:17] LABS: ALBUMIN 3.4 g/dL (3.4-5.0); ALKALINE PHOSPHATASE 74 U/L (30-120); ALT (SGPT) 20 U/L (10-68); BILIRUBIN - TOTAL 0.32 mg/dL (0.2-1.3); CKMB 1.9 U/L (0.0-3.6); CREATINE KINASE 62 UL (21-215); MAGNESIUM - SERUM 2.3 mg/dL (1.8-2.4); PROTEIN - SERUM 6.7 g/dL (6.4-8.2); TROPONIN-I < 0.017 ng/mL (0.000-0.060)
[2019-09-25 04:00] VITALS: BP 157/48
[2019-09-25 04:15] VITALS: BP 142/84
[2019-09-25 04:32] VITALS: BMI 36.6
--- NOTE | 2019-09-25 07:45 | NUR ---
AM ROUNDS COMPLETED. INTRODUCED MYSELF TO PT PRIMARY RN FOR TODAYS SHIFT. SHIFT ASSESSMENT COMPLETED. PT IS A&O SITTING UP ON EDGE OF BED RESTING QUIETLY. PT STATES HER CHEST PAIN IS STILL PRESENT AND REQUESTING TO KNOW OUR PLANS. PT IS RUNNING NORMAL SINUS ON TELEMETRY. PT IS REMAINING NPO TO WAIT AND FIND OUT IF SHE WILL HAVE A PROCEDURE SHE HAS STENT AND CARDIAC HISTORY. L.FA PIV SL. RR NONLABORED ON RA. PT DENIES ANY IMMEDIATE NEEDS. WILL CHECK CHART AND ORDERS AND CPOC.
[2019-09-25 08:05] VITALS: Ht 157.5 cm; Wt 90.9 kg
--- NOTE | 2019-09-25 08:32 | NUR ---
SATELLITE DISH TECHNICIAN CALLED TO PRE-OP PT. PRE-OP COMPLETED. ADAM BECKHAM AT BEDSIDE PERFORMING CLIPPING AND BATH. CONSENTS SIGNED AND OBTAINED IN CHART. PT DENIES ANY QUESTIONS OR CONCERNS. WILL CPOC.
--- NOTE | 2019-09-25 10:38 | HP ---
PATIENT: FLY ALMAZAN MEDICAL RECORD: [id number] ACCOUNT: [id number] LOCATION:[facility].2108 : 38 ADMISSION DATE: 09/25/19 PCP: PATTI MIRELES MD HISTORY AND PHYSICAL EXAMINATION DIAGNOSES: 1. Unstable angina. 2. Coronary artery disease. 3. Previous multivessel percutaneous transluminal coronary angioplasty stent. 4. Insulin-dependent diabetes. 5. Hypertension. 6. Hyperlipidemia. HISTORY OF PRESENT ILLNESS: Mrs. Almazan is status post PTCA stent multivessel in the past, last being approximately 6 months ago at [facility]. She presents with 1-day of increasing episodes of chest pain, chest discomfort compatible with angina just like that of her previous angina with a myocardial infarction. She continues to have chest pain at 6/10 level this morning. It is a dull aching pressure sensation across the anterior chest with radiation to her back quite severe. She has received nitro as well as morphine and continues to have the pain. Her EKG is with no acute ST-T abnormalities. PHYSICAL EXAMINATION: CONSTITUTIONAL/GENERAL APPEARANCE: Well nourished, well developed, appears stated age. EYES: Lids and conjunctivae noninjected. No discharge. No pallor. ENT: Lips within normal limit. No cyanosis. No pallor. NECK: Carotid arteries, bilateral normal upstroke. No bruits. No thrills. No jugular venous pressure or distention. CERVICAL LYMPH NODES: Nontender. Nonenlarged. THYROID: Not enlarged. No nodules. CARDIOVASCULAR: Precordial exam, nondisplaced. No heaves or pericardial thrills. Rate and rhythm, regular. Heart sounds, normal S1, normal S2. No S3, no gallop, no rub. Systolic murmur, not heard. Diastolic murmur, not heard. RESPIRATORY: Respiratory effort, unlabored. Normal curvature. No thoracic deformity. No chest wall tenderness. Percussion, resonant. Auscultation, clear. No wheezes, no rales, no rhonchi. ABDOMEN: Soft, nondistended, nontender. No abdominal pain, no vomiting and normal appetite. MUSCULOSKELETAL: No joint tenderness, normal gait, normal tone. SKIN: Warm and dry. OVERALL IMPRESSION: Unstable angina with continued pain just like that of her previous myocardial infarction. Most likely she has recurrent hemodynamically significant coronary artery disease. We will proceed with coronary angiography. Further care depends upon the findings of the angiography. TRANSINT:[id number] Voice Confirmation ID: [id number] DOCUMENT ID: [id number] HISTORY AND PHYSICAL [id number] FLY ALMAZAN JEFFREY MD at 1038 CC: [id number] DICTATION DATE: 09/25/19 0804 TRUCK MANAGER: 09/25/19 1004 [facility] [address] [id number]
--- NOTE | 2019-09-25 11:00 | NUR ---
PT BACK FROM PROCEDURE AWAKE AND ORIENTED LAYING FLAT IN BED. PT IS TO REMAIN FLAT X4HRS AND VERBALIZED UNDERSTANDING. PERIPHERAL PULSES INTACT. PT HAS A DRSG TO GINETTE CDI NO S/S OF BLEEDING OR HEMATOMA NOTED. VSS AND BEING MONITERED PER POST PROCEDURE POLICY. PT C/O BEING "STARVING" SO I ORDERED A FINGER FOOD TRAY AND WILL CPOC. RR NONLABORED WITH NC @2L.
--- NOTE | 2019-09-25 11:39 | NUR ---
GINETTE CHOUDHURYG REMAINS CDI NO S/S OF BLEEDING OR HEMATOMA NOTED. PROVIDED PT WITH FRESH ICE WATER. SHE IS RESTING QUEITLY LYING FLAT IN BED WAITING ON HER LUNCH TRAY. VSS AND STILL BEING MONITERED PER POST PROCEDURE PROTOCOL. CL IN REACH, BED IN LOWEST, SIDE RAILS X2. WILL CTM.
--- NOTE | 2019-09-25 12:15 | NUR ---
PT LYING FLAT RESTING QUIETLY IN BED. PERIPHERAL PULSES PALPATED. RR NONLABORED WITH NC @2L IN PLACE. RJUANITO CHOUDHURYG REMAINS CDI NO S/S OF BLEEDING OR HEMATOMA. CL IN REACH. WILL CTM.
--- NOTE | 2019-09-25 13:23 | NUR ---
GINETTE AZUL REMAINS CDI. NO S/S OF BLEEDING OR HEMATOMA NOTED. PT STATES SHE NEEDS TO USE THE BATHROOM BUT MUST LAY FLAT SO I ASSISTED HER ONTO THE BEDPAN. NO IMMEDIATE NEEDS AT THIS TIME. WILL CTM.
--- NOTE | 2019-09-25 15:36 | NUR ---
PTS 4HR LAY NOW COMPLETE. ASSISTED PT UP TO BR AND SHE VOIDED WITHOUT ANY DIFFICULTIES. PTS GINETTE DRSG REMAINS CDI. VSS. PT DENIES ANY CURRENT PAIN OR NEEDS AT THIS TIME. WILL CTM.
--- NOTE | 2019-09-25 16:58 | NUR ---
CALLED IN PTS PLAVIX PRESCRIPTION TO [facility] AND SPOKE TO PHARMACIST HEAVENLY. PT VERY NONCOMPLIANT BUT IS AWARE TO PICK IT UP AND STATES SHE WILL TOMORROW. DISCHARGE TEACHING PROVIDED AND PAPERS SIGNED. PT VERBALIZED UNDERSTANDING AND DENIES ANY QUESTIONS OR CONCERNS. ALL BELONGINGS COLLECTED. D/C PTS L.HAND PIV WITH CATHETER TIP FULLY INTACT. D/C TELEMETRY AND RETURNED TO [facility]. PTS SISTER HERE FOR TRANSPORTATION. NO FURTHER NEEDS.
--- NOTE | 2019-09-30 11:53 | OP ---
PATIENT NAME: FLY ALMAZAN MEDICAL RECORD: [id number] :36 LOCATION:D.OPS ADMISSION DATE: SURGEON: EL LAMA MD DATE OF OPERATION: 09/25/2019 PROCEDURES: 1. PTCA stent left circumflex. 2. IFR left circumflex. 3. PTCA stent RCA. 4. Left heart catheterization. 5. Selective coronary angiography. 6. Left ventriculogram. INDICATION: Angina and coronary artery disease. PROCEDURE IN DETAIL: After informed consent was obtained and after detailed explanation of risks, benefits as well as alternative therapies, the patient elected to proceed with angiogram and angioplasty. The right femoral area was prepped and draped in normal sterile fashion. Right femoral artery was cannulated via modified Seldinger technique with placement of 6-Syriac sheath. All catheters exchanged through this sheath. FINDINGS: Left ventriculogram was performed in standard 30-degree SARABIA view, reveals good cardiac wall motion, ejection fraction estimated at 55%. SELECTIVE CORONARY ANGIOGRAPHY: 1. Left main is with no significant angiographic disease. 2. Left anterior descending has mild irregularities, but no flow-limiting stenosis. 3. The left circumflex has 70% to 75% stenosis in the mid vessel and IFR was abnormal. 4. The right coronary has previously placed stents with 90% stenosis at the ostium, 90% stenosis in the mid vessel. PTCA STENT OF THE RCA: Stents used were 3.5 x 8, 2.5 x 15, 2.5 x 8. Result was 0% residual stenosis. PTCA STENT OF THE LEFT CIRCUMFLEX: The stent used was 2.5 x 18. Result was 0% residual stenosis. OVERALL IMPRESSION: Successful percutaneous transluminal coronary angioplasty stent of the right coronary artery and left circumflex, both going from 90% initial stenosis to 0% residual. TRANSINT:[id number] Voice Confirmation ID: [id number] DOCUMENT ID: [id number] EL LAMA MD at 1153 CC: [id number] DICTATION DATE: 09/25/19 1041 BEAUTY ARTIST: 09/25/19 1244 DEP CLI 09/25/19 [place] [address]
--- NOTE | 2019-09-30 11:54 | DS ---
PATIENT:FLY ALMAZAN :36 MEDICAL RECORD: [id number] DISCHARGE SUMMARY ADMISSION DATE: 09/25/19 DISCHARGE DATE: 09/25/19 DATE OF DISCHARGE: 09/25/2019 DIAGNOSES: 1. Unstable angina. 2. Coronary artery disease. 3. PTCA stent left circumflex and right coronary artery this admission. HOSPITAL COURSE: Mrs. Almazan presents with unstable anginal symptomatology, found to have significant disease of the circumflex and RCA, underwent successful PTCA stent of both territories, was discharged home in stable condition and will follow up with [facility] in 1 month. No change in her medications. TRANSINT:[id number] Voice Confirmation ID: [id number] DOCUMENT ID: [id number] EL LAMA MD at 1154 CC: [id number] DICTATION DATE: 09/25/19 1040 CERTIFIED MEDICAL TECHNICIAN ASSISTANT: 09/25/19 2253 DEP CLI 09/25/[address] [address]
== END 2019-09-25 17:01 | disposition home or self-care (01) ==
LOC: D.ER 00:56 → D.OPS 00:56 → D.M2 02:46 → EDSTATUS 03:21 → D.OPS 17:01
PROVIDERS: Family Medicine; ATTEND Internal Medicine Interventional Cardiology
DX: I25.110 Atherosclerotic heart disease of native coronary artery with unstable angina pectoris (principal); Z95.5 Presence of coronary angioplasty implant and graft; E11.9 Type 2 diabetes mellitus without complications; Z79.4 Long term (current) use of insulin; I10 Essential (primary) hypertension; E78.5 Hyperlipidemia, unspecified
CPT/HCPCS: 93458; 93571; C9600 ×2

== ENCOUNTER 2019-12-05 11:23 | Inpatient (IN) | payer MEDICARE, OTHER ==
[~2019-12-05] VITALS: Ht 157.5 cm; Wt 100.9 kg
[2019-12-05] VITALS (33 sets, daily range): BP systolic 84–192; BP diastolic 28–110; BMI 38.4
--- NOTE | ~2019-12-05 | EC ---
PATIENT:FLY ALMAZAN DATE OF SERVICE: 12/05/19 SEX: F MEDICAL RECORD: [id number] DATE OF : 36 LOCATION:[facility] AGE OF PATIENT: 79 ADMISSION DATE: 12/05/19 REFERRING PHYSICIAN: INTERPRETING PHYSICIAN: ARYA MITCHELL MD ECHOCARDIOGRAM REPORT ECHO CHARGES 4 ECHO COMPLETE Date: 12/07/19 CLINICAL DIAGNOSIS: ELEVATED TROPONIN ECHOCARDIOGRAPHIC MEASUREMENTS (adult normal given) AC root (d.<3.7cm) 3.0 cm LV Septum d (<1.2 cm> 1.6 cm Valve Excursion 1.2 cm LV Septum (systole) 1.8 cm Left Atria (s.<4.0cm> 4.3 cm LVPW d(<1.2cm) 1.5 cm RV (d.<2.3cm) 5.1 cm LVPW (sytole) 1.7 cm LV diastole(<5.6CM) 5.0 cm MV E-F(>70mm/sec) cm LV systole 3.3 cm LVOT Diameter 1.5 cm MV exc.(>10mm) 1.5 cm Est.ejection fraction (50-75%) % DOPPLER: LVIT cm/sec A 90.0 cm/sec E 116.0 cm/sec LA cm/sec RVSP 45 mmHg LVOT 108 cm/sec AOP1/2T m/s Asc. Ao 151 cm/sec RVOT 68 cm/sec RA cm/sec PA 92 cm/sec AV Gradient Peak 9.10 mmHg AV Mean 5.82 mmHg AV Area 1.3 cm MV Gradient Peak 5.85 mmHg MV Mean 1.90 mmHg MV Area cm COMMENTS: Retail Banker: 2 GWEN ARMENTA Wellness Assistant: 4 Dr. Mitchell TAPE# PACS Pericardial Effusion N DATE OF SERVICE: PROCEDURE: Transthoracic echocardiogram. Left ventricle shows left ventricular hypertrophy, ejection fraction is in the 45% to 50% range. There is mild inferior basilar hypokinesis. There is mild left ventricular hypertrophy that is concentric. The left atrium is mildly dilated, but normal function. ECHOCARDIOGRAM REPORT [id number] FLY ALMAZAN Aortic valve is sclerotic, but there is no evidence of stenosis or regurgitation and the valve gradient is normal. Mitral valve has mild mitral regurgitation, normal structure and function. Tricuspid valve has mild tricuspid regurgitation. The RVSP is normal to mildly elevated at 40-45 mmHg. The right ventricle is moderately dilated and hypokinetic at the free wall. The right atrium is also mildly enlarged. IMPRESSION: The patient does have dilated right-sided structures and mild to moderate pulmonary hypertension. Otherwise, the patient has left ventricular hypertrophy and there is some evidence of regional wall motion abnormalities consistent with potential coronary artery disease. TRANSINT:[id number] Voice Confirmation ID: [id number] DOCUMENT ID: [id number] ARYA MITCHELL MD CC: [id number] DICTATION DATE: 12/08/19 1156 WEATHERIZATION CREW LEADER: 12/08/19 1326 ADM IN [facility] [address] [id number]
[2019-12-05 12:23] LABS: BASOPHILS 0.1 % (0-2); EOSINOPHILS 0 % (0-7); HEMATOCRIT 41.5 % (36.0-48.0); HEMOGLOBIN 12.4 g/dL (12-16); IMMATURE GRANULOCYTES 0.6 % (0-5); LYMPHOCYTES 13.7 % (15-50); MCH 23.6 pg (26.0-34.0); MCHC 29.9 g/dL (31.0-37.0); MEAN PLATELET VOLUME 10.5 fL (7.4-10.4); MONOCYTES 7.5 % (2-11); NEUTROPHILS 78.1 % (40-80); PLATELET COUNT 221 10x3/uL (130-400); RBC 5.25 10x6/uL (4.00-5.40); WBC 17.5 10x3/uL (4.8-10.8)
[2019-12-05 13:29] LABS: CALC OSMOLALITY 292 mosm/kg (275-300); CALCIUM 8.5 mg/dL (8.5-10.1); CARBON DIOXIDE 22.8 mmol/L (21.0-32.0); CHLORIDE - SERUM 94 mmol/L (98-107); CREATININE - SERUM 3.5 mg/dL (0.6-1.3); POTASSIUM - SERUM 3.3 mmol/L (3.5-5.1); SODIUM 134 mmol/L (136-145); UREA NITROGEN 50 mg/dL (7-18); eGFR NON AFRICAN AMERICAN 13 mL/min (90-120)
[2019-12-05 13:32] LABS: GLUCOSE 320 mg/dL (74-106)
--- NOTE | 2019-12-05 13:36 | NUR ---
AFTER MULTIPLE ATTEMPTS AT LAB DRAW, AND IV ATTEMPTS, MIDLINE PLACED
[2019-12-05 13:51] LABS: ALBUMIN 3.2 g/dL (3.4-5.0); ALKALINE PHOSPHATASE 87 U/L (30-120); ALT (SGPT) 144 U/L (10-68); BILIRUBIN - TOTAL 0.54 mg/dL (0.2-1.3); C-REACTIVE PROTEIN 5.6 mg/dL (0.0-0.9); CKMB 97.1 U/L (0.0-3.6); FERRITIN 79 ng/mL (3-244); PROTEIN - SERUM 6.6 g/dL (6.4-8.2)
[2019-12-05 13:54] LABS: CREATINE KINASE 1682 UL (21-215); TROPONIN-I 4.378 ng/mL (0.000-0.060)
--- NOTE | 2019-12-05 15:30 | NUR ---
16 GERMAN TREVINO INSERTED PRIOR TO TRANSFER TO ICU, PT TOLERATED PROCEURE WELL
--- NOTE | 2019-12-05 15:45 | NUR ---
1545 PT TRANSFERED TO ICU WITH NS INFUSING AT 999 ML/HR, LEVOPHED INFUSING AT 5 MICS, AND AZITHROMYCIN INFUSING AT 250 ML/HR.
[2019-12-05 16:01] LABS: BACTERIA NONE SEEN /hpf (NEGATIVE); BILIRUBIN NEGATIVE (NEGATIVE); EPITHELIAL CELLS OCC /hpf (0-5); GLUCOSE 1000 mg/dL (NEGATIVE); KETONE NEGATIVE (NEGATIVE); NITRITE NEGATIVE (NEGATIVE); UROBILINOGEN NORMAL (NORMAL); WHITE CELLS - URINE RARE /hpf (NEGATIVE)
--- NOTE | 2019-12-05 17:00 | NUR ---
PT RECEIVED FROM ER. ON DROPLET PRECAUTIONS FOR POSSIBLE COVID. DR SOLIS CALLED ASKING ABOUT CT RESULTS FROM CT PT HAD IN ER. ASKED TO CONSULT NEUROSURGERY. AT THAT TIME, BRANDON WINSTON, ROUNDED ON PT QUESTIONING CT SCAN AND PAGING DR HARTMANN AT THAT TIME. PT IS ALERT AND ORIENTED. HAS EQUAL STRENGTHS. NO VISION DEFICITS. DR MORA, NEUROLOGY, ROUNDED ON PT. MRA ORDERED. PT IS FULL CODE, PER BRANDON WINSTON. PT HAS RIGHT PICC LINE WITH LEVOPHED AND NS. PT HAS TREVINO. ON O2 AT 4L. PT DID HAVE PROCEDURE IN PAIN CLINIC YESTERDAY. SMALL BANDAID TO MID BACK. SCANT AMOUNT OF DRAINAGE. LOOKED AT WITH BRANDON WINSTON.
--- NOTE | 2019-12-05 18:24 | NUR ---
PT CONTINENT OF STOOL. LIQUID.
[2019-12-05 18:50] LABS: D-DIMER-QUANTITATIVE 1.46 ug/mLFEU (0.20-0.54)
[2019-12-05 18:51] LABS: APTT 27.7 SECONDS (22.8-39.4); INR 1.17 (0.85-1.17); PROTIME 14.8 SECONDS (11.6-15.0)
--- NOTE | 2019-12-05 19:00 | NUR ---
HEAD TO TOE ASSESSMENT COMPLETED. PT ALERT ORIENTEDX4. HOB ELEVATED TO [address] KERR, TISH ALARCON, AND PRIYA ALARCON AT BEDSIDE. ORDERS RECIEVED TO KEEP HOB ELEVATED, ASSESS NEURO Q HOUR AND CALL IF CHANGES ARE NOTED.LEVOPHED INFUSING TO RT PICC AT 7 MCG/MIN. ORDERS RECIVED TO MAINTAIN BP BETWEEN 120-140.
--- NOTE | 2019-12-05 20:00 | NUR ---
PT LETHARGIC/ SOMULENT SPEAKING IN [place]. PUPILS AT 1 AND SLUGGISH. PT WEAK, AND UNABLE TO MOVE ARMS.. CALLED TISH TAYLOR TO UPDATE CONDITION, AND PAGED DR MORA. ORDERS RECIEVED TO ADMINISTER MANITOL 0.5G/KG Q 24 HRS.
[2019-12-05 20:21] LABS: CREATINE KINASE 2810 UL (21-215); TROPONIN-I 4.959 ng/mL (0.000-0.060)
--- NOTE | 2019-12-05 23:00 | NUR ---
head to toe ASSESSMENT COMPLETED. PT CONFUSED, BUT ARROUSES TO VOICE. ORIENTED TO NAME. NO LONGER SPEAKING IN WORD SALAD. PROVIDED COMPLETE BED BATH WITH CHG. INCREASED HOB TO 45 DECREES.
[2019-12-06] VITALS (50 sets, daily range): BP systolic 112–173; BP diastolic 43–93; Ht 157.5 cm; Wt 100.9 kg
--- NOTE | 2019-12-06 02:51 | NUR ---
REPOSITIONED. PT CONTINUES TO BE CONFUSED. NO UNCHANGED NEURO STATUS
--- NOTE | 2019-12-06 03:30 | NUR ---
ATTEMPTED TO OBTAIN AM LABS FROM PICC LINE WITH DIFFICULTY. PICC PATENT BUT DOES NOT DRAW. CALLED LAB FOR LAB DRAW.
--- NOTE | 2019-12-06 06:00 | NUR ---
CALLED LAB TO FOLLOW UP ON LAB DRAW. STATED THEY WILL BE ON UNIT TO OBTAIN LABS
[2019-12-06 07:03] LABS: BASOPHILS 0.1 % (0-2); EOSINOPHILS 0 % (0-7); HEMATOCRIT 34.6 % (36.0-48.0); HEMOGLOBIN 10.2 g/dL (12-16); IMMATURE GRANULOCYTES 0.3 % (0-5); LYMPHOCYTES 13.9 % (15-50); MCH 22.7 pg (26.0-34.0); MCHC 29.5 g/dL (31.0-37.0); MEAN PLATELET VOLUME 9.6 fL (7.4-10.4); MONOCYTES 7.8 % (2-11); NEUTROPHILS 77.9 % (40-80); PLATELET COUNT 200 10x3/uL (130-400); RDW 17.5 % (11.5-14.5)
[2019-12-06 07:22] LABS: MCV 76.9 fL (80.0-100.0); WBC 11.5 10x3/uL (4.8-10.8)
--- NOTE | 2019-12-06 07:30 | NUR ---
REPORT RECEIVED. PT RESTING QUIETLY. VSS. ON LEVOPHED AND NS TO RIGHT PICC. PT HAS TREVINO. WILL ATTEMPT TO TITRATE LEVOPHED OFF.
[2019-12-06 07:40] LABS: ALBUMIN 2.8 g/dL (3.4-5.0); ALKALINE PHOSPHATASE 69 U/L (30-120); ALT (SGPT) 172 U/L (10-68); BILIRUBIN - TOTAL 0.26 mg/dL (0.2-1.3); CALCIUM 7.2 mg/dL (8.5-10.1); CARBON DIOXIDE 26.7 mmol/L (21.0-32.0); CHLORIDE - SERUM 103 mmol/L (98-107); CHOL - HDL RATIO 2.1 ratio (2.3-4.1); CHOLESTEROL, TOTAL 99 mg/dL (0-200); CKMB 84.9 U/L (0.0-3.6); HDL CHOLESTEROL 47 mg/dL (32-96); LDH 362 U/L (81-234); LDL CHOLESTEROL 42 mg/dL (0-100); LDL-HDL RATIO 0.9 ratio (1.5-3.5); MAGNESIUM - SERUM 2.5 mg/dL (1.8-2.4); PHOSPHOROUS 4.7 mg/dL (2.5-4.9); POTASSIUM - SERUM 3.2 mmol/L (3.5-5.1); PROTEIN - SERUM 5.9 g/dL (6.4-8.2); SODIUM 140 mmol/L (136-145); TRIGLYCERIDE 52 mg/dL (30-200); UREA NITROGEN 52 mg/dL (7-18)
[2019-12-06 07:41] LABS: CALC OSMOLALITY 295 mosm/kg (275-300); CREATINE KINASE 2334 UL (21-215); CREATININE - SERUM 2.1 mg/dL (0.6-1.3); GLUCOSE 144 mg/dL (74-106); TROPONIN-I 3.867 ng/mL (0.000-0.060); eGFR NON AFRICAN AMERICAN 24 mL/min (90-120)
--- NOTE | 2019-12-06 08:54 | NUR ---
AM MEDICATION GIVEN. LEVOPHED TITRATED DOWN. WILL MONITOR BLOOD PRESSURE. PT ALERT AND ORIENTED AND GOOD RANGE OF MOTION.
--- NOTE | 2019-12-06 09:55 | NUR ---
POTASSIUM REPLACEMENT INITIATED.
--- NOTE | 2019-12-06 11:03 | NUR ---
REASSESSMENT COMPLETED. PT HAS NO COMPLAINTS OR NEEDS AT THIS TIME. VSS. WILL CONTINUE TO MONITOR.
--- NOTE | 2019-12-06 12:00 | NUR ---
PT BACK FROM CT. HOOKED BACK UP TO MONITORS. ALERT AND ORIENTED. NO COMPLAINTS OR NEEDES AT THIS TIME. VSS.
--- NOTE | 2019-12-06 15:00 | NUR ---
REASSESSMENT COMPLETED. PT ALERT AND ORIENTED. VSS. NO COMPLAINTS OR NEEDS AT THIS TIME. WILL CONTINUE TO MONITOR.
--- NOTE | 2019-12-06 16:37 | NUR ---
PT HAD LARGE INCONTINENT BOWEL MOVEMENT. LIQUID. PT CLEANED UP AND LINENS CHANGED. ABLE TO ROLL AND REPOSITION HERSELF.
--- NOTE | 2019-12-06 16:39 | NUR ---
HOTEL ASSISTANT MANAGER IN ROOM WITH PT NOW.
--- NOTE | 2019-12-06 17:43 | NUR ---
PT COMPLAINED OF CHEST PAIN TO DR MORA. EKG DONE. CALLED [facility]ON WITH CARDIOLOGY. 5MG IV VASOTEC GIVEN. NITRO PASTE ORDERED IF THAT DOESN'T RELIEVE THE PAIN. DR SOLIS ASKED I ADD ASPIRIN TO PT'S MED LIST. GIVEN. PT NOW ON BEDPAN FEELING LIKE SHE HAS ANOTHER BOWEL MOVEMENT.
[2019-12-06 18:29] LABS: ANION GAP 14.2 mmol/L (8-16); CALCIUM 7.6 mg/dL (8.5-10.1); CARBON DIOXIDE 26.8 mmol/L (21.0-32.0); CREATININE - SERUM 1.4 mg/dL (0.6-1.3)
--- NOTE | 2019-12-06 19:00 | NUR ---
REPORT REC'D. ASSESSMENT COMPLETED. SMALL, LOOSE BM NOTED. INDEPENDENT WITH REPOSITIONING. CALL LIGHT IN REACH AND WORKING. NON PRODUCTIVE COUGH NOTED, UNABLE TO GET SPUTUM CULTURE AT THIS TIME.
--- NOTE | 2019-12-06 20:30 | NUR ---
C/O SEVERE 7/10 CHEST PAIN. APPLIED NITRO PASTE PER ORDERS
--- NOTE | 2019-12-06 21:00 | NUR ---
STATES PAIN DECREASED TO A 3 AND IS BETTER. MANNITOL HUNG PER ORDERS
--- NOTE | 2019-12-06 21:30 | NUR ---
PT CRYING, C/O 10/10 DULL PRESSURE TO CHEST. ALSO STATES THAT SHE NEEDS TO GET AN ORDER FOR REQUIP FOR RESTLESS LEGS WHEN I CALL THE DOCTOR
--- NOTE | 2019-12-06 22:00 | NUR ---
SPOKE WITH DR. MITCHELL, ORDER FOR EKG NITRO 0.4 MG SL, AND LABS (CK,CK-MB, TROP 1). EKG DONE AND REPORTED TO DR. MITCHELL WITH NO NEW ORDERS. REPORTED NITRO SL HELPED VERY LITTLE AND NEW ORDER FOR MORPHINE 2MG NOW IV. DIFFICULTY DRAWING FROM PICC LINE. BLOOD DRAW FROM LEFT AC X 1 ATTEMPT, VERY LITTLE BLOOD LOSS.
--- NOTE | 2019-12-06 22:45 | NUR ---
STATES MORPHINE IS WORKING, PT DROWSY BUT WAKES TO VOICE
[2019-12-06 23:07] LABS: CKMB 32.6 U/L (0.0-3.6); GLUCOSE 91 mg/dL (74-106)
[2019-12-06 23:13] LABS: CREATINE KINASE 1979 UL (21-215); POTASSIUM - SERUM 3.3 mmol/L (3.5-5.1); TROPONIN-I 2.148 ng/mL (0.000-0.060)
--- NOTE | 2019-12-06 23:30 | NUR ---
K 3.3. REPLACED POTASSIUM PER ELECT PROTOCOL.
[2019-12-07] VITALS (24 sets, daily range): BP systolic 123–192; BP diastolic 35–85
--- NOTE | 2019-12-07 01:00 | NUR ---
EYES CLOSED, WAKES TO VOICE. STATES CHEST PAIN IS MANAGEABLE.
--- NOTE | 2019-12-07 03:00 | NUR ---
CHG BATH GIVEN WITH COMPLETE LINEN CHANGE. MEDIUM, LOOSE BM
[2019-12-07 04:40] LABS: BASOPHILS 0.1 % (0-2); EOSINOPHILS 0 % (0-7); HEMATOCRIT 31.4 % (36.0-48.0); HEMOGLOBIN 9.3 g/dL (12-16); IMMATURE GRANULOCYTES 0.2 % (0-5); LYMPHOCYTES 17.5 % (15-50); MCHC 29.6 g/dL (31.0-37.0); MCV 77.5 fL (80.0-100.0); MEAN PLATELET VOLUME 9.4 fL (7.4-10.4); MONOCYTES 8.2 % (2-11); PLATELET COUNT 180 10x3/uL (130-400); RBC 4.05 10x6/uL (4.00-5.40); RDW 17.8 % (11.5-14.5); WBC 8.9 10x3/uL (4.8-10.8)
--- NOTE | 2019-12-07 05:00 | NUR ---
PT AWAKE, WATCHING TV. INDEPENDENT WITH REPOSITIONING
[2019-12-07 05:13] LABS: ALBUMIN 2.6 g/dL (3.4-5.0); ALKALINE PHOSPHATASE 55 U/L (30-120); ALT (SGPT) 311 U/L (10-68); BILIRUBIN - TOTAL 0.41 mg/dL (0.2-1.3); CALC OSMOLALITY 290 mosm/kg (275-300); CALCIUM 7.6 mg/dL (8.5-10.1); CARBON DIOXIDE 29.5 mmol/L (21.0-32.0); CHLORIDE - SERUM 104 mmol/L (98-107); CREATINE KINASE 1561 UL (21-215); CREATININE - SERUM 1.2 mg/dL (0.6-1.3); GLUCOSE 82 mg/dL (74-106); MAGNESIUM - SERUM 2.9 mg/dL (1.8-2.4); PHOSPHOROUS 2.1 mg/dL (2.5-4.9); POTASSIUM - SERUM 3.8 mmol/L (3.5-5.1); PROTEIN - SERUM 5.6 g/dL (6.4-8.2); SODIUM 142 mmol/L (136-145); TROPONIN-I 1.691 ng/mL (0.000-0.060); UREA NITROGEN 37 mg/dL (7-18); eGFR NON AFRICAN AMERICAN 46 mL/min (90-120)
[2019-12-07 05:25] LABS: CKMB 24.4 U/L (0.0-3.6)
--- NOTE | 2019-12-07 06:00 | NUR ---
0430- 162/75 0445- 180/83 0500- 174/76 0510- SPOKE WITH STUART ALARCON AND NO NEW ORDERS. TOLD TO CALL DR. MORA. [phone]- PAGED DR. MORA AND IMMEDIATELY REC'D CALL. NO NEW ORDERS. WAS TOLD THAT IF IT IS OK WITH CARDIO THEN WE CAN DC THE ORDER TO KEEP SBP BETWEEN 120-140.
--- NOTE | 2019-12-07 07:00 | NUR ---
BEDSIDE REPORT RECEIVED. SHIFT ASSESSMENT COMPLETED PER FLOWSHEET, SEE FLOWSHEET FOR INFORMATION. PT STATING "I'VE BEEN SITTING IN MY OWN SHIT FOR OVER 4 HOURS NOW. YOU'RE A HORRIBLE NURSE, WHAT'S YOUR NAME? I'M TELLING YOUR BOSS." GAVE PT MY NAME AND INFORMED HER THAT THE NIGHT NURSE JUST GAVE HER A BATH AT 0600 AND SHE WAS CLEAN, BUT I WOULD DEFINITELY CLEAN HER UP. PT THEN ARGUED THAT "YOU KNOW NOTHING, YOU'RE TRYING TO KILL ME. YOU'RE NOT DOING THIS RIGHT, JUST LEAVE ME ALONE." INFORMED PT THAT I AM HER NURSE TODAY AND I WILL DO MY BEST TO TAKE CARE OF HER TO THE BEST OF MY ABILITIES. PT THEN STATED "WELL IF YOU'RE SUCH A GOOD NURSE GIVE ME WATER THEN." INFORMED PT THAT HER ORDERS ARE NPO AND SHE IS NOT TO HAVE WATER, PT THEN GRABS CUP OFF BEDSIDE AND TRIES TO THROW CUP AT ME TO MAKE ME GIVE HER MORE WATER. INFORMED THE PT THAT I WILL NOT TOLERATE THINGS BEING THORWN AT ME, AND I CAN ONLY DO WHAT THE DR ORDERS SAY AND THEY SAY SHE IS NPO. PT ROLLED HER EYES AND STATED "WHATEVER, YOU'RE JUST TRYING TO KILL ME. I DONT CARE." ONCE AGAIN, EXPLAINED TO PT THAT I AM HERE TO HELP HER WITH WHATEVER SHE NEEDS LONG THE DR ORDERS SAY I CAN. WILL CONT TO MONITOR.
--- NOTE | 2019-12-07 10:07 | NUR ---
PT RESTING IN BED WITH EYES CLOSED. WHEN ASKED IF SHE NEEDED ANYTHING PT STATES "I AM HAVING A HEART ATTACK, YOU NEED TO GIVE ME PAIN MEDICINE, THAT IS THE ONLY THING THAT HELPS WHEN I HAVE A HEART ATTACK." PT STATES "TIGHTNESS IN CHEST, NOT HARD TO BREATH, AND NO PAIN ANYWHERE ELSE. AT BEDSIDE, NOTIFIED. NO NEW ORDERS. TRIED TO CALL DR.NORRED MCCLOUD TIMES, NO ANSWER. WILL CONT TO MONITOR.
--- NOTE | 2019-12-07 10:13 | NUR ---
DR.NORRED MIDDLETON. WILL CONT TO MONITOR.
--- NOTE | 2019-12-07 11:00 | NUR ---
AT BEDSIDE, EKG EXAMINED. NEW ORDERS RECEIVED. REASSESSMENT COMPLETED PER FLOWSHEET, SEE FLOWSHEET FOR INFORMATION. PT IN BED RESTING WITH EYES CLOSED. WILL CONT TO MONITOR.
--- NOTE | 2019-12-07 13:00 | NUR ---
PT REPOSITIONED AND CLEANED UP AFTER LARGE LIQUID BM. LINEN CHANGED. NO ACUTE NEEDS OR DISTRESS NOTED AT THIS TIME. ASKED PT ABOUT HER CHEST PAIN AND SHE STATED "I DON'T HAVE ANY ANYMORE, I DON'T HURT ANYWHERE." VSS. WILL CONT TO MONITOR.
--- NOTE | 2019-12-07 15:00 | NUR ---
REASSESSMENT COMPLETED PER FLOWSHEET, SEE FLOWSHEET FOR INFORMATION. AT BEDSIDE. LARGE LIQUID BM NOTED, LINEN CHANGED AND PT CLEANED. NO ACUTE NEEDS OR DISTRESS NOTED AT THIS TIME. VSS. WILL CONT TO MONITOR.
--- NOTE | 2019-12-07 17:00 | NUR ---
CLEANED PT UP FROM LIQUID BM, ASKED PT IF THERE WAS ANYTHING I COULD DO WHILE I WAS IN THE ROOM THE PT DENIED ANY NEEDS AT THAT TIME, WALK OUT OF THE ROOM AND THE PT YELLS AT ME STATING "I POOPED, YOU NEED TO COME CLEAN ME UP NOW." REMINDED PT THAT I JUST CLEANED HER BUT I WOULD LOOK AGAIN, LOOKED AGAIN AND THERE WAS NO BM NOTED. IMFORMED PT THAT I WOULD NOT CLEAN HER BECAUSE THERE WAS NO BM NOTED, PT STATED "YOU NEED TO CLEAN ME NOW, I KNOW IM DIRTY BECAUSE YOU DON'T KNOW WHAT YOU'RE DOING." ONCE AGAIN ASSESSED PT FOR BM, NO BM NOTED. WIPED PT AND SHOWED HER THAT THE WIPE WAS CLEAN. PT STATED "OH, GUESS I DIDN'T, I GUESS YOU HAD TO COME IN HERE FOR NOTHING HUH?" NO ACUTE NEEDS OR DISTRESS NOTED AT THIS TIME. VSS. WILL CONT TO MONITOR.
--- NOTE | 2019-12-07 19:13 | NUR ---
RESPONDED TO PATIENT'S CALL LIGHT AND FIXED BEEPING IV PUMP. PATIENT STATED "I THINK I POOPED" CHECKED PATIENT AND SHE WAS CLEAN. EXPLAINED TO HE PATIENT THAT I WOULD BE BACK WITH HER NIGHT MEDS AND ASKED IF SHE NEEDS ANYTHING WITH HER MEDS. PATIENT STATED A LARGE CUP OF WATER WHEN I COME BACK. PATIENT DENIES OTHER NEEDS AT THIS TIME. BED IN LOWEST POSITION, CALL LIGHT WITHIN REACH, AND BED ALARM ON. WILL CONTINUE TO MONITOR.
--- NOTE | 2019-12-07 20:15 | NUR ---
ADMINISTERED MEDS PER ORDERS. PATIENT REFUSED INSULIN FOR BLOOD GLUCOSE OF 155. PATIENT DENIES OTHER NEEDS AT THIS TIME. BED IN LOWEST POSITION AND CALL LIGHT WITHIN REACH. WILL CONTINUE TO MONITOR.
--- NOTE | 2019-12-07 21:18 | NUR ---
CLEANED PATIENT UP AFTER INCONTINENT BM. PATIENT DENIES OTHER NEEDS AT THIS TIME. WILL CONTINUE TO MONITOR.
--- NOTE | 2019-12-07 22:02 | NUR ---
CLEANED PATIENT UP AFTER INCONTINENT BM. PATIENT DENIES OTHER NEEDS AT THIS TIME. WILL CONTINUE TO MONITOR.
--- NOTE | 2019-12-07 23:39 | NUR ---
CLEANED PATIENT UP AFTER INCONTINENT BM. PATIENT REFUSED INSULIN FOR BLOOD GLUCOSE 152. PATIENT DENIES OTHER NEEDS AT THIS TIME. WILL CONTINUE TO MONITOR.
--- NOTE | 2019-12-07 23:48 | NUR ---
CLEANED PATIENT UP AFTER INCONTINENT BM. PATIENT DENIES OTHER NEEDS AT THIS TIME. WILL CONTINUE TO MONITOR.
[2019-12-08] VITALS (17 sets, daily range): BP systolic 115–193; BP diastolic 40–87
--- NOTE | 2019-12-08 01:06 | NUR ---
PATIENT RESTING IN BED WITH EYES CLOSED AND NO S/S OF DISTRESS. BED IN LOWEST POSITION AND CALL LIGHT WITHIN REACH. WILL CONTINUE TO MONITOR.
--- NOTE | 2019-12-08 01:19 | NUR ---
CLEANED PATIENT UP AFTER INCONTINENT BM. PATIENT DENIES OTHER NEEDS. WILL CONTINUE TO MONITOR.
--- NOTE | 2019-12-08 02:10 | NUR ---
CLEANED PATIENT UP AFTER INCONTIENT BM.
--- NOTE | 2019-12-08 02:48 | NUR ---
CLEANED PATIENT UP AFTER INCONTINENT EPISODE.
--- NOTE | 2019-12-08 04:10 | NUR ---
CLEANED PATIENT UP AFTER INCONTINENT EPISODE. AILIN AM LABS FROM PICC. PATIENT DENIES OTHER NEEDS AT THIS TIME. WILL CONTINUE TO MONITOR.
--- NOTE | 2019-12-08 04:47 | NUR ---
CLEANED PATIENT UP AFTER INCONTINENT BM
[2019-12-08 05:35] LABS: BASOPHILS 0 % (0-2); EOSINOPHILS 0.2 % (0-7); HEMATOCRIT 34.4 % (36.0-48.0); HEMOGLOBIN 10.1 g/dL (12-16); IMMATURE GRANULOCYTES 0.3 % (0-5); LYMPHOCYTES 19.6 % (15-50); MCH 22.8 pg (26.0-34.0); MCHC 29.4 g/dL (31.0-37.0); MCV 77.7 fL (80.0-100.0); MEAN PLATELET VOLUME 9.7 fL (7.4-10.4); MONOCYTES 7.5 % (2-11); NEUTROPHILS 72.4 % (40-80); PLATELET COUNT 200 10x3/uL (130-400); RBC 4.43 10x6/uL (4.00-5.40); RDW 17.9 % (11.5-14.5)
[2019-12-08 05:39] LABS: ALBUMIN 2.8 g/dL (3.4-5.0); ANION GAP 11.4 mmol/L (8-16); BILIRUBIN - TOTAL 0.52 mg/dL (0.2-1.3); CALCIUM 7.9 mg/dL (8.5-10.1); CARBON DIOXIDE 27.9 mmol/L (21.0-32.0); MAGNESIUM - SERUM 2.7 mg/dL (1.8-2.4); PHOSPHOROUS 1.7 mg/dL (2.5-4.9); POTASSIUM - SERUM 3.3 mmol/L (3.5-5.1); PROTEIN - SERUM 6.1 g/dL (6.4-8.2)
[2019-12-08 05:48] LABS: CREATININE - SERUM 0.8 mg/dL (0.6-1.3)
--- NOTE | 2019-12-08 06:34 | NUR ---
BROUGHT PATIENT A BLANKET PER HER REQUEST. PATIENT DENIES OTHER NEEDS AT THIS TIME. WILL CONTINUE TO MONITOR.
--- NOTE | 2019-12-08 07:00 | NUR ---
BEDSIDE REPORT RECEIVED. SHIFT ASSESSMENT COPLETED PER FLOWSHEET, SEE FLOWSHEET FOR INFORMATION. PT RESTING IN BED WATCHING TV. NO ACUTE NEEDS OR DISTRESS NOTED AT THIS TIME, LINEN CHANGED AND PT CLEANED. WILL CONT TO MONITOR.
--- NOTE | 2019-12-08 09:00 | NUR ---
PT IN BED RESTING WATCHING TV. N OACUTE NEEDS OR DISTRESS NOTED AT THIS TIME. WILL CONT TO MONITOR.
--- NOTE | 2019-12-08 11:00 | NUR ---
AT BEDSIDE, NEW ORDER RECEIVED. NO ACUTE NEEDS OR DISTRESS NOTED AT THIS TIME. VSS. WILL CONT TO MONITOR.
--- NOTE | 2019-12-08 13:00 | NUR ---
PT RESTING IN BED WATCHING TV. CLEANED PT AND LINEN CHANGED. AT BEDSIDE. WILL CONT TO MONITOR. VSS.
--- NOTE | 2019-12-08 15:00 | NUR ---
PT REPOSITIONED HERSELF. CLEANED PT. NO ACUTE NEEDS OR DISTRESS NOTED AT THIS TIME. VSS. WILL CONT TO MONITOR.
--- NOTE | 2019-12-08 17:00 | NUR ---
EXPLAINED TO PT THAT SHE NEEDS TO BE MOVING HERSELF IN BED MORE, HER BOTTOM WAS STARTING TO GET RED. PT INSISTED THAT HER DOCTORS TO NOT MOVE, ENCOURAGED PT TO MOVE HERSELF IN BED. CLEAN LINEN CHANGED. WILL CONT TO MONITOR.
--- NOTE | 2019-12-09 01:00 | NUR ---
ADMINISTERED POTASSIUM PER ELECTROLYTE PROTOCOL. PT REQUESTED TO HAVE POTASSIUM CRUSED IN APPLESAUCE. PROVIDED APPLESAUCE PER REQUEST. DURING ORAL ADMINISTRATION PT BEGAN VOMMITING, AND HAVING DIARRHEA. PT STATES SHE FELT A LUMP OF POTASSIUM IN TH APPLESAUCE. STATES THIS CAUSES HER TO VOMIT. PROVIDED COMPLETE BED BATH AND CLEANED INCONTINENT STOOL.
[2019-12-09 03:00] VITALS: BP 157/66
[2019-12-09 03:54] LABS: BASOPHILS 0.1 % (0-2); EOSINOPHILS 0.1 % (0-7); HEMATOCRIT 34.2 % (36.0-48.0); IMMATURE GRANULOCYTES 0.7 % (0-5); LYMPHOCYTES 21.8 % (15-50); MCH 22.7 pg (26.0-34.0); MCHC 29.2 g/dL (31.0-37.0); MCV 77.7 fL (80.0-100.0); MEAN PLATELET VOLUME 9.3 fL (7.4-10.4); MONOCYTES 9.5 % (2-11); NEUTROPHILS 67.8 % (40-80); PLATELET COUNT 192 10x3/uL (130-400); RDW 17.7 % (11.5-14.5); WBC 7.3 10x3/uL (4.8-10.8)
--- NOTE | 2019-12-09 04:00 | NUR ---
PT RESTING WITH EYES CLOSED. PT STATES SHE STILL FEELS NAUSEATED. UNABLE TO ADMINISTER ZOFRAN AT THIS TIME. AM LABS RETURNED. THE CORRECTED CALCIUM IS 8.72 WILL PASS LOW VALUE TO ONCOMMING RN. JACOB 2.3. WILL SPEAK WITH PHARMACY ABOUT IV ADMINISTRATION SINCE PT CONTINUES TO C/O N/V. POTASSIUM IS WNL AT THIS TIME.
[2019-12-09 04:25] LABS: ALBUMIN 2.6 g/dL (3.4-5.0); BILIRUBIN - TOTAL 0.44 mg/dL (0.2-1.3); CALCIUM 7.6 mg/dL (8.5-10.1); CARBON DIOXIDE 28.5 mmol/L (21.0-32.0); CREATININE - SERUM 0.9 mg/dL (0.6-1.3); MAGNESIUM - SERUM 2.5 mg/dL (1.8-2.4); PROTEIN - SERUM 5.9 g/dL (6.4-8.2)
[2019-12-09 04:30] LABS: ANION GAP 11.2 mmol/L (8-16); PHOSPHOROUS 2.3 mg/dL (2.5-4.9); POTASSIUM - SERUM 3.7 mmol/L (3.5-5.1)
[2019-12-09 07:00] VITALS: BP 163/64
--- NOTE | 2019-12-09 07:00 | NUR ---
ASSESSMENT COMPLETE PER FLOWSHEET. VOICES NO CO AT TIME.
--- NOTE | 2019-12-09 10:18 | NUR ---
Nutrition follow-up: Pt continues with clear liquids 2/2 nausea, vomiting, diarrhea Labs reviewed Wt: 213# Recommend starting ProcalAmine PPN @ 75 ml/hr due to NPO/Clear liquids x [address] following.
[2019-12-09 11:00] VITALS: BP 153/58
--- NOTE | 2019-12-09 11:00 | NUR ---
SEVERAL STOOLS NOTED.
--- NOTE | 2019-12-09 12:04 | NUR ---
Rehab Prescreening Consult recieved and the chart has been reviewed. He is [facility] and will need a preauth. He will need a PT and an OT eval, but is currently COVID 19 pending. Once cleared for COVID and the eval's are completed information will be submitted to [facility]. Daphne Shah RN Clinical Liaison, Rehab
[2019-12-09 15:00] VITALS: BP 154/60
--- NOTE | 2019-12-09 15:37 | NUR ---
Redness/excoriation noted around coccyx related to incontinence (diarrhea). Calmoseptine cream has been ordered to heal and protect skin. Wound care will monitor.
--- NOTE | 2019-12-09 17:00 | NUR ---
TRANSFER TO FLOOR VIA BED.
--- NOTE | 2019-12-09 17:15 | NUR ---
PT TRANSFER TO [facility] 2 VIA BED.
--- NOTE | 2019-12-09 17:29 | NUR ---
PT ARRIVED VIA STRETCHER, STATES WE CAN NOT MOVE HER D/T AN AIR BUBBLE IN HER BACK. WILL CONFIRM WITH DR. CENTENO. CL IN REACH, SRX2. ALERT AND ORIENTED, UNABLE TO AMBULATE. URIEL ANDERSON
--- NOTE | 2019-12-09 17:41 | NUR ---
pt c/o the TV NOT BEING CLEAR ENOUGH. SHE STATES THAT HER T/V IN ICU WAS CLEAR AND HAD VIBRANT COLORS, UNSURE HOW TO RESOLVE THIS SPECIAL NEED. WILL CNT TO MONITOR CLOSELY. CL IN REACH, SRX2.
--- NOTE | 2019-12-09 19:20 | NUR ---
RECEIVED REPORT, WILL ASSUME CARE OF PLAN, DENIES ANY NEEDS, BED IS LOW, SRX2, CALL LIGHT IN REACH, WILL CONTINUE PLAN OF CARE
--- NOTE | 2019-12-09 21:25 | MORECARE ---
CASE MANAGEMENT DISCHARGE SUMMARY PATIENT: FLY ALMAZAN UNIT: [id number] ADM DATE: 12/05/19 AGE: 79 : 38 SEX: F ROOM/BED: D.2111 AUTHOR: MARY MCCAIN PHYSICIAN: REFERRING PHYSICIAN: HAYDEN MEJIA MD DATE OF SERVICE: 12/09/19 Discharge Plan Patient Name: FLY ALMAZAN [facility] [facility] 1940 Planned Disposition: Home Anticipated Discharge Date: Discharge Date: Expected LOS: Initial Reviewer: [email or web address] Initial Review Date: 12/05/2019 Generated: 12/09/19 10:25 pm DCPIA - Discharge Planning Initial Assessment Updated by [email or web address]: Kellen Marcano on 12/09/19 9:24 pm * Is the patient Alert and Oriented? Yes * How many steps to enter\exit or inside your home? RAMP * PCP MIRELES * Pharmacy [facility] * Preadmission Environment Home Alone * ADLs Independent * Other Equipment POWER W/C, HOME 02 @ hs * List name and contact numbers for known caregivers / representatives who currently or will assist patient after discharge: YANDEL GONZALES - SISTER - [phone] RUBINA / EVITA ALMAZAN - SON - [phone] * Verbal permission to speak to the caregivers and representatives has been obtained from the patient. Yes * Community resources currently utilized None * Additional services required to return to the preadmission environment? No * Can the patient safely return to the preadmission environment? Yes * Has this patient been hospitalized within the prior 30 days at any hospital? No Patient Name: FLY ALMAZAN Page [id number] at 2125 All edits/amendments must be made on the electronic document DICTATION DATE: 12/09/192124 LEASES AND LAND SUPERVISOR: WILFREDO 12/09/192124 RPT#: [id number] DC DATE: STATUS: ADM IN [facility] [address] [place] [address] END OF REPORT
--- NOTE | 2019-12-09 21:32 | MORECARE ---
CASE MANAGEMENT DISCHARGE SUMMARY PATIENT: FLY ALMAZAN UNIT: [id number] ADM DATE: 12/05/19 AGE: 79 : 38 SEX: F ROOM/BED: D.1137 AUTHOR: ADÁN,DOC PHYSICIAN: REFERRING PHYSICIAN: HAYDEN MEJIA MD DATE OF SERVICE: 12/09/19 Discharge Plan Patient Name: FLY ALMAZAN [facility]:[place] : 1940 Planned Disposition: Home Anticipated Discharge Date: Discharge Date: Expected LOS: Initial Reviewer: [email or web address] Initial Review Date: 12/05/2019 Generated: 12/09/19 10:32 pm Comments DCP- Discharge Planning Updated by [id number]: Kellen Marcano on 12/09/19 8:[address] Patient Name: FLY ALMAZAN Admission Status: ER Accout number: [id number] Admission Date: 12-05-2019 : 1940 Admission Diagnosis:SEPSIS, UNSPECIFIED ORGANISM Attending: HAYDEN MARINA Current LOS: 4 Anticipated DC Date: Planned Disposition: Home Primary Insurance: [facility] [employer] Discharge Planning Comments: CM met with patient to complete initial dc planning assessment. CM educated patient on the CM role and verbal consent given by patient to complete assessment. Patient lives at home alone where she is independent with her care. At discharge patient plans to return home and feels this is a safe discharge. CM discussed availability of home health, rehab services, and medical equipment. Patient states that she has a power w/c and home 02 for HS (? [facility]). Patient states at this time she isn't interested in home health. Patient denied known discharge needs at this time. CM will continue to follow and will assist as needed with dc plans/needs. Crime Data Specialist: Kellen Marcano DCPIA - Discharge Planning Initial Assessment Updated by [email or web address]: Kellen Marcano on 12/09/19 9:24 pm * Is the patient Alert and Oriented? Yes * How many steps to enter\exit or inside your home? RAMP * PCP MIRELES * Pharmacy [facility] * Preadmission Environment Home Alone * ADLs Independent * Other Equipment POWER W/C, HOME 02 @ hs * List name and contact numbers for known caregivers / representatives who currently or will assist patient after discharge: YANDEL GONZALES - SISTER - [phone] RUBINA ALMAZAN - SON - [phone] * Verbal permission to speak to the caregivers and representatives has been obtained from the patient. Yes * Community resources currently utilized None * Additional services required to return to the preadmission environment? No * Can the patient safely return to the preadmission environment? Yes * Has this patient been hospitalized within the prior 30 days at any hospital? No Last DP export: 12/09/19 8:25 pm Patient Name: FLY ALMAZAN Page [phone] at 2132 All edits/amendments must be made on the electronic document DICTATION DATE: 12/09/192131 PEARL GLUE OPERATOR: WILFREDO 12/09/192131 RPT#: [id number] DC DATE: STATUS: ADM IN [facility] [address] [place] [address] END OF REPORT
[2019-12-10 00:09] VITALS: BP 135/44
[2019-12-10 05:21] LABS: BASOPHILS 0.1 % (0-2); HEMATOCRIT 34.6 % (36.0-48.0); HEMOGLOBIN 9.7 g/dL (12-16); IMMATURE GRANULOCYTES 1.3 % (0-5); LYMPHOCYTES 28.7 % (15-50); MCH 22.4 pg (26.0-34.0); MEAN PLATELET VOLUME 9.7 fL (7.4-10.4); MONOCYTES 11.6 % (2-11); NEUTROPHILS 57.3 % (40-80); PLATELET COUNT 189 10x3/uL (130-400); RBC 4.34 10x6/uL (4.00-5.40); WBC 7.9 10x3/uL (4.8-10.8)
[2019-12-10 05:27] LABS: MCV 79.7 fL (80.0-100.0)
[2019-12-10 06:33] LABS: ALBUMIN 2.5 g/dL (3.4-5.0); BILIRUBIN - TOTAL 0.35 mg/dL (0.2-1.3); CALCIUM 7.6 mg/dL (8.5-10.1); CARBON DIOXIDE 24.8 mmol/L (21.0-32.0); CREATININE - SERUM 0.8 mg/dL (0.6-1.3); MAGNESIUM - SERUM 2.4 mg/dL (1.8-2.4); POTASSIUM - SERUM 3.8 mmol/L (3.5-5.1); PROTEIN - SERUM 5.1 g/dL (6.4-8.2)
[2019-12-10 08:29] VITALS: BP 167/64
--- NOTE | 2019-12-10 11:47 | MORECARE ---
CASE MANAGEMENT DISCHARGE SUMMARY PATIENT: FLY ALMAZAN UNIT: [id number] ADM DATE: 12/05/19 AGE: 79 : 38 SEX: F ROOM/BED: D.2860 AUTHOR: MARY MCCAIN PHYSICIAN: REFERRING PHYSICIAN: HAYDEN MEJIA MD DATE OF SERVICE: 12/10/19 Discharge Plan Patient Name: FLY ALMAZAN Facility: [facility]:[place] : 1940 Planned Disposition: Home Anticipated Discharge Date: Discharge Date: Expected LOS: Initial Reviewer: [email or web address] Initial Review Date: 12/05/2019 Generated: 12/10/19 12:46 pm Comments DCP- Discharge Planning Updated by [email or web address]: Pat Schroeder on 12/10/19 10:[address] Sitting up in chair. Agrees to inpatient rehab at [facility], SINA signed. I notified Jacqueline in inpatient rehab. CM will continue to follow and assist with discharge planning/needs. DCP- Discharge Planning Updated by [email or web address]: Kellen Marcano on 12/09/19 8:[address] Patient Name: FLY ALMAZAN Admission Status: ER Accout number: [id number] Admission Date: 12-05-2019 : 1940 Admission Diagnosis:SEPSIS, UNSPECIFIED ORGANISM Attending: HAYDEN MARINA Current LOS: 4 Anticipated DC Date: Planned Disposition: Home Primary Insurance: [facility] MEDICARE SOLUTIONS Discharge Planning Comments: CM met with patient to complete initial dc planning assessment. CM educated patient on the CM role and verbal consent given by patient to complete assessment. Patient lives at home alone where she is independent with her care. At discharge patient plans to return home and feels this is a safe discharge. CM discussed availability of home health, rehab services, and medical equipment. Patient states that she has a power w/c and home 02 for HS (? [facility]). Patient states at this time she isn't interested in home health. Patient denied known discharge needs at this time. CM will continue to follow and will assist as needed with dc plans/needs. Executive Services Administrator: Kellen Marcano DCPIA - Discharge Planning Initial Assessment Updated by [email or web address]: Kellen Marcano on 12/09/19 9:24 pm * Is the patient Alert and Oriented? Yes * How many steps to enter\exit or inside your home? RAMP * PCP MIRELES * Pharmacy [facility] * Preadmission Environment Home Alone * ADLs Independent * Other Equipment POWER W/C, HOME 02 @ hs * List name and contact numbers for known caregivers / representatives who currently or will assist patient after discharge: YANDEL GONZALES - SISTER - [phone] RUBINA ALMAZAN - SON - [phone] * Verbal permission to speak to the caregivers and representatives has been obtained from the patient. Yes * Community resources currently utilized None * Additional services required to return to the preadmission environment? No * Can the patient safely return to the preadmission environment? Yes * Has this patient been hospitalized within the prior 30 days at any hospital? No Coverage Notice Reviewer: DEBORA Schroeder Notice Issued Date-Time: 12/10/2019 11:39 Notice Type: IM Discharge Notice Notice Delivered To: Patient Relationship to Patient: Self Revenue Manager Name: Delivery Method: HAND - Hand Delivered Xin Days: Prior Verbal Notification: Recipient Understood Notice: Yes Recipient Signature: Yes Med Rec Note Co-signed by Attending: Coverage Notice Comment: IMM explained, signed, given, copy placed in Mr Reviewer: [id number] Schroeder Notice Issued Date-Time: 12/10/2019 11:39 Notice Type: Patient Choice Letter Notice Delivered To: Patient Relationship to Patient: Self Revenue Manager Name: Delivery Method: HAND - Hand Delivered Xin Days: Prior Verbal Notification: Recipient Understood Notice: Yes Recipient Signature: Yes Med Rec Note Co-signed by Attending: Coverage Notice Comment: SINA for [facility] inpatient rehab Last DP export: 12/09/19 8:32 pm Patient Name: FLY ALMAZAN Page [phone] at 1147 All edits/amendments must be made on the electronic document DICTATION DATE: 12/10/19 1146 PAYROLL EXAMINER: WILFREDO 12/10/19 1146 RPT#: [id number] DC DATE: STATUS: ADM IN [facility] [address] [place] [address] END OF REPORT
[2019-12-10 12:22] VITALS: BP 182/54
--- NOTE | 2019-12-10 16:43 | NUR ---
Rehab Note- Auth initiated & approved for 3 day stay with [facility], Leonel Kwok will be the case manger for review, his phone # [phone] [id number], fax #[phone], Auth #[id number]. Spoke with LOI Stewart. Thank you for this referral! Jacqueline Starks RN Clinical Liaison, [facility] Rehab
[2019-12-10 17:13] VITALS: BP 191/67
--- NOTE | 2019-12-10 17:18 | NUR ---
REPORT CALLED TO CE RN IN REHAB. CE TO CALL THIS NURSE WITH ROOM NUMBER.
--- NOTE | 2019-12-10 17:24 | NUR ---
PROVIDED VERBAL AND WRITTEN DISCHARGE TEACHING TO PT, WHO VERBALIZED UNDERSTANDING REGARDING TEACHING. SERVICE PROVIDER TO TAKE PT DOWN TO REHAB ONCE PT IS DONE EATING HER DINNER.
--- NOTE | 2019-12-10 17:50 | NUR ---
PT TAKEN DOWN TO REHAB BY PHARMACY GENERAL MANAGER VIA WHEELCHAIR, AND WITH ALL BELONGINGS, NAD NOTED.
--- NOTE | 2019-12-11 09:23 | MORECARE ---
CASE MANAGEMENT DISCHARGE SUMMARY PATIENT: FLY ALMAZAN UNIT: [id number] ADM DATE: 12/05/19 AGE: 79 : 38 SEX: F ROOM/BED: D.5700 AUTHOR: MARY MCCAIN PHYSICIAN: REFERRING PHYSICIAN: HAYDEN MEJIA MD DATE OF SERVICE: 12/11/19 Discharge Plan Patient Name: FLY ALMAZAN Facility: [facility]:[place] : 1940 Planned Disposition: Home Anticipated Discharge Date: Discharge Date: 12/10/2019 Expected LOS: Initial Reviewer: [email or web address] Initial Review Date: 12/05/2019 Generated: 12/11/19 10:22 am Comments DCP- Discharge Planning Updated by [email or web address]: Pat Schroeder on 12/10/19 10:[address] Sitting up in chair. Agrees to inpatient rehab at [facility], SINA signed. I notified Jacqueline in inpatient rehab. CM will continue to follow and assist with discharge planning/needs. DCP- Discharge Planning Updated by [id number]: Kellen Marcano on 12/09/19 8:[address] Patient Name: FLY ALMAZAN Admission Status: ER Accout number: [id number] Admission Date: 12-05-2019 : 1940 Admission Diagnosis:SEPSIS, UNSPECIFIED ORGANISM Attending: HAYDEN MARINA Current LOS: 4 Anticipated DC Date: Planned Disposition: Home Primary Insurance: [facility] MEDICARE SOLUTIONS Discharge Planning Comments: CM met with patient to complete initial dc planning assessment. CM educated patient on the CM role and verbal consent given by patient to complete assessment. Patient lives at home alone where she is independent with her care. At discharge patient plans to return home and feels this is a safe discharge. CM discussed availability of home health, rehab services, and medical equipment. Patient states that she has a power w/c and home 02 for HS (? [facility]). Patient states at this time she isn't interested in home health. Patient denied known discharge needs at this time. CM will continue to follow and will assist as needed with dc plans/needs. Latcher: Kellen Marcano DCPIA - Discharge Planning Initial Assessment Updated by [email or web address]: Kellen Marcano on 12/09/19 9:24 pm * Is the patient Alert and Oriented? Yes * How many steps to enter\exit or inside your home? RAMP * PCP MIRELES * Pharmacy [facility] * Preadmission Environment Home Alone * ADLs Independent * Other Equipment POWER W/C, HOME 02 @ hs * List name and contact numbers for known caregivers / representatives who currently or will assist patient after discharge: YANDEL GONZALES - SISTER - [phone] RUBINA ALMAZAN - SON - [phone] * Verbal permission to speak to the caregivers and representatives has been obtained from the patient. Yes * Community resources currently utilized None * Additional services required to return to the preadmission environment? No * Can the patient safely return to the preadmission environment? Yes * Has this patient been hospitalized within the prior 30 days at any hospital? No Coverage Notice Reviewer: [email or web address] Schroeder Notice Issued Date-Time: 12/10/2019 11:39 Notice Type: IM Discharge Notice Notice Delivered To: Patient Relationship to Patient: Self Manager Government Name: Delivery Method: HAND - Hand Delivered Xin Days: Prior Verbal Notification: Recipient Understood Notice: Yes Recipient Signature: Yes Med Rec Note Co-signed by Attending: Coverage Notice Comment: IMM explained, signed, given, copy placed in Mr Reviewer: [id number] Schroeder Notice Issued Date-Time: 12/10/2019 11:39 Notice Type: Patient Choice Letter Notice Delivered To: Patient Relationship to Patient: Self Manager Government Name: Delivery Method: HAND - Hand Delivered Xin Days: Prior Verbal Notification: Recipient Understood Notice: Yes Recipient Signature: Yes Med Rec Note Co-signed by Attending: Coverage Notice Comment: SINA for [facility] inpatient rehab Last DP export: 12/10/19 10:47 am Patient Name: FLY ALMAZAN Page 35799 at 0923 All edits/amendments must be made on the electronic document DICTATION DATE: 12/11/19921 COLOR TECHNICIAN: WILFREDO 12/11/19921 RPT#: [id number] DC DATE:12/10/19 STATUS: DIS IN [place] [id number] [place] [address] END OF REPORT
== END 2019-12-10 17:50 | DRG 871 ==
LOC: D.ER 11:23 → D.M2 14:35 → D.ICU 14:35 → D.M2 12-09 17:28
PROVIDERS: Family Medicine; Internal Medicine Cardiovascular Disease; Internal Medicine Nephrology; ADMIT Family Medicine Adult Medicine; ATTEND Family Medicine Adult Medicine
PROC: 05HB33Z Insertion of Infusion Device into Right Basilic Vein, Percutaneous Approach (ICD-10-PCS; principal; 2019-12-05)
PROC: B54MZZA Ultrasonography of Right Upper Extremity Veins, Guidance (ICD-10-PCS; 2019-12-05)
DX: A41.9 Sepsis, unspecified organism (principal); I21.4 Non-ST elevation (NSTEMI) myocardial infarction; J18.9 Pneumonia, unspecified organism; I50.33 Acute on chronic diastolic (congestive) heart failure; J96.02 Acute respiratory failure with hypercapnia; J96.01 Acute respiratory failure with hypoxia; R65.21 Severe sepsis with septic shock; G93.6 Cerebral edema; N17.9 Acute kidney failure, unspecified; E87.1 Hypo-osmolality and hyponatremia; J44.0 Chronic obstructive pulmonary disease with (acute) lower respiratory infection; J44.1 Chronic obstructive pulmonary disease with (acute) exacerbation; I13.0 Hypertensive heart and chronic kidney disease with heart failure and stage 1 through stage 4 chronic kidney disease, or unspecified chronic kidney disease; G93.1 Anoxic brain damage, not elsewhere classified; I25.10 Atherosclerotic heart disease of native coronary artery without angina pectoris; E78.5 Hyperlipidemia, unspecified; E11.69 Type 2 diabetes mellitus with other specified complication; K21.9 Gastro-esophageal reflux disease without esophagitis; I48.0 Paroxysmal atrial fibrillation; I27.20 Pulmonary hypertension, unspecified; N18.9 Chronic kidney disease, unspecified; D63.1 Anemia in chronic kidney disease; E11.22 Type 2 diabetes mellitus with diabetic chronic kidney disease; E87.6 Hypokalemia

== ENCOUNTER 2019-12-10 17:45 | Inpatient (IN) | payer MEDICARE, OTHER ==
[~2019-12-10] VITALS: Ht 157.5 cm; Wt 94.8 kg
--- NOTE | ~2019-12-10 | RHP ---
PATIENT: FLY ALMAZAN MEDICAL RECORD: [id number] ACCOUNT: [id number] [facility] AD[facility]ION DATE: 12/10/19 REHABILITATION HISTORY AND PHYSICAL EXAMINATION POST ADMISSION PHYSICIAN EXAMINATION ADMITTING DIAGNOSIS: Cerebrovascular accident. 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 An 79-year-old female patient with worsening dyspnea on exertion. The patient was seen in the Emergency Room, found to be bradycardic with the heart rates in the 40s. Troponin was elevated, creatinine was 3.5. LFTs were all elevated. She was admitted for pneumonia, non-ST segment elevation myocardial infarction, COVID precautions. She has got a history of coronary artery disease status post stenting of the right coronary artery in September of 2019. The patient has got a history of diabetes, COPD, got a history of pulmonary embolism in the past. The patient apparently sees Dr. Tarango for back injections. The patient apparently got one, became lethargic, had generalized weakness, went to bed with severe headache and then became unstable. She was found by family the following morning. CT showed multiple gas-filled densities in bilateral C3 and C4 segments of the internal carotid artery and within the subarachnoid spaces were concerning for emboli. The patient had some degree of herniation through her foramen magnum, findings of bilateral cerebral hemispheric infarcts, moderate chronic microangiopathy. She has been followed by pulmonary, cardiology, nephrology, neurology throughout her stay. She has been transferred out to medical floor from the ICU. She had been monitored closely for seizures, recent CVA, non-ST segment elevation myocardial infarction. She has been having respiratory treatments, IV therapy, IV antibiotics and meds. Monitor I's and O's closely. She has got decreased quality of life, decreased range of motion, decreased strength, gait disturbance, limited safety awareness and she is at risk for falls. She needs cues for equipment. These are all reasons for not being discharged home at this time. She lives at home alone, was independent with her ADLs and mobility with use of a rolling walker and electric wheelchair for longer distances. Currently, set up for max assist for ADLs, mod assist for mobility. She and her family would like for her to return home at her prior level of functioning or better if possible. COMORBIDITIES: In this patient include weakness, septic shock, non-ST segment elevation, she has got a history of community-acquired pneumonia, bilateral cerebellar hemispheric infarcts, emboli, paroxysmal atrial fib, encephalopathy, elevated troponin, elevated D-dimer, pneumocephalus, ischemic versus embolic encephalopathy, leukocytosis, obstructive sleep apnea, chronic pain, restless legs, hyperlipidemia and an ex-smoker. PAST MEDICAL HISTORY: Significant for diabetes, hypertension, CHF, acid reflux, chronic back pain, sleep apnea, tobacco use. PAST SURGICAL HISTORY: Includes gallbladder surgery, hernia, hysterectomy, tonsillectomy, appendectomy. She has had cataract surgery, left hip bursectomy, left piriformis release, right knee surgery, lumbar fusion with rods, right carotid and left carotid cardiac stents and right knee patellar repair. ALLERGIES: ARTHROTEC, CALAMINE, CYMBALTA, SOTALOL, REGLAN AND GABAPENTIN. HISTORY AND PHYSICAL [id number] FLY ALMAZAN CURRENT MEDICATIONS: Include furosemide 40 mg daily, Jardiance 25 mg daily, aspirin chewable 81 mg daily, furosemide 80 mg daily, on Requip 3 mg at bedtime, Protonix 40 mg at bedtime, metolazone 5 mg twice weekly, insulin Lantus 15 units daily, Lipitor 40 mg at bedtime, glucose replacement protocol and electrolyte replacement protocol at this time are in place. She is on Nitrostat p.r.n., meclizine 12.5 mg b.i.d. p.r.n., Rogers 10/325 one tab every 4 hours p.r.n. HABITS: Does have a history of tobacco use. FAMILY HISTORY: Noncontributory. SOCIAL HISTORY: The patient hopes to return back home and get back to her prior level of functioning. REVIEW OF SYSTEMS: GENERAL: Does complain of weakness and fatigue. HEENT: Denies cold, cough, or congestion. CARDIOVASCULAR: Does complain of chest pain occasionally. LUNGS: Complains of shortness of breath. PHYSICAL EXAMINATION: VITAL SIGNS: Stable, afebrile. GENERAL: A somewhat obese female, in no distress upon exam. HEENT: Normocephalic and atraumatic. Mucosa moist. NECK: Supple. No lymphadenopathy. LUNGS: Clear in upper [place] with decreased breath sounds in the bases. HEART: Regular rate and rhythm. She does have a holosystolic murmur. ABDOMEN: Soft, benign, and nondistended. Positive bowel sounds times 4. EXTREMITIES: No clubbing, cyanosis or edema. NEUROLOGIC: She does have noted weakness. LABORATORY DATA: White count is 8.8, H&H of 11 and 37, and platelet count is 224. Her sodium is 139, potassium 3.5, BUN and creatinine of 16 and 0.9, blood sugar is noted to be 149. ASSESSMENT: An 79-year-old female patient admitted to rehab with a working diagnosis of cerebrovascular accident, probably from embolic phenomenon. The patient has potential to make improvement. We instituted the following multidisciplinary therapies including but not limited to physical, occupational, respiratory, speech, nutritional services, prosthetics and orthotics. Given her complex medical condition and risk for more complications, rehabilitation services cannot be provided at a low level of care such as half-way facility. PLAN: 1. Admit to [facility] for intensive inpatient therapy to include the following disciplines; A. Physical therapy to improve gait, all transfer skills and bed mobility to a modified independent level. B. Occupational therapy to improve activities of daily living. C. Case management to assist with discharge planning and placement options. D. Nutrition to assist with nutritional needs. E. Rehabilitation nursing to assist in monitoring the patient's underlying medical conditions and to assist with any type of bowel or bladder management. 2. The patient's current medication and medical care will be continued. HISTORY AND PHYSICAL [id number] FLY ALMAZAN 3. The patient will be placed on standard fall precautions. 4. The patient's estimated length of stay is approximately 7-10 days. 5. We will watch her renal functions closely. Continue on home medications where appropriate and we will discuss with care team today at noon. TRANSINT:[id number] Voice Confirmation ID: [id number] DOCUMENT ID: [id number] 12/12/2019 Edited for cecilia PENA. JEAN notes whether there has been none or any medical/functional change since admission: - No change since preadmission screen. JEAN attests patient continues to be appropriate for IRF: - Continues to be appropriate. ODILIA BLAND MD CC: [id number] DICTATION DATE: 12/11/19 0936 PLUNGER SCOOP OPERATOR: 12/11/19 1104 ADM IN [facility] [address] [place] [address]
--- NOTE | 2019-12-10 19:14 | NUR ---
GREETED PATIENT AND INTRODUCED MYSELF HER NURSE. PATIENT IS SIGNING ADMISSION PAPERWORK AT THIS TIME. RESPIRATIONS EVEN. NO S/S OF DISTRESS. DENIES ANY NEEDS AT THIS TIME. CALL LIGHT IN REACH.
[2019-12-10 21:58] VITALS: BP 123/57
[2019-12-10 22:10] VITALS: BP 123/57; BMI 38.3
--- NOTE | 2019-12-11 02:23 | NUR ---
PT RESTING QUIETLY WITH EYES CLOSED. RESPIRATIONS EVEN. NO S/S OF DISTRESS. CALL LIGHT IN REACH.
[2019-12-11 08:00] VITALS: BP 137/62
--- NOTE | 2019-12-11 08:00 | NUR ---
AROUSES EASILY.DENIES ANY PAIN.ASSESSMENT COMPLETED.RT ARM PICC LINE WITH DRESSING INTACT.C/O BEING TIRED,BUT DENIES WEAKNESS.IS ALERT AND ORIENTED.WILL CONTINUE WITH CURRENT PLAN OF CARE.CL IN EASY REACH,BED IN LOW POSITION.
[2019-12-11 08:18] LABS: BASOPHILS 0.2 % (0-2); EOSINOPHILS 1.5 % (0-7); HEMATOCRIT 37.5 % (36.0-48.0); HEMOGLOBIN 11.1 g/dL (12-16); IMMATURE GRANULOCYTES 1.5 % (0-5); LYMPHOCYTES 35.5 % (15-50); MCH 23.3 pg (26.0-34.0); MCHC 29.6 g/dL (31.0-37.0); MCV 78.6 fL (80.0-100.0); MEAN PLATELET VOLUME 9.4 fL (7.4-10.4); MONOCYTES 10.5 % (2-11); NEUTROPHILS 50.8 % (40-80); PLATELET COUNT 224 10x3/uL (130-400); RBC 4.77 10x6/uL (4.00-5.40); RDW 18.4 % (11.5-14.5); WBC 8.8 10x3/uL (4.8-10.8)
[2019-12-11 08:27] LABS: ANION GAP 13.8 mmol/L (8-16); CALCIUM 8.5 mg/dL (8.5-10.1); CARBON DIOXIDE 28.7 mmol/L (21.0-32.0); CREATININE - SERUM 0.9 mg/dL (0.6-1.3); POTASSIUM - SERUM 3.5 mmol/L (3.5-5.1)
[2019-12-11 09:54] VITALS: Ht 157.5 cm; Wt 94.8 kg
--- NOTE | 2019-12-11 15:33 | NUR ---
CARE TEAM MEETING: PATIENT IS NEW TO UNIT AND WILL BE RA AT NEXT MEETING. PATIENT PCP IS DR. MIRELES DME AT HOME IS A POWERCHAIR, WHEELCHAIR AND HOME O2. WILL CONTINUE TO FOLLOW WITH PATIENT. DISCHARGE PLANS ARE FOR PATIENT TO RETURN TO HER HOME
--- NOTE | 2019-12-11 19:03 | NUR ---
GREETED PATIENT AND INTRODUCED MYSELF HER NURSE. PATIENT IS SITTING IN WHEELCHAIR RELAXING AT THIS TIME. RESPIRATIONS EVEN. NO S/S OF DISTRESS. PT. DENIES ANY NEEDS AT THIS TIME. CALL LIGHT IN REACH.
[2019-12-11 21:42] VITALS: BP 186/59
--- NOTE | 2019-12-12 02:09 | NUR ---
PT RESTING QUIETLY WITH EYES CLOSED. RESPIRATIONS EVEN. NO S/S OF DISTRESS. CALL LIGHT IN REACH
[2019-12-12 08:00] VITALS: BP 161/56
--- NOTE | 2019-12-12 08:00 | NUR ---
PATIENT IS ALERT/ORIENT. SITTING UP IN BED TO EAT BREAKFAST. CALL LIGHT WITHIN REACH. VOICES NO NEEDS AT THIS TIME. WILL CONTINUE WITH PLAN OF CARE
[2019-12-12] MEDS ORDERED: HYDROCODON-ACE1 EA10 PO (09:06)
--- NOTE | 2019-12-12 17:55 | NUR ---
I have reviewed this patient and I concur with the Shift Assessment completed by the Licensed Practical Nurse today this shift.
--- NOTE | 2019-12-12 19:04 | NUR ---
GREETED PATIENT AND INTRODUCED MYSELF HER NURSE. PATIENT IS CURRENTLY SITTING ON SIDE OF BED. RESPIRATIONS EVEN. NO S/S OF DISTRESS. CALL LIGHT IN REACH. DENIES ANY NEEDS AT THIS TIME.
[2019-12-12 20:54] VITALS: BP 144/51
--- NOTE | 2019-12-13 01:47 | NUR ---
PT RESTING QUIETLY WITH EYES CLOSED. RESPIRATIONS EVEN. NO S/S OF DISTRESS. CALL LIGHT IN REACH.
--- NOTE | 2019-12-13 03:51 | NUR ---
PT RESTING QUIETLY WITH EYES CLOSED. RESPIRATIONS EVEN. NO S/S OF DISTRESS. CALL LIGHT IN REACH.
[2019-12-13 06:22] LABS: ANION GAP 8.8 mmol/L (8-16); CALCIUM 8.5 mg/dL (8.5-10.1); CARBON DIOXIDE 32.1 mmol/L (21.0-32.0); CREATININE - SERUM 0.9 mg/dL (0.6-1.3)
[2019-12-13 06:27] LABS: POTASSIUM - SERUM 2.9 mmol/L (3.5-5.1)
--- NOTE | 2019-12-13 06:40 | NUR ---
CRITICAL POTASSIUM LEVEL OF 2.9. ELECTROLYTE PROTOCOL FOLLOWED. 20MEQ OF POTASSIUM GIVEN PO, NEXT DOSE Q 2H X 3 DOSES. RECHECK K LEVEL IN FOUR HOURS AND AM. SEE MAR. SEE ORDERS.
[2019-12-13 06:46] LABS: BASOPHILS 0.2 % (0-2); EOSINOPHILS 1.4 % (0-7); HEMOGLOBIN 11.2 g/dL (12-16); IMMATURE GRANULOCYTES 0.7 % (0-5); LYMPHOCYTES 45.7 % (15-50); MCHC 29.5 g/dL (31.0-37.0); MONOCYTES 9.2 % (2-11); NEUTROPHILS 42.8 % (40-80); PLATELET COUNT 242 10x3/uL (130-400); RBC 4.87 10x6/uL (4.00-5.40); RDW 18.6 % (11.5-14.5); WBC 9.4 10x3/uL (4.8-10.8)
--- NOTE | 2019-12-13 07:55 | NUR ---
PATIENT UP IN W/C WATCHING TV, AWAKE AND ORIENTED, ASSESSMENT COMPLETE, DENIES ANY NEEDS AT THIS TIME, C/L AND FLUIDS IN REACH.
[2019-12-13 08:18] VITALS: BP 150/75
--- NOTE | 2019-12-13 10:36 | NUR ---
PATIENT DISCHARGING HOME WITH FAMILY TODAY. [facility] WILL PROVIDE THERAPY AT HOME AND [facility] WILL FOLLOW WITH PATIENT. PATIENT WILL SEE DR. MIRELES NEEDED. NO NEW DME NEEDED AT THIS TIME. SINA SIGNED, IMM SERVED AND EXPLAINED, ONE GIVEN TO PATIENT AND ONE FILED IN CHART.DISCHARGE INSTRUCTIONS FAXED TO [facility], PCP AND REVIEWED WITH PATIENT PER PRIMARY NURSE. NO COMPARE DATA REVIEWED PATIENT IS A CLIENT OF [facility].
--- NOTE | 2019-12-13 11:17 | NUR ---
LEFT FLOOR IN W/C, DECLINED NEEDING MEDS CALLED IN, GAVE PERSCRIPTION FOR PAIN MEDICINE, FAMILY PICKED UP AT FRONT DOOR, REVIEWED D/C INSTRUCTIONS AND MEDS WITH PATIENT, DENIED ANY QUESTIONS.
--- NOTE | 2019-12-13 11:36 | NUR ---
DISCHARGE INSTRUCTIONS FAXED TO [facility] , AUTH. # [id number] WITH CONFORMATION RECIEVED.
== END 2019-12-13 11:21 | disposition home health service (06) | DRG 64 ==
LOC: D.REHAB 17:45
PROVIDERS: ADMIT Emergency Medicine; ATTEND Emergency Medicine
DX: I63.9 Cerebral infarction, unspecified (principal); G93.6 Cerebral edema; A41.9 Sepsis, unspecified organism; I21.4 Non-ST elevation (NSTEMI) myocardial infarction; J18.9 Pneumonia, unspecified organism; I50.33 Acute on chronic diastolic (congestive) heart failure; J96.11 Chronic respiratory failure with hypoxia; N17.9 Acute kidney failure, unspecified; G93.40 Encephalopathy, unspecified; I48.0 Paroxysmal atrial fibrillation; I11.0 Hypertensive heart disease with heart failure; E78.5 Hyperlipidemia, unspecified